=== PATIENT | male | born 1970 | race Caucasian/White ===

== ENCOUNTER 2017-09-19 23:33 | Inpatient (IN) | payer MEDICAID, OTHER ==
[~2017-09-19] VITALS: Ht 180.3 cm; Wt 94.8 kg
[~2017-09-19 23:33] MED LIST: ASPIR 8181 MG ORAL; FERROUS SULFAT325 M2 ORAL; FUROSEMIDE40 MG ORAL; K-DUR20 MEQ ORAL; LISINOPRIL20 MG ORAL; LISINOPRIL5 MG ORAL; METOPROLOL TART50 M1 ORAL; NKM; OMEPRAZOLE20 M2 ORAL; ZAROXOLYN2.5 MG ORAL
[2017-09-19] MEDS ORDERED: NKM (23:51)
[2017-09-20] VITALS (9 sets, daily range): BP systolic 120–156; BP diastolic 74–92
--- NOTE | 2017-09-20 00:08 | Emergency Room Report ---
History of Present Illness General Chief Complaint: Dyspnea/Respdistress Source: Patient Present Illness HPI Patient process with complaints of shortness of breath Reports that he feels like he is drowning Initially complained of chest pain as well midsternal However he associates that with the shortness of breath Denies any vomiting denies any diarrhea Patient has diagnosis of CHF however he reports that he is not taking any diuretics Reports that he was homeless for a while and has not had any medicine Allergies: Coded Allergies: No Known Allergies (Unverified , 09/08/13) Patient History Past Medical History: see triage record Pertinent Family History: none Reviewed Nursing Documentation: PMH: Agreed, PSxH: Agreed Nursing Documentation-PMH Past Medical History: No History, Except For Hx Cardiac Problems: Yes - CHF Hx Hypertension: Yes Hx Pacemaker: No - HIV+ Hx Cancer: No Hx Gastrointestinal Problems: Yes Hx Neurological Problems: No Review of Systems All Other Systems: negative except mentioned in HPI Physical Exam Vital Signs Date Time Temp Pulse Resp B/P (MAP) Pulse Ox O2 Delivery O2 Flow Rate FiO2 09/19/17 23:47 100.1 123 19 151/90 96 Room Air 100.0 Sp02 EP Interpretation: reviewed, normal General Appearance: well appearing, no apparent distress Head: normocephalic, atraumatic Eyes: bilateral eye PERRL, bilateral eye EOMI ENT: hearing grossly normal, normal pharynx, TMs + canals normal, uvula midline Neck: full range of motion, supple, no meningismus, no bony tend Respiratory: no rhonchi, no respiratory distress, no retraction, no accessory muscle use, crackles - Bilaterally Cardiovascular #1: normal peripheral pulses, regular rate, rhythm, no edema, no gallop, no JVD, no murmur Gastrointestinal: normal bowel sounds, non tender, soft, no mass, no organomegaly, non-distended, no guarding, no hernia, no pulsatile mass, no rebound Genitourinary: no CVA tenderness Musculoskeletal: normal inspection Neurologic: oriented x3, responsive, educational specialist III-XII nml as tested, motor strength/ tone normal, sensory intact Psychiatric: mood/affect normal Skin: normal color, no rash, warm/dry, palpation normal Lymphatic: normal inspection, no adenopathy Medical Decision Making Diagnostic Impression: Primary Impression: Acute CHF ER Course Patient is a fairly complex patient with multiple differential to consideration including but not limited to cardiac cardiopulmonary and vascular emergencies Patient's BNP is elevated Chest x-ray shows pulmonary congestion Patient did better with oxygenation and Lasix At this time requires admission for further care Labs Test 09/20/17 00:20 09/20/17 01:20 White Blood Count 6.3 K/UL (4.8-10.8) Red Blood Count 5.31 M/UL (4.70-6.10) Hemoglobin 14.7 G/DL (14.2-18.0) Hematocrit 43.9 % (42.0-52.0) Mean Corpuscular Volume 83 FL (80-99) Mean Corpuscular Hemoglobin 27.7 PG (27.0-31.0) Mean Corpuscular Hemoglobin Concent 33.5 G/DL (32.0-36.0) Red Cell Distribution Width 13.0 % (11.6-14.8) Platelet Count 208 K/UL (150-450) Mean Platelet Volume 8.8 FL (6.5-10.1) Neutrophils (%) (Auto) 65.6 % (45.0-75.0) Lymphocytes (%) (Auto) 23.1 % (20.0-45.0) Monocytes (%) (Auto) 7.8 % (1.0-10.0) Eosinophils (%) (Auto) 1.9 % (0.0-3.0) Basophils (%) (Auto) 1.6 % (0.0-2.0) Sodium Level 131 MMOL/L (136-145) Potassium Level 4.0 MMOL/L (3.5-5.1) Chloride Level 96 MMOL/L (98-107) Carbon Dioxide Level 26 MMOL/L (21-32) Anion Gap 9 mmol/L (5-15) Blood Urea Nitrogen 18 mg/dL (7-18) Creatinine 1.3 MG/DL (0.55-1.30) Estimat Glomerular Filtration Rate 59.2 mL/min (>60) Glucose Level 91 MG/DL (74-106) Calcium Level 9.1 MG/DL (8.5-10.1) Total Bilirubin 0.5 MG/DL (0.2-1.0) Aspartate Amino Transf (AST/SGOT) 44 U/L (15-37) Alanine Aminotransferase (ALT/SGPT) 34 U/L (12-78) Alkaline Phosphatase 65 U/L (46-116) Total Creatine Kinase 76 U/L (26-308) Creatine Kinase MB < 0.5 NG/ML (0.0-3.6) Creatine Kinase MB Relative Index 0.6 Troponin I 0.004 ng/mL (0.000-0.056) Pro-B-Type Natriuretic Peptide 368 pg/mL (0-125) Total Protein 9.9 G/DL (6.4-8.2) Albumin 3.0 G/DL (3.4-5.0) Globulin 6.9 g/dL Albumin/Globulin Ratio 0.4 (1.0-2.7) Urine Opiates Screen Negative (NEGATIVE) Urine Barbiturates Screen Negative (NEGATIVE) Phencyclidine (PCP) Screen Negative (NEGATIVE) Urine Amphetamines Screen Negative (NEGATIVE) Urine Benzodiazepines Screen Negative (NEGATIVE) Urine Cocaine Screen Negative (NEGATIVE) Urine Marijuana (THC) Screen Positive (NEGATIVE) Rhythm Strip Diag. Results EP Interpretation: yes Rate: 78 Rhythm: NSR, no PVC's, no ectopy Chest X-Ray Diagnostic Results Chest X-Ray Diagnostic Results : Chest X-Ray Ordered: Yes # of Views/Limited/Complete: 1 View Indication: Chest Pain EP Interpretation: Yes Interpretation: no consolidation, no effusion, no pneumothorax, other - Pulmonary congestion Impression: Other - CHF Electronically Signed by: DO Sree Mcallister Vital Signs Date Time Temp Pulse Resp B/P (MAP) Pulse Ox O2 Delivery O2 Flow Rate FiO2 09/19/17 23:47 100.1 123 19 151/90 96 Room Air 100.0 Status: improved Disposition: ADMITTED INPATIENT Condition: Serious HEIDI CHOUDHURY D.O. Sep 20, 2017 00:08
[2017-09-20] MEDS ORDERED: Acetaminophen 500mg (ES) tab ORAL ONE (00:15)
[2017-09-20 00:53] LABS: BASOPHILS % (AUTO) 1.6 % (0.0-2.0); EOSINOPHILS % (AUTO) 1.9 % (0.0-3.0); HEMATOCRIT 43.9 % (42.0-52.0); HEMOGLOBIN 14.7 G/DL (14.2-18.0); LYMPHOCYTES % (AUTO) 23.1 % (20.0-45.0); MEAN CORPUSCULAR VOLUME 83 FL (80-99); MONOCYTES % (AUTO) 7.8 % (1.0-10.0); NEUTROPHILS % (AUTO) 65.6 % (45.0-75.0); PLATELET COUNT 208 K/UL (150-450); RED BLOOD COUNT 5.31 M/UL (4.70-6.10); WHITE BLOOD COUNT 6.3 K/UL (4.8-10.8)
[2017-09-20 01:06] LABS: ANION GAP 9 mmol/L (5-15); BLOOD UREA NITROGEN 18 mg/dL (7-18); CALCIUM 9.1 MG/DL (8.5-10.1); CARBON DIOXIDE 26 MMOL/L (21-32); CHLORIDE 96 MMOL/L (98-107); CREATININE 1.3 MG/DL (0.55-1.30); SODIUM 131 MMOL/L (136-145)
[2017-09-20 01:21] LABS: ALANINE AMINOTRANSFERASE 34 U/L (12-78); ALBUMIN/GLOBULIN RATIO 0.4 (1.0-2.7); ALKALINE PHOSPHATASE 65 U/L (46-116); ASPARTATE AMINO TRANSFERASE 44 U/L (15-37); BILIRUBIN,TOTAL 0.5 MG/DL (0.2-1.0); CKMB < 0.5 NG/ML (0.0-3.6); CREATINE KINASE 76 U/L (26-308)
[2017-09-20] MEDS ORDERED: Miralax 17gm pkt ORAL PRN (06:30)
[2017-09-20] MEDS ORDERED: Albuterol/Ipratropium 3ml neb HHN PRN (06:30)
[2017-09-20] MEDS: Metoprolol Tartrate 50mg tab ORAL SCH ×2 (09:34→17:31)
[2017-09-20] MEDS: Lisinopril 20mg tab ORAL SCH (09:34)
[2017-09-20] MEDS: Heparin 5000 units/ml inj SUBQ SCH ×2 (09:35→20:36)
--- NOTE | 2017-09-20 11:55 | Diagnostic Imaging Report ---
Indication: Dyspnea Comparison: 10/05/2013 A single view chest radiograph was obtained. Findings: Interstitial infiltrates versus edema demonstrated. Heart size is relatively normal. Bones are unremarkable. IMPRESSION: Interstitial pneumonitis versus edema. Please correlate clinically.
--- NOTE | 2017-09-20 12:41 | History and Physical ---
History of Present Illness General Date patient seen: Sep 20, 2017 Reason for Hospitalization: Dyspnea/Respdistress Present Illness HPI 47 year old male with hx of severe diastolic heart disease presented to ER with CC of shortness of breath and chest pain as well midsternal Reports that he was homeless for a while and has not had any medicine. He was febrile as well. He is admitted for decompensated heart failure and fever. Allergies: Coded Allergies: No Known Allergies (Unverified , 09/08/13) Medication History Scheduled Aspirin* (Aspir 81*), 81 MG ORAL DAILY, (Reported) Ferrous Sulfate (Ferrous Sulfate), 325 MG ORAL TID, (Reported) Furosemide* (Lasix*), 40 MG ORAL TWICE A DAY, (Reported) Lisinopril (Lisinopril*), 40 MG ORAL DAILY Metolazone (Metolazone), 2.5 MG ORAL DAILY@0845 Metoprolol Tartrate* (Metoprolol Tartrate*), 50 MG ORAL BID, (Reported) No Known Medications* (NKM - No Known Medications*), 0 ., (Reported) Omeprazole (Omeprazole), 20 MG ORAL DAILY, (Reported) Potassium Chloride (Klor-Con M20), 40 MEQ ORAL DAILY Patient History Healthcare decision maker Resuscitation status Full Code Advanced Directive on File No Past Medical/Surgical History Past Medical/Surgical History: (1) EF of 20% (2) HIV (human immunodeficiency virus infection) (3) Cardiomyopathy (4) Low ejection fraction Review of Systems Constitutional: Reports: fever, malaise Respiratory: Reports: cough, orthopnea, VERDUZCO Physical Exam General Appearance: WD/WN Lines, tubes and drains: peripheral HEENT: normocephalic, atraumatic Neck: non-tender, normal alignment Respiratory/Chest: chest wall non-tender, lungs clear Breasts: no masses Cardiovascular/Chest: normal rate Abdomen: normal bowel sounds, non tender Genitourinary/Rectal: normal genital exam, normal rectal exam Extremities: normal range of motion Skin Exam: warm/dry Last 24 Hour Vital Signs Date Time Temp Pulse Resp B/P (MAP) Pulse Ox O2 Delivery O2 Flow Rate FiO2 09/20/17 11:47 102.2 09/20/17 09:34 97 139/88 09/20/17 09:34 139/88 09/20/17 09:00 94 09/20/17 08:00 98.4 97 20 139/88 98 Simple Mask 8.0 98.4 09/20/17 04:00 97.9 95 23 120/82 96 Simple Mask 8.0 97.9 09/20/17 03:55 100.2 105 18 120/76 95 Simple Mask 8.0 100.2 09/20/17 03:00 100.2 105 18 120/76 95 Simple Mask 8.0 100.2 09/20/17 02:30 100.7 105 18 133/77 97 Non-Rebreather 100.7 09/20/17 01:50 100.4 09/20/17 01:30 100.4 110 28 138/92 99 Non-Rebreather 100.4 09/20/17 00:51 103.1 09/20/17 00:15 103.2 119 28 156/89 99 Non-Rebreather 103.2 09/20/17 00:15 118 28 Non-Rebreather 09/19/17 23:47 100.1 123 19 151/90 96 Room Air 100.0 Intake and Output 09/19/17 09/20/17 19:00 07:00 Output Total 700 ml Balance -700 ml Output Urine Total 700 ml # Voids 1 Laboratory Tests Test 09/20/17 00:20 09/20/17 01:20 09/20/17 10:03 White Blood Count 6.3 K/UL (4.8-10.8) Red Blood Count 5.31 M/UL (4.70-6.10) Hemoglobin 14.7 G/DL (14.2-18.0) Hematocrit 43.9 % (42.0-52.0) Mean Corpuscular Volume 83 FL (80-99) Mean Corpuscular Hemoglobin 27.7 PG (27.0-31.0) Mean Corpuscular Hemoglobin Concent 33.5 G/DL (32.0-36.0) Red Cell Distribution Width 13.0 % (11.6-14.8) Platelet Count 208 K/UL (150-450) Mean Platelet Volume 8.8 FL (6.5-10.1) Neutrophils (%) (Auto) 65.6 % (45.0-75.0) Lymphocytes (%) (Auto) 23.1 % (20.0-45.0) Monocytes (%) (Auto) 7.8 % (1.0-10.0) Eosinophils (%) (Auto) 1.9 % (0.0-3.0) Basophils (%) (Auto) 1.6 % (0.0-2.0) Sodium Level 131 MMOL/L (136-145) L Potassium Level 4.0 MMOL/L (3.5-5.1) Chloride Level 96 MMOL/L (98-107) L Carbon Dioxide Level 26 MMOL/L (21-32) Anion Gap 9 mmol/L (5-15) Blood Urea Nitrogen 18 mg/dL (7-18) Creatinine 1.3 MG/DL (0.55-1.30) Estimat Glomerular Filtration Rate 59.2 mL/min (>60) Glucose Level 91 MG/DL (74-106) Calcium Level 9.1 MG/DL (8.5-10.1) Total Bilirubin 0.5 MG/DL (0.2-1.0) Aspartate Amino Transf (AST/SGOT) 44 U/L (15-37) H Alanine Aminotransferase (ALT/SGPT) 34 U/L (12-78) Alkaline Phosphatase 65 U/L (46-116) Total Creatine Kinase 76 U/L (26-308) Creatine Kinase MB < 0.5 NG/ML (0.0-3.6) Creatine Kinase MB Relative Index 0.6 Troponin I 0.004 ng/mL (0.000-0.056) 0.006 ng/mL (0.000-0.056) Pro-B-Type Natriuretic Peptide 368 pg/mL (0-125) H Total Protein 9.9 G/DL (6.4-8.2) H Albumin 3.0 G/DL (3.4-5.0) L Globulin 6.9 g/dL Albumin/Globulin Ratio 0.4 (1.0-2.7) L Urine Opiates Screen Negative (NEGATIVE) Urine Barbiturates Screen Negative (NEGATIVE) Phencyclidine (PCP) Screen Negative (NEGATIVE) Urine Amphetamines Screen Negative (NEGATIVE) Urine Benzodiazepines Screen Negative (NEGATIVE) Urine Cocaine Screen Negative (NEGATIVE) Urine Marijuana (THC) Screen Positive (NEGATIVE) H Height (Feet): 5 Height (Inches): 11.00 Weight (Pounds): 209 Medications Current Medications Medications (Trade) Dose Ordered Sig/Beau Route PRN Reason Start Time Stop Time Status Last Admin Dose Admin Acetaminophen (Tylenol) 650 mg Q4H PRN ORAL Fever 09/20/17 06:30 10/20/17 06:29 09/20/17 11:47 Albuterol/ Ipratropium (Albuterol/ Ipratropium) 3 ml Q4H PRN HHN Shortness of Breath 09/20/17 06:30 09/25/17 06:29 Dextrose (Dextrose 50%) STAT PRN IV Hypoglycemia 09/20/17 06:30 10/20/17 06:29 Furosemide (Lasix) 40 mg EVERY 8 HOURS IV 09/20/17 14:00 10/20/17 13:59 Heparin Sodium (Porcine) (Heparin 5000 units/ml) 5,000 units EVERY 12 HOURS SUBQ 09/20/17 09:00 10/20/17 08:59 09/20/17 09:35 Lisinopril (Prinivil) 40 mg DAILY ORAL 09/20/17 09:00 10/20/17 08:59 09/20/17 09:34 Metoprolol Tartrate (Lopressor) 50 mg BID ORAL 09/20/17 09:00 10/20/17 08:59 09/20/17 09:34 Ondansetron HCl (Zofran) 4 mg Q6H PRN IVP Nausea & Vomiting 09/20/17 06:30 10/20/17 06:29 Polyethylene Glycol (Miralax) 17 gm DAILYPRN PRN ORAL Constipation 09/20/17 06:30 10/20/17 06:29 Temazepam (Restoril) 15 mg HSPRN PRN ORAL Insomnia 09/20/17 06:30 09/27/17 06:29 Assessment/Plan Problem List: (1) Fever ICD Codes: R50.9 - Fever, unspecified SNOMED: 703375758 (2) Acute CHF ICD Codes: I50.9 - Heart failure, unspecified SNOMED: 98151205 (3) HIV (human immunodeficiency virus infection) ICD Codes: Z21 - HIV (human immunodeficiency virus infection) SNOMED: 25540900 (4) EF of 20% (5) Cardiomyopathy Assessment/Plan admit to [facility] diuretics echo cardiac evaluation [place] ENEDELIA Lang Sep 20, 2017 12:41
[2017-09-20] MEDS: Oseltamivir 75mg cap ORAL SCH ×2 (14:38→22:31)
--- NOTE | 2017-09-20 20:16 | Cardiology Progress Note ---
Assessment/Plan Assessment/Plan dc metorpolol swtih to coreg keep on acie needs diurtic need med to keep out of hospital othewise faces readmisssion na and fludi restrcition [id number] Objective Last 24 Hour Vital Signs Date Time Temp Pulse Resp B/P (MAP) Pulse Ox O2 Delivery O2 Flow Rate FiO2 09/20/17 17:31 79 130/87 09/20/17 16:00 79 09/20/17 16:00 97.7 78 20 130/87 95 Simple Mask 8.0 97.7 09/20/17 12:46 99.5 09/20/17 12:00 102.2 106 20 138/86 95 Simple Mask 8.0 102.2 09/20/17 12:00 105 09/20/17 11:47 102.2 09/20/17 09:34 97 139/88 09/20/17 09:34 139/88 09/20/17 09:00 94 09/20/17 08:00 98.4 97 20 139/88 98 Simple Mask 8.0 98.4 09/20/17 04:00 97.9 95 23 120/82 96 Simple Mask 8.0 97.9 09/20/17 03:55 100.2 105 18 120/76 95 Simple Mask 8.0 100.2 09/20/17 03:00 100.2 105 18 120/76 95 Simple Mask 8.0 100.2 09/20/17 02:30 100.7 105 18 133/77 97 Non-Rebreather 100.7 09/20/17 01:50 100.4 09/20/17 01:30 100.4 110 28 138/92 99 Non-Rebreather 100.4 09/20/17 00:51 103.1 09/20/17 00:15 103.2 119 28 156/89 99 Non-Rebreather 103.2 09/20/17 00:15 118 28 Non-Rebreather 09/19/17 23:47 100.1 123 19 151/90 96 Room Air 100.0 Intake and Output 09/19/17 09/20/17 19:00 07:00 Output Total 700 ml Balance -700 ml Output Urine Total 700 ml # Voids 1 Laboratory Tests Test 09/20/17 00:20 09/20/17 01:20 09/20/17 10:03 White Blood Count 6.3 K/UL (4.8-10.8) Red Blood Count 5.31 M/UL (4.70-6.10) Hemoglobin 14.7 G/DL (14.2-18.0) Hematocrit 43.9 % (42.0-52.0) Mean Corpuscular Volume 83 FL (80-99) Mean Corpuscular Hemoglobin 27.7 PG (27.0-31.0) Mean Corpuscular Hemoglobin Concent 33.5 G/DL (32.0-36.0) Red Cell Distribution Width 13.0 % (11.6-14.8) Platelet Count 208 K/UL (150-450) Mean Platelet Volume 8.8 FL (6.5-10.1) Neutrophils (%) (Auto) 65.6 % (45.0-75.0) Lymphocytes (%) (Auto) 23.1 % (20.0-45.0) Monocytes (%) (Auto) 7.8 % (1.0-10.0) Eosinophils (%) (Auto) 1.9 % (0.0-3.0) Basophils (%) (Auto) 1.6 % (0.0-2.0) Sodium Level 131 MMOL/L (136-145) L Potassium Level 4.0 MMOL/L (3.5-5.1) Chloride Level 96 MMOL/L (98-107) L Carbon Dioxide Level 26 MMOL/L (21-32) Anion Gap 9 mmol/L (5-15) Blood Urea Nitrogen 18 mg/dL (7-18) Creatinine 1.3 MG/DL (0.55-1.30) Estimat Glomerular Filtration Rate 59.2 mL/min (>60) Glucose Level 91 MG/DL (74-106) Calcium Level 9.1 MG/DL (8.5-10.1) Total Bilirubin 0.5 MG/DL (0.2-1.0) Aspartate Amino Transf (AST/SGOT) 44 U/L (15-37) H Alanine Aminotransferase (ALT/SGPT) 34 U/L (12-78) Alkaline Phosphatase 65 U/L (46-116) Total Creatine Kinase 76 U/L (26-308) Creatine Kinase MB < 0.5 NG/ML (0.0-3.6) Creatine Kinase MB Relative Index 0.6 Troponin I 0.004 ng/mL (0.000-0.056) 0.006 ng/mL (0.000-0.056) Pro-B-Type Natriuretic Peptide 368 pg/mL (0-125) H Total Protein 9.9 G/DL (6.4-8.2) H Albumin 3.0 G/DL (3.4-5.0) L Globulin 6.9 g/dL Albumin/Globulin Ratio 0.4 (1.0-2.7) L Urine Opiates Screen Negative (NEGATIVE) Urine Barbiturates Screen Negative (NEGATIVE) Phencyclidine (PCP) Screen Negative (NEGATIVE) Urine Amphetamines Screen Negative (NEGATIVE) Urine Benzodiazepines Screen Negative (NEGATIVE) Urine Cocaine Screen Negative (NEGATIVE) Urine Marijuana (THC) Screen Positive (NEGATIVE) NAY LERNER Sep 20, 2017 20:16
[2017-09-20] MEDS: Carvedilol 6.25mg Tab ORAL SCH (20:35)
[2017-09-21] VITALS: BP 122/65
[2017-09-21 04:00] VITALS: BP 110/56
--- NOTE | 2017-09-21 05:00 | Consultation ---
DATE OF CONSULTATION: 09/20/2017 CARDIOLOGY CONSULTATION CONSULTING PHYSICIAN: Jerrod Sanders M.D. REFERRING PHYSICIAN: Lyn Wesley M.D. REASON FOR REFERRAL: Congestive heart failure. HISTORY OF PRESENT ILLNESS: The patient is a 47-year-old gentleman with history of HIV, congestive heart failure, who is not on any medications at all. He is from [place]. He has not had any medications or treatment. He comes in because of increasing shortness of breath over the past two days, although at the present time he feels better, but he has shortness of breath increasing. He does have occasional episodes of PND, sits up, and when eventually improves he goes back to bed. He has dyspnea on exertion. He has palpitation. No chest pain or pressure. There are rare episodes of dizziness and lightheadedness. PAST MEDICAL HISTORY: Positive for congestive heart failure, history of hypertension, HIV, . ALLERGIES: He is not allergic to any medications. SOCIAL HISTORY: He used to drink alcoholic beverages tobacco more than 10 years ago. No drug use he says. . REVIEW OF SYSTEMS: GASTROINTESTINAL: Positive for some nausea today GENITOURINARY: Negative. PULMONARY: Negative. CONSTITUTIONAL: Negative. NEUROLOGICAL: Negative. PHYSICAL EXAMINATION: GENERAL: Shows to be middle-aged gentleman, in no respiratory distress. NECK: Supple. No jugular venous distention. LUNGS: Appear to be relatively clear to auscultation and percussion. CARDIAC: S1 is normal. S2 is normal. Regular rate and rhythm. No heaves, thrills, gallops, rubs noted. ABDOMEN: Soft and nontender. Positive bowel sounds. EXTREMITIES: There is no clubbing, cyanosis, or edema. NEUROLOGIC: He is awake, alert, responsive, in no apparent distress. LABORATORY AND DIAGNOSTIC DATA: White count of 6.3, hemoglobin 14.7, and platelet count of 208. Sodium is 131, potassium 4.0, chloride 96, bicarbonate 26, BUN of 18, creatinine 1.3, and glucose of 91. AST and ALT are normal. Troponin is 0.004 and 0.006. ProBNP only 368. Total protein 9.9. His toxicology screen is positive for marijuana. Chest x-ray was performed that showed interstitial pneumonitis versus edema. His diagnostic imaging shows patent bilateral lower extremity venous system. He has had echocardiogram, preliminary report ejection fraction of 45% to 50%, global hypokinesis, no significant valvular dysfunction. EKG basically shows sinus rhythm, leftward axis. ASSESSMENT AND PLAN: 1. Congestive heart failure exacerbation, acute systolic. 2. Hypertension, untreated. 3. Medication noncompliance. 4. Human immunodeficiency virus with medication noncompliance. This patient was seen in cardiac consultation. The patient has evidence of congestive heart failure and has improved significantly since being admitted. He needs to be on a combination of LELAND inhibitors, beta-blockers, and diuretics as outpatient. Unfortunately, he has no insurance to pay for any of these medications, although he has improved. He is likely to have recurrent admission if he does not get his medications. Social workers need to be consulted to help manage his insurance status to allow him to get medications for long-term benefit for cardiomyopathy as well as his human immunodeficiency virus. He needs to have sodium and fluid restriction. We will have dietitian see him. Jerrod Sanders M.D. DR: Stacey JOB#: [id number] CC:
[2017-09-21 07:42] LABS: BASOPHILS % (AUTO) 1.1 % (0.0-2.0); HEMATOCRIT 40.9 % (42.0-52.0); MEAN CORPUSCULAR VOLUME 83 FL (80-99); MONOCYTES % (AUTO) 5.9 % (1.0-10.0); NEUTROPHILS % (AUTO) 64.9 % (45.0-75.0); PLATELET COUNT 200 K/UL (150-450); RED BLOOD COUNT 4.92 M/UL (4.70-6.10); RED CELL DISTRIBUTION WIDTH 13.1 % (11.6-14.8); WHITE BLOOD COUNT 6.1 K/UL (4.8-10.8)
[2017-09-21 08:00] VITALS: BP 118/64
[2017-09-21 08:05] LABS: ALANINE AMINOTRANSFERASE 26 U/L (12-78); ALBUMIN 2.5 G/DL (3.4-5.0); ALBUMIN/GLOBULIN RATIO 0.4 (1.0-2.7); ALKALINE PHOSPHATASE 46 U/L (46-116); ANION GAP 7 mmol/L (5-15); ASPARTATE AMINO TRANSFERASE 34 U/L (15-37); BILIRUBIN,TOTAL 0.4 MG/DL (0.2-1.0); BLOOD UREA NITROGEN 23 mg/dL (7-18); CARBON DIOXIDE 27 MMOL/L (21-32); CHLORIDE 97 MMOL/L (98-107); CREATININE 1.3 MG/DL (0.55-1.30); PHOSPHORUS 3.9 MG/DL (2.5-4.9); POTASSIUM 3.7 MMOL/L (3.5-5.1); SODIUM 131 MMOL/L (136-145)
[2017-09-21] MEDS: Carvedilol 6.25mg Tab ORAL SCH ×2 (09:18→20:53)
[2017-09-21] MEDS: Heparin 5000 units/ml inj SUBQ SCH ×2 (09:19→20:58)
[2017-09-21] MEDS: Lisinopril 20mg tab ORAL SCH (09:20)
[2017-09-21] MEDS: Oseltamivir 75mg cap ORAL SCH ×2 (09:20→20:52)
--- NOTE | 2017-09-21 10:49 | Diagnostic Imaging Report ---
Indication: Dyspnea Comparison: 09/20/2018 A single view chest radiograph was obtained. Findings: Bilateral infiltrates are present primarily interstitial involving upper lungs left perihilar region. Distribution of disease is asymmetric and suggests an inflammatory process. Please correlate clinically. Heart size is normal. The bones are unremarkable. No pleural effusions are seen. IMPRESSION: Bilateral infiltrates primarily upper lung hart and interstitial suspicious for pneumonia.
--- NOTE | 2017-09-21 11:50 | Pulmonology Progress Note ---
Assessment/Plan Problems: (1) Fever (2) Acute CHF (3) HIV (human immunodeficiency virus infection) (4) Cardiomyopathy Assessment/Plan chf resolved febrile now ID evaluation continue diuretics check electrolytes fever w/u. Subjective ROS Limited/Unobtainable: No Constitutional: Reports: no symptoms HEENT: Repors: no symptoms Respiratory: Reports: no symptoms Allergies: Coded Allergies: No Known Allergies (Unverified , 09/08/13) Objective Last 24 Hour Vital Signs Date Time Temp Pulse Resp B/P (MAP) Pulse Ox O2 Delivery O2 Flow Rate FiO2 09/21/17 09:20 118/64 09/21/17 09:18 93 118/64 09/21/17 08:00 99.9 93 20 118/64 94 Nasal Cannula 4.0 99.9 09/21/17 07:41 87 18 Nasal Cannula 3.0 32 09/21/17 07:41 95 Nasal Cannula 3.0 32 09/21/17 07:41 Nasal Cannula 3.0 32 09/21/17 04:00 96.9 84 19 110/56 92 Nasal Cannula 2.0 96.9 09/21/17 04:00 86 09/21/17 00:00 97.5 80 19 122/65 92 Nasal Cannula 2.0 97.5 09/21/17 00:00 78 09/20/17 21:34 98.2 09/20/17 20:35 83 129/74 09/20/17 20:35 101.7 09/20/17 20:00 84 09/20/17 20:00 101.7 83 18 129/74 93 Nasal Cannula 2.0 101.7 09/20/17 17:31 79 130/87 09/20/17 16:00 79 09/20/17 16:00 97.7 78 20 130/87 95 Simple Mask 8.0 97.7 09/20/17 12:00 102.2 106 20 138/86 95 Simple Mask 8.0 102.2 09/20/17 12:00 105 Intake and Output 09/20/17 09/21/17 19:00 07:00 Intake Total 708 ml 116 ml Output Total 250 ml 400 ml Balance 458 ml -284 ml Intake Oral 708 ml 116 ml Output Urine Total 250 ml 400 ml # Voids 1 1 General Appearance: WD/WN HEENT: normocephalic Respiratory/Chest: chest wall non-tender, lungs clear Cardiovascular: normal peripheral pulses, normal rate, regular rhythm Abdomen: normal bowel sounds, soft, non tender, no scars Genitourinary: normal external genitalia Extremities: no clubbing Skin: no rash, no lesions, no ulcers Microbiology Date/Time Source Procedure Growth Status 09/20/17 00:35 Blood Blood Culture - Preliminary NO GROWTH AFTER 24 HOURS Resulted 09/20/17 00:20 Blood Blood Culture - Preliminary NO GROWTH AFTER 24 HOURS Resulted Laboratory Tests 09/21/17 06:20: White Blood Count 6.1, Red Blood Count 4.92, Hemoglobin 14.0L, Hematocrit 40.9L , Mean Corpuscular Volume 83, Mean Corpuscular Hemoglobin 28.5, Mean Corpuscular Hemoglobin Concent 34.3, Red Cell Distribution Width 13.1, Platelet Count 200, Mean Platelet Volume 8.8, Neutrophils (%) (Auto) 64.9, Lymphocytes (% ) (Auto) 27.0, Monocytes (%) (Auto) 5.9, Eosinophils (%) (Auto) 1.0, Basophils ( %) (Auto) 1.1, Sodium Level 131L, Potassium Level 3.7, Chloride Level 97L, Carbon Dioxide Level 27, Anion Gap 7, Blood Urea Nitrogen 23H, Creatinine 1.3, Estimat Glomerular Filtration Rate 59.2, Glucose Level 108H, Calcium Level 9.0, Phosphorus Level 3.9, Total Bilirubin 0.4, Aspartate Amino Transf (AST/SGOT) 34 , Alanine Aminotransferase (ALT/SGPT) 26, Alkaline Phosphatase 46, Troponin I 0.020, Pro-B-Type Natriuretic Peptide 216H, Total Protein 8.9H, Albumin 2.5L, Globulin 6.4, Albumin/Globulin Ratio 0.4L Current Medications Medications (Trade) Dose Ordered Sig/Beau Route PRN Reason Start Time Stop Time Status Last Admin Dose Admin Acetaminophen (Tylenol) 650 mg Q4H PRN ORAL Fever 09/20/17 06:30 10/20/17 06:29 09/20/17 20:35 Albuterol/ Ipratropium (Albuterol/ Ipratropium) 3 ml Q4H PRN HHN Shortness of Breath 09/20/17 06:30 09/25/17 06:29 Carvedilol (Coreg) 6.25 mg EVERY 12 HOURS ORAL 09/20/17 21:00 10/20/17 20:59 09/21/17 09:18 Dextrose (Dextrose 50%) STAT PRN IV Hypoglycemia 09/20/17 06:30 10/20/17 06:29 Heparin Sodium (Porcine) (Heparin 5000 units/ml) 5,000 units EVERY 12 HOURS SUBQ 09/20/17 09:00 10/20/17 08:59 09/21/17 09:19 Lisinopril (Prinivil) 40 mg DAILY ORAL 09/20/17 09:00 10/20/17 08:59 09/21/17 09:20 Ondansetron HCl (Zofran) 4 mg Q6H PRN IVP Nausea & Vomiting 09/20/17 06:30 10/20/17 06:29 09/21/17 00:35 Oseltamivir Phosphate (Tamiflu) 75 mg Q12HR ORAL 09/20/17 14:00 09/25/17 13:59 09/21/17 09:20 Polyethylene Glycol (Miralax) 17 gm DAILYPRN PRN ORAL Constipation 09/20/17 06:30 10/20/17 06:29 Temazepam (Restoril) 15 mg HSPRN PRN ORAL Insomnia 09/20/17 06:30 09/27/17 06:29 EENDELIA FANG Sep 21, 2017 11:50
[2017-09-21 12:00] VITALS: BP 124/54
--- NOTE | 2017-09-21 13:13 | Cardiology Progress Note ---
Assessment/Plan Assessment/Plan 1. Congestive heart failure exacerbation, acute systolic. 2. Hypertension, untreated. 3. Medication noncompliance. 4. Human immunodeficiency virus with medication noncompliance. 5. Fever ? pulmonary infection vs others keep on acei diurtic low dose bb increase in futuer echo to be reviewed id eval; pending Subjective Cardiovascular: Denies: chest pain, lightheadedness, palpitations Respiratory: Reports: cough - min , shortness of breath, SOB with excertion Gastrointestinal/Abdominal: Denies: abdominal pain Genitourinary: Denies: burning Objective Last 24 Hour Vital Signs Date Time Temp Pulse Resp B/P (MAP) Pulse Ox O2 Delivery O2 Flow Rate FiO2 09/21/17 12:00 84 09/21/17 09:20 118/64 09/21/17 09:18 93 118/64 09/21/17 08:00 99.9 93 20 118/64 94 Nasal Cannula 4.0 99.9 09/21/17 08:00 92 09/21/17 07:41 87 18 Nasal Cannula 3.0 32 09/21/17 07:41 95 Nasal Cannula 3.0 32 09/21/17 07:41 Nasal Cannula 3.0 32 09/21/17 04:00 96.9 84 19 110/56 92 Nasal Cannula 2.0 96.9 09/21/17 04:00 86 09/21/17 00:00 97.5 80 19 122/65 92 Nasal Cannula 2.0 97.5 09/21/17 00:00 78 09/20/17 21:34 98.2 09/20/17 20:35 83 129/74 09/20/17 20:35 101.7 09/20/17 20:00 84 09/20/17 20:00 101.7 83 18 129/74 93 Nasal Cannula 2.0 101.7 09/20/17 17:31 79 130/87 09/20/17 16:00 79 09/20/17 16:00 97.7 78 20 130/87 95 Simple Mask 8.0 97.7 General Appearance: no apparent distress, alert Neck: supple Respiratory/Chest: crackles/rales - left greater than right Abdomen: normal bowel sounds, non tender, soft Extremities: no swelling Intake and Output 09/20/17 09/21/17 19:00 07:00 Intake Total 708 ml 116 ml Output Total 250 ml 400 ml Balance 458 ml -284 ml Intake Oral 708 ml 116 ml Output Urine Total 250 ml 400 ml # Voids 1 1 Laboratory Tests Test 09/21/17 06:20 White Blood Count 6.1 K/UL (4.8-10.8) Red Blood Count 4.92 M/UL (4.70-6.10) Hemoglobin 14.0 G/DL (14.2-18.0) L Hematocrit 40.9 % (42.0-52.0) L Mean Corpuscular Volume 83 FL (80-99) Mean Corpuscular Hemoglobin 28.5 PG (27.0-31.0) Mean Corpuscular Hemoglobin Concent 34.3 G/DL (32.0-36.0) Red Cell Distribution Width 13.1 % (11.6-14.8) Platelet Count 200 K/UL (150-450) Mean Platelet Volume 8.8 FL (6.5-10.1) Neutrophils (%) (Auto) 64.9 % (45.0-75.0) Lymphocytes (%) (Auto) 27.0 % (20.0-45.0) Monocytes (%) (Auto) 5.9 % (1.0-10.0) Eosinophils (%) (Auto) 1.0 % (0.0-3.0) Basophils (%) (Auto) 1.1 % (0.0-2.0) Sodium Level 131 MMOL/L (136-145) L Potassium Level 3.7 MMOL/L (3.5-5.1) Chloride Level 97 MMOL/L (98-107) L Carbon Dioxide Level 27 MMOL/L (21-32) Anion Gap 7 mmol/L (5-15) Blood Urea Nitrogen 23 mg/dL (7-18) H Creatinine 1.3 MG/DL (0.55-1.30) Estimat Glomerular Filtration Rate 59.2 mL/min (>60) Glucose Level 108 MG/DL (74-106) H Calcium Level 9.0 MG/DL (8.5-10.1) Phosphorus Level 3.9 MG/DL (2.5-4.9) Total Bilirubin 0.4 MG/DL (0.2-1.0) Aspartate Amino Transf (AST/SGOT) 34 U/L (15-37) Alanine Aminotransferase (ALT/SGPT) 26 U/L (12-78) Alkaline Phosphatase 46 U/L (46-116) Troponin I 0.020 ng/mL (0.000-0.056) Pro-B-Type Natriuretic Peptide 216 pg/mL (0-125) H Total Protein 8.9 G/DL (6.4-8.2) H Albumin 2.5 G/DL (3.4-5.0) L Globulin 6.4 g/dL Albumin/Globulin Ratio 0.4 (1.0-2.7) L Microbiology Date/Time Source Procedure Growth Status 09/20/17 00:35 Blood Blood Culture - Preliminary NO GROWTH AFTER 24 HOURS Resulted 09/20/17 00:20 Blood Blood Culture - Preliminary NO GROWTH AFTER 24 HOURS Resulted NAY BEDOLLA Sep 21, 2017 13:13
[2017-09-21 16:05] VITALS: BP 114/67
[2017-09-21] MEDS ORDERED: Albuterol/Ipratropium 3ml neb HHN PRN (16:24)
[2017-09-21] MEDS ORDERED: Miralax 17gm pkt ORAL PRN (16:25)
[2017-09-21 17:05] LABS: APPEARANCE,URINE CLEAR; BILIRUBIN, URINE NEGATIVE (NEGATIVE); COLOR,URINE YELLOW; GLUCOSE, URINE (UA) NEGATIVE (NEGATIVE); KETONES,URINE NEGATIVE (NEGATIVE); LEUKOCYTE ESTERASE ,URINE 1+ (NEGATIVE); NITRITE,URINE NEGATIVE (NEGATIVE); PH,URINE 5 (4.5-8.0); PROTEIN,URINE 2+ (NEGATIVE); UROBILINOGEN,URINE NORMAL MG/DL (0.0-1.0)
[2017-09-21 20:00] VITALS: BP 126/77
[2017-09-21] MEDS ORDERED: DiphenhydrAMINE 50mg/ml Inj IVP PRN (22:15)
--- NOTE | 2017-09-21 23:13 | Consultation ---
Consult Note Consult Note ID DIC # [id number] MARVEL CARDONA M.D. Sep 21, 2017 23:13
[2017-09-21] MEDS ORDERED: Azithromycin 500 MG in D5W 275 ML IV SCH (23:30)
[2017-09-21] MEDS ORDERED: Azithromycin 500mg Inj IV ONE (23:54)
[2017-09-22] MEDS: Solu-MEDROL 125mg Inj IVP SCH ×4 (00:18→17:44)
[2017-09-22 00:41] VITALS: BP 119/68
[2017-09-22] MEDS ORDERED: cefTRIAXone 1 GM in D5W 55 ML IVPB SCH (01:00)
[2017-09-22 04:00] VITALS: BP 103/67
[2017-09-22 08:15] VITALS: BP 102/64
--- NOTE | 2017-09-22 08:47 | Consultation ---
DATE OF CONSULTATION: 09/22/2017 INFECTIOUS DISEASES CONSULTATION CONSULTING PHYSICIAN: Tramaine Wick M.D. REFERRING PHYSICIAN: Lyn Wesley M.D. REASON FOR CONSULTATION: Evaluation of the patient for fever, HIV, and antibiotic management. HISTORY OF PRESENT ILLNESS: The patient is a 47-year-old male with multiple medical problems including history of CHF, hypertension, HIV diagnosed four years ago, who was not taking any HIV medication for the last one year due to depression. The patient was admitted to this medical center due to failure to thrive and shortness of breath. The patient was found to be febrile. Infectious Diseases consultation has been requested for further evaluation of the patient's antibiotic management. PAST MEDICAL HISTORY: 1. HIV, unknown CD4 count, noncompliant with the medication for the last one year, however, no history of AIDS according to him. 2. Hypertension. 3. History of diverticulitis. 4. Anxiety/depression. 5. CHF. MEDICATIONS: On Tamiflu. ALLERGIES: No known drug allergies. SOCIAL HISTORY: Negative for alcohol, drug abuse, or smoking. FAMILY HISTORY: Not contributing. REVIEW OF SYSTEMS: HEENT: No recent change in vision or hearing. PULMONARY: Has mild cough and shortness of breath. CARDIOVASCULAR: No chest pain. GASTROINTESTINAL/ABDOMEN: No nausea or vomiting. GENITOURINARY: No dysuria. PHYSICAL EXAMINATION: VITAL SIGNS: Temperature 100.7, T-max 101.7. HEENT: No pale conjunctivae. No icterus. NECK: No lymphadenopathy. CHEST: Coarse breathing sounds. HEART: S1 and S2. ABDOMEN: Soft and nontender. EXTREMITIES: No cyanosis at this time. NEUROLOGIC: Awake. LABORATORY AND DIAGNOSTIC DATA: White blood cells 6, hemoglobin 14, and platelets 200. UA unremarkable. BUN 23 and creatinine 1.3. Liver function tests are unremarkable. CD4 count back in 2013 was 283. Hepatitis panel in 2014 was negative. Blood culture is pending. Chest x-ray showed bilateral infiltrates primarily in upper lung hart suspicious for pneumonia. Doppler of lower extremity, no DVT. ASSESSMENT: The patient is a 47-year-old male with: 1. Fever. 2. Normal white blood cells. 3. HIV, unknown CD4 count, off of HIV medication for the last one year. 4. Community-acquired pneumonia. 5. History of CHF exacerbation. 6. ? influenza. PLAN: 1. Continue the patient on Tamiflu the patient on Rocephin and Zithromax day #1. 2. Monitor CBC. 3. Monitor BMP. 4. Monitor cultures (sputum and blood). 5. CD4 count. 6. Monitor chest x-ray. 7. Rapid influenza test. 8. Based on the patient's clinical course and laboratories, we will do further recommendations. Thank you Dr. Wesley for allowing me to participate in the care of this patient. I will follow the patient with you during this hospitalization. Tramaine Wick M.D. DR: MARIAH JOB#: [id number] CC:
[2017-09-22] MEDS: Carvedilol 6.25mg Tab ORAL SCH (08:51)
[2017-09-22] MEDS: Oseltamivir 75mg cap ORAL SCH (08:52)
[2017-09-22] MEDS: Heparin 5000 units/ml inj SUBQ SCH (08:56)
[2017-09-22] MEDS ORDERED: Lisinopril 20mg tab ORAL SCH (09:00)
--- NOTE | 2017-09-22 10:24 | Infectious Diseases Prog Note ---
Assessment/Plan Assessment/Plan ASSESSMENT: The patient is a 47-year-old male with: Fever, improving Normal WBC HIV, unknown CD4 count, off of HIV medication for the last one year CD4 count back in 2013 was 283. Hepatitis panel in 2013 was negative CAPn X-ray: bilateral infiltrates primarily in upper lung hart suspicious for pneumonia influenza : neg History of CHF exacerbation. HTN History of diverticulitis Anxiety/depression CHF PLAN: Continue the patient on Rocephin and Zithromax day #2/ 5-7 and DC Tamiflu d# 2 Monitor CBC Monitor BMP. Monitor cultures (sputum and blood). CD4 count. Monitor chest x-ray. Subjective Allergies: Coded Allergies: No Known Allergies (Unverified , 09/08/13) Subjective afebrile Objective Vital Signs Last 24 Hour Vital Signs Date Time Temp Pulse Resp B/P (MAP) Pulse Ox O2 Delivery O2 Flow Rate FiO2 09/22/17 08:52 102/64 09/22/17 08:51 93 102/64 09/22/17 08:15 4.0 09/22/17 08:15 97.9 71 18 102/64 93 Nasal Cannula 97.9 93 09/22/17 08:00 Nasal Cannula 4.0 09/22/17 04:00 97.3 66 19 103/67 98 Nasal Cannula 4.0 97.3 09/22/17 02:50 98.2 98.2 09/22/17 00:41 99.4 92 20 119/68 91 Nasal Cannula 4.0 99.4 09/21/17 21:52 99.5 09/21/17 20:53 85 126/77 09/21/17 20:53 100.7 09/21/17 20:37 85 18 95 Simple Mask 5.0 09/21/17 20:00 100.7 92 20 126/77 93 Nasal Cannula 4.0 100.7 09/21/17 19:53 Nasal Cannula 4.0 09/21/17 19:53 92 18 94 Nasal Cannula 4.0 09/21/17 19:53 94 Nasal Cannula 4.0 09/21/17 19:52 92 18 Nasal Cannula 4.0 09/21/17 16:05 98.4 87 20 114/67 95 98.4 09/21/17 12:00 84 09/21/17 12:00 98.9 89 20 124/54 90 Nasal Cannula 4.0 98.9 Height (Feet): 5 Height (Inches): 11.00 Weight (Pounds): 209 HEENT: mucous membranes moist Respiratory/Chest: normal breath sounds Cardiovascular: normal rate Abdomen: soft, non tender Microbiology Date/Time Source Procedure Growth Status 09/20/17 00:35 Blood Blood Culture - Preliminary NO GROWTH AFTER 48 HOURS Resulted 09/20/17 00:20 Blood Blood Culture - Preliminary NO GROWTH AFTER 48 HOURS Resulted 09/22/17 01:00 Nasopharynx Influenza Types A,B Antigen (JOSLYN) - Final Complete 09/21/17 16:00 Sputum Gram Stain Pending Resulted 09/21/17 16:00 Sputum Sputum Culture - Preliminary NORMAL UPPER RESPIRATORY XENIA AT 24 ... Resulted Laboratory Tests Test 09/21/17 16:30 09/22/17 06:20 Urine Color Yellow Urine Appearance Clear Urine pH 5 (4.5-8.0) Urine Specific [place] 1.020 (1.005-1.035) Urine Protein 2+ (NEGATIVE) H Urine Glucose (UA) Negative (NEGATIVE) Urine Ketones Negative (NEGATIVE) Urine Occult Blood 1+ (NEGATIVE) H Urine Nitrite Negative (NEGATIVE) Urine Bilirubin Negative (NEGATIVE) Urine Urobilinogen Normal MG/DL (0.0-1.0) Urine Leukocyte Esterase 1+ (NEGATIVE) H Urine RBC 0-2 /HPF (0 - 0) H Urine WBC 0-2 /HPF (0 - 0) Urine Squamous Epithelial Cells None /LPF (NONE/OCC) Urine Bacteria Occasional /HPF (NONE) White Blood Count Pending Lymphocytes Pending Troponin I 0.017 ng/mL (0.000-0.056) C-Reactive Protein, Quantitative 7.0 mg/dL (0.00-0.90) H Percent CD3 Cells Pending Absolute CD3 Count Pending Percent CD4 Cells Pending Absolute CD4 Count Pending T-Lymphocyte CD4/CD8 Ratio Pending Percent CD8 Cells Pending Absolute CD8 Count Pending Current Medications Medications (Trade) Dose Ordered Sig/Beau Route PRN Reason Start Time Stop Time Status Last Admin Dose Admin Acetaminophen (Tylenol) 650 mg Q4H PRN ORAL Fever 09/21/17 16:24 10/20/17 16:23 09/21/17 20:53 Albuterol/ Ipratropium (Albuterol/ Ipratropium) 3 ml Q4H PRN HHN Shortness of Breath 09/21/17 16:24 09/25/17 16:23 09/21/17 19:52 Azithromycin 500 mg/Dextrose 275 ml @ 275 mls/hr Q24HRS IV 09/21/17 23:30 09/28/17 00:29 09/22/17 00:18 Carvedilol (Coreg) 6.25 mg EVERY 12 HOURS ORAL 09/21/17 21:00 10/20/17 20:59 09/22/17 08:51 Ceftriaxone Sodium 1 gm/ Sodium Chloride 55 ml @ 110 mls/hr Q24H IVPB 09/23/17 01:00 09/30/17 00:59 Dextrose (Dextrose 50%) STAT PRN IV Hypoglycemia 09/21/17 16:24 10/21/17 16:23 Diphenhydramine HCl (Benadryl) 25 mg Q6H PRN IVP Itching 09/21/17 22:15 10/21/17 22:14 09/21/17 22:40 Heparin Sodium (Porcine) (Heparin 5000 units/ml) 5,000 units EVERY 12 HOURS SUBQ 09/21/17 21:00 10/20/17 08:59 09/22/17 08:56 Lisinopril (Prinivil) 40 mg DAILY ORAL 09/22/17 09:00 10/20/17 08:59 09/22/17 08:52 Methylprednisolone Sodium Succinate (Solu-MEDROL) 60 mg EVERY 6 HOURS IVP 09/22/17 00:00 10/22/17 00:00 09/22/17 05:45 Ondansetron HCl (Zofran) 4 mg Q6H PRN IVP Nausea & Vomiting 09/21/17 16:24 10/20/17 16:23 Oseltamivir Phosphate (Tamiflu) 75 mg Q12HR ORAL 09/21/17 21:00 09/25/17 13:59 09/22/17 08:52 Polyethylene Glycol (Miralax) 17 gm DAILYPRN PRN ORAL Constipation 09/21/17 16:25 10/21/17 16:24 Temazepam (Restoril) 15 mg HSPRN PRN ORAL Insomnia 09/21/17 16:25 09/28/17 16:24 MARVEL CARDONA M.D. Sep 22, 2017 10:24
[2017-09-22 12:00] VITALS: BP 109/70
--- NOTE | 2017-09-22 13:03 | Diagnostic Imaging Report ---
APPROVED REPORT CPT Code: 53920 Present Symptoms Shortness of breath BILATERAL: Imaging reveals a patent deep venous system bilaterally. There is no evidence of thrombus within the femoral, popliteal or tibial segments. The greater saphenous veins are also within normal limits. Doppler indicates normal spontaneous flow within these segments.
--- NOTE | 2017-09-22 15:17 | General Progress Note ---
Assessment/Plan Status: stable Assessment/Plan Covering IM for Dr Salguero: (1) Fever (2) Acute CHF (3) HIV (human immunodeficiency virus infection) (4) Cardiomyopathy (5) HypoNatremia Assessment/Plan chf resolved febrile now ID evaluation check electrolytes fever w/u. agree with current management Subjective Allergies: Coded Allergies: No Known Allergies (Unverified , 09/08/13) Objective Last 24 Hour Vital Signs Date Time Temp Pulse Resp B/P (MAP) Pulse Ox O2 Delivery O2 Flow Rate FiO2 09/22/17 12:00 96.5 71 21 109/70 93 96.5 09/22/17 08:52 102/64 09/22/17 08:51 93 102/64 09/22/17 08:21 95 Nasal Cannula 4.0 09/22/17 08:21 89 18 Nasal Cannula 4.0 09/22/17 08:21 Nasal Cannula 4.0 36 09/22/17 08:15 4.0 09/22/17 08:15 97.9 71 18 102/64 93 Nasal Cannula 97.9 93 09/22/17 08:00 Nasal Cannula 4.0 09/22/17 04:00 97.3 66 19 103/67 98 Nasal Cannula 4.0 97.3 09/22/17 02:50 98.2 98.2 09/22/17 00:41 99.4 92 20 119/68 91 Nasal Cannula 4.0 99.4 09/21/17 21:52 99.5 09/21/17 20:53 85 126/77 09/21/17 20:53 100.7 09/21/17 20:37 85 18 95 Simple Mask 5.0 09/21/17 20:00 100.7 92 20 126/77 93 Nasal Cannula 4.0 100.7 09/21/17 19:53 Nasal Cannula 4.0 09/21/17 19:53 92 18 94 Nasal Cannula 4.0 09/21/17 19:53 94 Nasal Cannula 4.0 09/21/17 19:52 92 18 Nasal Cannula 4.0 09/21/17 16:05 98.4 87 20 114/67 95 98.4 Intake and Output 09/21/17 09/22/17 19:00 07:00 Intake Total 120 ml Balance 120 ml Intake Oral 120 ml # Voids 2 # Bowel Movements 1 Laboratory Tests 09/21/17 16:30: Urine Color Yellow, Urine Appearance Clear, Urine pH 5, Urine Specific [place] 1.020, Urine Protein 2+H, Urine Glucose (UA) Negative, Urine Ketones Negative, Urine Occult Blood 1+H, Urine Nitrite Negative, Urine Bilirubin Negative, Urine Urobilinogen Normal, Urine Leukocyte Esterase 1+H, Urine RBC 0-2H, Urine WBC 0-2 , Urine Squamous Epithelial Cells None, Urine Bacteria Occasional 09/22/17 06:20: White Blood Count [Pending], Lymphocytes [Pending], Troponin I 0.017, C- Reactive Protein, Quantitative 7.0H, Percent CD3 Cells [Pending], Absolute CD3 Count [Pending], Percent CD4 Cells [Pending], Absolute CD4 Count [Pending], T- Lymphocyte CD4/CD8 Ratio [Pending], Percent CD8 Cells [Pending], Absolute CD8 Count [Pending] Height (Feet): 5 Height (Inches): 11.00 Weight (Pounds): 209 Bryan Munguia MD Sep 22, 2017 15:16
[2017-09-22 16:00] VITALS: BP 109/72
[2017-09-22] MEDS ORDERED: NS 275ml ONE (18:32)
[2017-09-22] MEDS ORDERED: Tubing IV Secondary IV ONE (18:32)
[2017-09-22] MEDS ORDERED: D5W 275ml ONE (18:32)
--- NOTE | 2017-09-22 20:09 | Cardiology Report ---
APPROVED REPORT EXAM: Two-dimensional and M-mode echocardiogram with Doppler and color Doppler. INDICATION Left Ventricular Function M-Mode DIMENSIONS IVSd1.1 (0.7-1.1cm)Left Atrium (MM)4.4 (1.6-4.0cm) LVDd5.4 (3.5-5.6cm)Aortic Root3.6 (2.0-3.7cm) PWd1.1 (0.7-1.1cm)Aortic Cusp Exc.2.0 (1.5-2.0cm) LVDs4.2 (2.5-4.0cm) PWs1.6 cm Mild left ventricular enlargement by 2D. Left ventricular ejection fraction estimated to be 45-50%. No evidence of left ventricular hypertrophy. Anterior Echo-free space, may be due to pericardial fat or effusion. All other cardiac chamber sizes are within normal limits. Normal appearing aortic, mitral, pulmonic and tricuspid valves. Mild mitral annulus and aortic root calcification. IVC measures at 1.8 with partial physiologic collapse suggestive of increased RA pressure. A color flow and spectral Doppler study was performed and revealed: Mild aortic regurgitation. Trace mitral regurgitation. Mitral diastolic velocities suggest mild left ventricular dysfunction (Grade I ). Trace tricuspid regurgitation. Tricuspid systolic velocities suggests peak right ventricular systolic pressure of 16 mmHg. No pulmonic regurgitation present.
--- NOTE | 2017-09-22 20:14 | Cardiology Report ---
APPROVED REPORT EKG Measurement Heart [id number] [id number] [id number] Sinus tachycardia Possible Left atrial enlargement Left axis deviation Septal infarct, age undetermined Abnormal ECG
[2017-09-23] MEDS ORDERED: cefTRIAXone 1 GM in NS 55 ML IVPB SCH (01:00)
--- NOTE | 2017-09-23 16:29 | Discharge Summary ---
Discharge Summary Hospital Course Date of Admission Sep 20, 2017 at 02:00 Date of Discharge Sep 22, 2017 at 18:33 Admitting Diagnosis acute chf HPI Fish Turner is a 47 year old male who was admitted on Sep 20, 2017 at 02:00 for Acute Congestive Heart Failure Hospital Course [id number] Discharge Discharge Disposition Patient left AMA Discharge Diagnoses: Ann Marie Thomson NP Sep 23, 2017 16:28
--- NOTE | 2017-09-24 10:45 | Discharge Summary 2 SIG ---
DATE OF ADMISSION: 09/20/2017 DATE OF DISCHARGE: 09/22/2017 PERSONAL FITNESS MANAGER: 1. Jerrod Sanders M.D. 2. Tramaine Wick M.D. BRIEF HOSPITAL COURSE: The patient is a 47-year-old male with history of severe diastolic heart disease, presented to ED complaining of shortness of breath and chest pain as well as midsternal pain. He is homeless for a while and had not had any medications. He has history of CHF and has not been taking his diuretics, history of HIV and hypertension. On evaluation at ED, blood work showed elevated BNP 368. Troponin was negative. Chest x-ray showed pulmonary congestion. He was given oxygenation and Lasix and was admitted for acute congestive heart failure exacerbation. He underwent cardiac evaluation. Echocardiogram showed EF 45% to 50% with mild aortic regurgitation, trace mitral regurgitation, and trace tricuspid regurgitation. RVSP 16. There was no significant valvular dysfunction. EKG was basically sinus rhythm with leftward axis. The patient had evidence of congestive heart failure and improved being on combination of LELAND inhibitor, beta-vicente, and diuretics. He was given lisinopril, Coreg, and Lasix. He was advised sodium and fluid restriction. He has HIV of unknown CD4 count and had been noncompliant with his medication. CD4 count was checked and was 101. He had urine toxicology that was positive for marijuana. Blood culture did not isolate any growth. Sputum culture with normal respiratory maria elena and influenza screen were negative. He was given Rocephin and Zithromax. Tamiflu was discontinued. He was febrile, temperature 102, however, eventually defervesced. There was no leukocytosis noted. Full treatment was not carried out as he signed out against medical advice. FINAL DIAGNOSES: 1. Acute diastolic congestive heart failure exacerbation. 2. Human immunodeficiency virus. 3. Cardiomyopathy. 4. Hyponatremia. 5. Fever. 6. Community-acquired pneumonia. 7. Hypertension. 8. Anxiety-depression. 9. Noncompliance. DISPOSITION: The patient left AMA. Bryan Munguia M.D. I have been assigned to dictate discharge summary on this account and I was not involved in the patient's management. Ann Marie Thomson N.P. DR: ADA JOB#: [id number] CC: MARY
== END 2017-09-22 18:33 | disposition left against medical advice (07) | DRG 194 ==
LOC: EMR 09-20 00:05 → 2E 09-20 02:00 → EDBEDREQ 09-20 03:01 → 4W 09-21 16:09
DX: I11.0 Hypertensive heart disease with heart failure (principal); J18.9 Pneumonia, unspecified organism; B20 Human immunodeficiency virus [HIV] disease; E87.1 Hypo-osmolality and hyponatremia; I50.33 Acute on chronic diastolic (congestive) heart failure; I42.9 Cardiomyopathy, unspecified; Z91.14 Patient's other noncompliance with medication regimen; Z59.0 Homelessness; F41.8 Other specified anxiety disorders; I35.1 Nonrheumatic aortic (valve) insufficiency
CPT/HCPCS: 36415; 71045; 80053; 80069; 80307; 81001; 82550; 82553; 82962; 83880; 84484; 85025; 86140; 86360; 86710; 87040; 87070; 87086; 87205; 93005; 93306; 93970; 94640; 94664; 94760; 99285; J2405; J7620

== ENCOUNTER 2017-11-02 11:30 | Inpatient (IN) | payer OTHER ==
[~2017-11-02] VITALS: Ht 165.1 cm; Wt 81.6 kg
[2017-11-02] MEDS ORDERED: Lidocaine 2% Visc 15ml soln ORAL ONE (12:15)
[2017-11-02] MEDS ORDERED: Ipratropium 0.02% Inh Soln 2.5ml UD HHN ONE (12:15)
[2017-11-02] MEDS ORDERED: Morphine Sulfate 4mg/ml Inj IVP ONE (12:15)
[2017-11-02] MEDS ORDERED: Albuterol ud Inhalation HHN ONE (12:15)
[2017-11-02] MEDS ORDERED: Mylanta II UD 30ml ORAL ONE (12:15)
--- NOTE | 2017-11-02 12:19 | Emergency Room Report ---
History of Present Illness General Chief Complaint: Skin Rash/Abscess Source: Patient, Medical Record Present Illness HPI The patient states he was recently discharged from [facility] after a two-week hospitalization for pneumonia. He states he's been unable to eat or swallow for 5 days because of pain in his mouth and throat. He also has pain in his chest. The pain is not radiating. It's constant and he states it' s 10/10. Burning pain. The pain is not exertional or positional. He states he 's been feeling weak because he is unable to take his medications. The patient is no longer coughing at this time. He supposed also be on Bactrim but is unable to to take this because of the pain in swallowing. The patient is also complaining about a rash.. This began 3 days ago developed on his arms and spread also on his legs. He denies any itching there. He's never had a rash like this before. He received antibiotics also in the hospital. He states his face and scalp were also red. Denies any throat swelling. He states he was not discharged on antivirals. He was supposed to have a follow -up appointment somewhere to arrange for treatment of his HIV. He does not know his CD4 or viral load. No NVD, dysuria, joint pain, headache. + anxiety. He states he has been treated for CHF in the past. Allergies: Coded Allergies: No Known Allergies (Unverified , 09/08/13) Patient History Past Medical History: see triage record Social History: Denies: smoking, alcohol use, drug use Social History Narrative Living in a dormitory type situation in [place]. He feels safe where he lives. Reviewed Nursing Documentation: PMH: Agreed; PSxH: Agreed Nursing Documentation-PMH Past Medical History: No History, Except For Hx Cardiac Problems: Yes - CHF Hx Hypertension: Yes Hx Pacemaker: No - HIV+ Hx Cancer: No Hx Gastrointestinal Problems: Yes Hx Neurological Problems: No Review of Systems All Other Systems: negative except mentioned in HPI Physical Exam Vital Signs Date Time Temp Pulse Resp B/P (MAP) Pulse Ox O2 Delivery O2 Flow Rate FiO2 11/02/17 11:38 98.0 92 18 141/95 95 Room Air 98.1 Sp02 EP Interpretation: reviewed, normal General Appearance: well appearing, GCS 15, mild distress Head: normocephalic Eyes: bilateral eye normal inspection, bilateral eye PERRL, bilateral eye EOMI ENT: moist mucus membranes, other - Aphthous ulcers throughout mouth Neck: supple Respiratory: wheezing - minimal, expiration Cardiovascular #1: regular rate, rhythm Cardiovascular #2: 2+ radial (R) Gastrointestinal: normal inspection, normal bowel sounds, non tender, no mass, non-distended Musculoskeletal: back normal, gait/station normal, normal range of motion Neurologic: alert, oriented x3, grossly normal Psychiatric: anxious Skin: warm/dry, rash - maculopapular rash on extrem with min erythroderma of face Medical Decision Making Diagnostic Impression: Primary Impression: Chest pain Qualified Codes: R07.89 - Other chest pain Additional Impressions: Aphthous stomatitis Esophagitis Bronchospasm Rash and other nonspecific skin eruption HIV (human immunodeficiency virus infection) ER Course The patient presents with chest pain and inability to swallow with history of immune compromise and sores in his mouth. Differential is broad including pneumonia, bronchitis, thrush, herpes, malignancy, esophagitis amongst others. We need to exclude cardiac cause also. The patient does exhibit bronchospasm. He'll be evaluated with EKG, chest x-ray and labs. He'll be treated with oral pain medication as well as IV analgesia. Also he'll be receiving breathing treatments. The rash does not appear scabetic. This could be a reaction to Bactrim. The patient is somewhat improved after initial treatment. Laboratory is significant for normal white count. Pyuria is present and Rocephin is begun. EKG shows no acute change. Chest x-ray is unremarkable. Patient is stating the pain is starting to come back but feels much better. Due to the fact that he has significant lesions in his mouth and throat, esophagitis is suspected. He's also immune suppressed at this time and needs evaluation for proper antiviral treatment. The patient is admitted to the hospital under the care of Dr Wesley. Laboratory Tests Test 11/02/17 12:30 11/02/17 13:22 White Blood Count 7.6 K/UL (4.8-10.8) Red Blood Count 5.21 M/UL (4.70-6.10) Hemoglobin 14.4 G/DL (14.2-18.0) Hematocrit 43.5 % (42.0-52.0) Mean Corpuscular Volume 84 FL (80-99) Mean Corpuscular Hemoglobin 27.6 PG (27.0-31.0) Mean Corpuscular Hemoglobin Concent 33.0 G/DL (32.0-36.0) Red Cell Distribution Width 14.5 % (11.6-14.8) Platelet Count 228 K/UL (150-450) Mean Platelet Volume 8.6 FL (6.5-10.1) Neutrophils (%) (Auto) 58.6 % (45.0-75.0) Lymphocytes (%) (Auto) 28.8 % (20.0-45.0) Monocytes (%) (Auto) 9.5 % (1.0-10.0) Eosinophils (%) (Auto) 2.0 % (0.0-3.0) Basophils (%) (Auto) 1.1 % (0.0-2.0) Prothrombin Time 10.5 SEC (9.30-11.50) Prothrombin Time INR 1.0 (0.9-1.1) PTT 28 SEC (23-33) Sodium Level 135 MMOL/L (136-145) L Potassium Level 4.5 MMOL/L (3.5-5.1) Chloride Level 100 MMOL/L (98-107) Carbon Dioxide Level 22 MMOL/L (21-32) Anion Gap 13 mmol/L (5-15) Blood Urea Nitrogen 21 mg/dL (7-18) H Creatinine 1.4 MG/DL (0.55-1.30) H Estimate Glomerular Filtration Rate 54.3 mL/min (>60) Glucose Level 89 MG/DL (74-106) Lactic Acid Level 1.40 mmol/L (0.66-2.22) Calcium Level 9.4 MG/DL (8.5-10.1) Total Bilirubin 0.5 MG/DL (0.2-1.0) Aspartate Amino Transferase (AST) 50 U/L (15-37) H Alanine Aminotransferase (ALT) 59 U/L (12-78) Alkaline Phosphatase 74 U/L (46-116) Total Creatine Kinase 29 U/L (26-308) Troponin I 0.000 ng/mL (0.000-0.056) Pro-B-Type Natriuretic Peptide 92 pg/mL (0-125) Total Protein 8.4 G/DL (6.4-8.2) H Albumin 3.3 G/DL (3.4-5.0) L Globulin 5.1 g/dL Albumin/Globulin Ratio 0.6 (1.0-2.7) L Lipase 125 U/L (73-393) Urine Color Yellow Urine Appearance Cloudy Urine pH 5 (4.5-8.0) Urine Specific [place] 1.025 (1.005-1.035) Urine Protein 3+ (NEGATIVE) H Urine Glucose (UA) Negative (NEGATIVE) Urine Ketones 3+ (NEGATIVE) H Urine Occult Blood 2+ (NEGATIVE) H Urine Nitrite Negative (NEGATIVE) Urine Bilirubin 1+ (NEGATIVE) H Urine Ictotest Positive Urine Urobilinogen 1 MG/DL (0.0-1.0) H Urine Leukocyte Esterase 1+ (NEGATIVE) H Urine RBC 2-4 /HPF (0 - 0) H Urine WBC 5-10 /HPF (0 - 0) H Urine Squamous Epithelial Cells Few /LPF (NONE/OCC) Urine Bacteria Few /HPF (NONE) Urine Granular Casts 5-10 /LPF (NONE) H Urine Opiates Screen Pending Urine Barbiturates Screen Pending Phencyclidine (PCP) Screen Pending Urine Amphetamines Screen Pending Urine Benzodiazepines Screen Pending Urine Cocaine Screen Pending Urine Marijuana (THC) Screen Pending EKG Diagnostic Results Rate: normal Rhythm: NSR ST Segments: no acute changes Rhythm Strip Diag. Results EP Interpretation: yes Rhythm: NSR, no PVC's, no ectopy Chest X-Ray Diagnostic Results Chest X-Ray Diagnostic Results : Chest X-Ray Ordered: Yes # of Views/Limited/Complete: 1 View Indication: Chest Pain Interpretation: no consolidation, no effusion, no pneumothorax Impression: Other Electronically Signed by: Electronically signed by Sai Wright MD Last Vital Signs Date Time Temp Pulse Resp B/P (MAP) Pulse Ox O2 Delivery O2 Flow Rate FiO2 11/02/17 14:53 98.6 99 22 131/93 96 Room Air 98.6 11/02/17 13:39 21 Status: improved Disposition: ADMITTED INPATIENT Condition: Serious Referrals: [facility],REFERRING (PCP) Sai Wright M.D. Nov 02, 2017 12:19
[2017-11-02 12:55] LABS: BASOPHILS % (AUTO) 1.1 % (0.0-2.0); HEMATOCRIT 43.5 % (42.0-52.0); HEMOGLOBIN 14.4 G/DL (14.2-18.0); LYMPHOCYTES % (AUTO) 28.8 % (20.0-45.0); MEAN CORPUSCULAR VOLUME 84 FL (80-99); MONOCYTES % (AUTO) 9.5 % (1.0-10.0); NEUTROPHILS % (AUTO) 58.6 % (45.0-75.0); PLATELET COUNT 228 K/UL (150-450); RED BLOOD COUNT 5.21 M/UL (4.70-6.10); RED CELL DISTRIBUTION WIDTH 14.5 % (11.6-14.8); WHITE BLOOD COUNT 7.6 K/UL (4.8-10.8)
[2017-11-02 13:06] LABS: ANION GAP 13 mmol/L (5-15); BLOOD UREA NITROGEN 21 mg/dL (7-18); CALCIUM 9.4 MG/DL (8.5-10.1); CARBON DIOXIDE 22 MMOL/L (21-32); CHLORIDE 100 MMOL/L (98-107); CREATININE 1.4 MG/DL (0.55-1.30); POTASSIUM 4.5 MMOL/L (3.5-5.1); SODIUM 135 MMOL/L (136-145)
[2017-11-02 13:17] LABS: ALANINE AMINOTRANSFERASE 59 U/L (12-78); ALBUMIN 3.3 G/DL (3.4-5.0); ALBUMIN/GLOBULIN RATIO 0.6 (1.0-2.7); ALKALINE PHOSPHATASE 74 U/L (46-116); ASPARTATE AMINO TRANSFERASE 50 U/L (15-37); BILIRUBIN,TOTAL 0.5 MG/DL (0.2-1.0); CREATINE KINASE 29 U/L (26-308)
[2017-11-02 13:39] VITALS: BP 135/87
[2017-11-02 13:47] LABS: APPEARANCE,URINE CLOUDY; BILIRUBIN, URINE 1+ (NEGATIVE); GLUCOSE, URINE (UA) NEGATIVE (NEGATIVE); KETONES,URINE 3+ (NEGATIVE); LEUKOCYTE ESTERASE ,URINE 1+ (NEGATIVE); NITRITE,URINE NEGATIVE (NEGATIVE); PH,URINE 5 (4.5-8.0); PROTEIN,URINE 3+ (NEGATIVE); UROBILINOGEN,URINE 1 MG/DL (0.0-1.0)
[2017-11-02 13:52] LABS: COLOR,URINE YELLOW
[2017-11-02] MEDS ORDERED: cefTRIAXone 1 GM in D5W 55 ML IVPB ONE (14:45)
[2017-11-02 14:53] VITALS: BP 131/93
--- NOTE | 2017-11-02 14:53 | Diagnostic Imaging Report ---
Indication: Chest pain, cough Technique: One view of the chest Comparison: 09/21/2017 Findings: Lungs and pleural spaces are clear. Heart size is normal. Previously demonstrated infiltrates or edema are no longer evident Impression: No acute process
[2017-11-02] MEDS ORDERED: Miralax 17gm pkt ORAL PRN (15:00)
[2017-11-02] MEDS ORDERED: Morphine Sulfate 2mg/ml Inj IVP PRN (15:00)
[2017-11-02] MEDS ORDERED: Nitroglycerin Subl 0.4mg tab SL PRN (15:00)
--- NOTE | 2017-11-02 15:27 | GI Initial Consult Note ---
History of Present Illness General Date patient seen: Nov 02, 2017 Time patient seen: 15:14 Reason for Hospitalization: Skin Rash/Abscess Referring physician: ENEDELIA PEDROZA Reason for Consultation: DYSPHAGIA, GERD Present Illness HPI Patient presents from home c/o of chest pain, esophageal burning and decrease oral intake. In addition, has rashes to the head/face, trunk, extremities with no itching. GI consulted for possible dysphagia, epigastric pain. Pt seen, awake A&Ox4 NAD with no active s/sx of N/V. C/o of epigastric pain, tender to touch. Has taken OTC acid reducers with little to no effect. Presents today with mild AST elevation and renal insufficiency. Utox pending. Thrush noted. No history of endoscopy / colonoscopy. Home Meds Active Scripts Potassium Chloride (Klor-Con M20) 20 Meq Tabcr, 40 MEQ ORAL DAILY, #30 TAB Prov:Marco A Gilbert MD 10/07/13 Metolazone (Metolazone) 2.5 Mg Tab, 2.5 MG ORAL DAILY@0845, #30 TAB Prov:Marco A Gilbert MD 10/07/13 Lisinopril (LISINOPRIL*) 20 Mg Tablet, 40 MG ORAL DAILY, #30 TAB 3 Refills Prov:Marco A Gilbert MD 10/07/13 Reported Medications No Known Medications* (NKM - No Known Medications*) ., 0 ., 0 Refills 09/19/17 Ferrous Sulfate (FERROUS SULFATE) 325 Mg Tablet., 325 MG ORAL TID, TAB 0 Refills 09/27/13 Aspirin* (ASPIR 81*) 81 Mg Tablet.dr, 81 MG ORAL DAILY, TAB 09/27/13 Furosemide* (LASIX*) 40 Mg Tablet, 40 MG ORAL TWICE A DAY, TAB 0 Refills 09/27/13 Metoprolol Tartrate* (METOPROLOL TARTRATE*) 50 Mg Tablet, 50 MG ORAL BID, TAB 09/27/13 Omeprazole (OMEPRAZOLE) 20 Mg Capsule.dr, 20 MG ORAL DAILY, CAP 09/27/13 Med list reviewed/reconciled: Yes Allergies: Coded Allergies: No Known Allergies (Unverified , 09/08/13) Patient History History Provided By: Patient, Medical Record PM Narrative Past Medical History: No History, Except For Hx Cardiac Problems: Yes - CHF Hx Hypertension: Yes Hx Pacemaker: No - HIV+ Hx Cancer: No Hx Gastrointestinal Problems: Yes Hx Neurological Problems: No Social History Narrative utox pending Review of Systems All Other Systems: negative except mentioned in HPI Physical Exam Vital Signs Date Time Temp Pulse Resp B/P (MAP) Pulse Ox O2 Delivery O2 Flow Rate FiO2 11/02/17 11:38 98.0 92 18 141/95 95 Room Air 98.1 11/02/17 12:20 21 Sp02 EP Interpretation: reviewed, normal Labs Laboratory Tests Test 11/02/17 12:30 11/02/17 13:22 White Blood Count 7.6 K/UL (4.8-10.8) Red Blood Count 5.21 M/UL (4.70-6.10) Hemoglobin 14.4 G/DL (14.2-18.0) Hematocrit 43.5 % (42.0-52.0) Mean Corpuscular Volume 84 FL (80-99) Mean Corpuscular Hemoglobin 27.6 PG (27.0-31.0) Mean Corpuscular Hemoglobin Concent 33.0 G/DL (32.0-36.0) Red Cell Distribution Width 14.5 % (11.6-14.8) Platelet Count 228 K/UL (150-450) Mean Platelet Volume 8.6 FL (6.5-10.1) Neutrophils (%) (Auto) 58.6 % (45.0-75.0) Lymphocytes (%) (Auto) 28.8 % (20.0-45.0) Monocytes (%) (Auto) 9.5 % (1.0-10.0) Eosinophils (%) (Auto) 2.0 % (0.0-3.0) Basophils (%) (Auto) 1.1 % (0.0-2.0) Prothrombin Time 10.5 SEC (9.30-11.50) Prothromb Time International Ratio 1.0 (0.9-1.1) Activated Partial Thromboplast Time 28 SEC (23-33) Sodium Level 135 MMOL/L (136-145) L Potassium Level 4.5 MMOL/L (3.5-5.1) Chloride Level 100 MMOL/L (98-107) Carbon Dioxide Level 22 MMOL/L (21-32) Anion Gap 13 mmol/L (5-15) Blood Urea Nitrogen 21 mg/dL (7-18) H Creatinine 1.4 MG/DL (0.55-1.30) H Estimat Glomerular Filtration Rate 54.3 mL/min (>60) Glucose Level 89 MG/DL (74-106) Lactic Acid Level 1.40 mmol/L (0.66-2.22) Calcium Level 9.4 MG/DL (8.5-10.1) Total Bilirubin 0.5 MG/DL (0.2-1.0) Aspartate Amino Transf (AST/SGOT) 50 U/L (15-37) H Alanine Aminotransferase (ALT/SGPT) 59 U/L (12-78) Alkaline Phosphatase 74 U/L (46-116) Total Creatine Kinase 29 U/L (26-308) Troponin I 0.000 ng/mL (0.000-0.056) Pro-B-Type Natriuretic Peptide 92 pg/mL (0-125) Total Protein 8.4 G/DL (6.4-8.2) H Albumin 3.3 G/DL (3.4-5.0) L Globulin 5.1 g/dL Albumin/Globulin Ratio 0.6 (1.0-2.7) L Lipase 125 U/L (73-393) Urine Color Yellow Urine Appearance Cloudy Urine pH 5 (4.5-8.0) Urine Specific [place] 1.025 (1.005-1.035) Urine Protein 3+ (NEGATIVE) H Urine Glucose (UA) Negative (NEGATIVE) Urine Ketones 3+ (NEGATIVE) H Urine Occult Blood 2+ (NEGATIVE) H Urine Nitrite Negative (NEGATIVE) Urine Bilirubin 1+ (NEGATIVE) H Urine Ictotest Positive Urine Urobilinogen 1 MG/DL (0.0-1.0) H Urine Leukocyte Esterase 1+ (NEGATIVE) H Urine RBC 2-4 /HPF (0 - 0) H Urine WBC 5-10 /HPF (0 - 0) H Urine Squamous Epithelial Cells Few /LPF (NONE/OCC) Urine Bacteria Few /HPF (NONE) Urine Granular Casts 5-10 /LPF (NONE) H Urine Opiates Screen Pending Urine Barbiturates Screen Pending Phencyclidine (PCP) Screen Pending Urine Amphetamines Screen Pending Urine Benzodiazepines Screen Pending Urine Cocaine Screen Pending Urine Marijuana (THC) Screen Pending General Appearance: well appearing, no apparent distress, alert Head: normocephalic EENT: PERRL/EOMI, normal ENT inspection Neck: supple Respiratory: normal breath sounds, no respiratory distress Cardiovascular: normal rate Gastrointestinal: normal inspection, non tender, soft, normal bowel sounds, non -distended Rectal: deferred Genitourinary: deferred Musculoskeletal: normal inspection, back normal Neurologic: normal inspection, alert, oriented x3, responsive Psychiatric: normal inspection, judgement/insight normal, memory normal Skin: normal inspection, normal color, no rash, warm/dry, palpation normal, well hydrated Lymphatic: normal inspection, no adenopathy Current Medications Current Medications Medications (Trade) Dose Ordered Sig/Beau Route PRN Reason Start Time Stop Time Status Last Admin Dose Admin Acetaminophen (Tylenol) 650 mg Q4H PRN ORAL fever 11/02/17 15:00 12/02/17 14:59 UNV Al Hydroxide/Mg Hydroxide (Mylanta II) 30 ml Q6H PRN ORAL dyspepsia 11/02/17 15:00 12/02/17 14:59 UNV Ceftriaxone Sodium 1 gm/ Dextrose 55 ml @ 110 mls/hr ONCE ONCE IVPB 11/02/17 14:45 11/02/17 15:14 11/02/17 14:43 Dextrose (Dextrose 50%) STAT PRN IV Hypoglycemia 11/02/17 15:00 12/02/17 14:59 UNV Dextrose/Sodium Chloride 1,000 ml @ 75 mls/hr [id number] IV 11/02/17 14:50 12/02/17 14:49 UNV Diphenhydramine HCl (Benadryl) 25 mg Q6H PRN ORAL Itching/Pruritis 11/02/17 15:00 12/02/17 14:59 UNV Heparin Sodium (Porcine) (Heparin 5000 units/ml) 5,000 units EVERY 12 HOURS SUBQ 11/02/17 21:00 12/02/17 20:59 UNV Lisinopril (Prinivil) 40 mg DAILY ORAL 11/03/17 09:00 12/03/17 08:59 UNV Metoprolol Tartrate (Lopressor) 50 mg BID ORAL 11/02/17 18:00 12/02/17 17:59 UNV Morphine Sulfate (Morphine Sulfate) 2 mg EVERY 4 HOURS PRN IVP severe Pain (Pain Scale 7-10) 11/02/17 15:00 11/09/17 14:59 UNV Nitroglycerin (Ntg) 0.4 mg Q5M X 3 DOSES PRN SL Prn Chest Pain 11/02/17 15:00 12/02/17 14:59 UNV Ondansetron HCl (Zofran) 4 mg Q6H PRN IVP Nausea & Vomiting 11/02/17 15:00 12/02/17 14:59 UNV Pantoprazole (Protonix) 40 mg DAILY IVP 11/03/17 09:00 12/03/17 08:59 UNV Polyethylene Glycol (Miralax) 17 gm HSPRN PRN ORAL Constipation 11/02/17 15:00 12/02/17 14:59 UNV Sodium Chloride 1,000 ml @ 300 mls/hr Q3H20M IV 11/02/17 12:15 12/02/17 12:14 11/02/17 13:32 Temazepam (Restoril) 15 mg HSPRN PRN ORAL Insomnia 11/02/17 15:00 11/09/17 14:59 UNV GI: Plan Problems: (1) Thrush (2) Renal insufficiency (3) GERD (gastroesophageal reflux disease) (4) HIV (human immunodeficiency virus infection) (5) EF of 20% (6) Esophagitis Plan maintain NPO + IVFs >> 2L fluid restriction given hx of CHF ST evaluation, will consider endoscopy pending work up ppi + H2B trend AST nystatin fu utox fu labs Discussed with Dr. Coe. Thank you for this patient referral, we will follow. Ramonita Villa N.P. Nov 02, 2017 15:27
[2017-11-02 15:41] VITALS: BP 151/82
[2017-11-02] MEDS: D5 1/2NS 1,000 ML IV SCH (16:06)
[2017-11-02] MEDS: Metoprolol Tartrate 50mg tab ORAL SCH (17:07)
[2017-11-02] MEDS: Morphine Sulfate 4mg/ml Inj IVP PRN ×2 (17:07→22:02)
[2017-11-02] MEDS: Nystatin Susp 500,000 units/5ml ORAL SCH ×2 (17:24→21:37)
[2017-11-02 20:00] VITALS: BP 140/89
--- NOTE | 2017-11-02 20:06 | History and Physical ---
History of Present Illness General Date patient seen: Nov 02, 2017 Reason for Hospitalization: Skin Rash/Abscess Present Illness HPI 47 with hx of CHF, HIV presented to [facility] because he is unable to eat or swallow for 5 days because of pain in his mouth and throat. He states he's been feeling weak because he is unable to take his medications. He is admitted for further evaluations. Allergies: Coded Allergies: No Known Allergies (Unverified , 09/08/13) Medication History Scheduled Aspirin* (Aspir 81*), 81 MG ORAL DAILY, (Reported) Ferrous Sulfate (Ferrous Sulfate), 325 MG ORAL TID, (Reported) Furosemide* (Lasix*), 40 MG ORAL TWICE A DAY, (Reported) Lisinopril (Lisinopril*), 40 MG ORAL DAILY Metolazone (Metolazone), 2.5 MG ORAL DAILY@0845 Metoprolol Tartrate* (Metoprolol Tartrate*), 50 MG ORAL BID, (Reported) No Known Medications* (NKM - No Known Medications*), 0 ., (Reported) Omeprazole (Omeprazole), 20 MG ORAL DAILY, (Reported) Potassium Chloride (Klor-Con M20), 40 MEQ ORAL DAILY Patient History Healthcare decision maker Resuscitation status Full Code Advanced Directive on File Past Medical/Surgical History Past Medical/Surgical History: (1) Cardiomyopathy (2) HIV (human immunodeficiency virus infection) (3) EF of 20% Review of Systems All Other Systems: negative except mentioned in HPI Physical Exam General Appearance: WD/WN Lines, tubes and drains: peripheral, PICC HEENT: normocephalic, atraumatic Neck: non-tender, supple Respiratory/Chest: chest wall non-tender, lungs clear Breasts: no masses Cardiovascular/Chest: normal peripheral pulses, regular rhythm Abdomen: normal bowel sounds, non tender Genitourinary/Rectal: normal genital exam Extremities: normal range of motion Skin Exam: normal pigmentation 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 Last 24 Hour Vital Signs Date Time Temp Pulse Resp B/P (MAP) Pulse Ox O2 Delivery O2 Flow Rate FiO2 11/02/17 17:37 98.1 11/02/17 17:07 98.1 11/02/17 17:07 80 151/82 11/02/17 15:41 98.1 80 18 151/82 95 98.1 11/02/17 14:53 98.4 99 22 131/93 96 Room Air 21 209.5 11/02/17 14:53 98.6 99 22 131/93 96 Room Air 98.6 11/02/17 13:39 98.3 95 22 135/87 95 Room Air 21 98.3 11/02/17 12:33 91 23 100 Room Air 21 11/02/17 12:20 72 18 Room Air 21 11/02/17 12:20 72 18 100 Room Air 21 11/02/17 11:38 98.0 92 18 141/95 95 Room Air 98.1 Laboratory Tests Test 11/02/17 12:30 11/02/17 13:22 White Blood Count 7.6 K/UL (4.8-10.8) Red Blood Count 5.21 M/UL (4.70-6.10) Hemoglobin 14.4 G/DL (14.2-18.0) Hematocrit 43.5 % (42.0-52.0) Mean Corpuscular Volume 84 FL (80-99) Mean Corpuscular Hemoglobin 27.6 PG (27.0-31.0) Mean Corpuscular Hemoglobin Concent 33.0 G/DL (32.0-36.0) Red Cell Distribution Width 14.5 % (11.6-14.8) Platelet Count 228 K/UL (150-450) Mean Platelet Volume 8.6 FL (6.5-10.1) Neutrophils (%) (Auto) 58.6 % (45.0-75.0) Lymphocytes (%) (Auto) 28.8 % (20.0-45.0) Monocytes (%) (Auto) 9.5 % (1.0-10.0) Eosinophils (%) (Auto) 2.0 % (0.0-3.0) Basophils (%) (Auto) 1.1 % (0.0-2.0) Prothrombin Time 10.5 SEC (9.30-11.50) Prothromb Time International Ratio 1.0 (0.9-1.1) Activated Partial Thromboplast Time 28 SEC (23-33) Sodium Level 135 MMOL/L (136-145) L Potassium Level 4.5 MMOL/L (3.5-5.1) Chloride Level 100 MMOL/L (98-107) Carbon Dioxide Level 22 MMOL/L (21-32) Anion Gap 13 mmol/L (5-15) Blood Urea Nitrogen 21 mg/dL (7-18) H Creatinine 1.4 MG/DL (0.55-1.30) H Estimat Glomerular Filtration Rate 54.3 mL/min (>60) Glucose Level 89 MG/DL (74-106) Lactic Acid Level 1.40 mmol/L (0.66-2.22) Calcium Level 9.4 MG/DL (8.5-10.1) Total Bilirubin 0.5 MG/DL (0.2-1.0) Aspartate Amino Transf (AST/SGOT) 50 U/L (15-37) H Alanine Aminotransferase (ALT/SGPT) 59 U/L (12-78) Alkaline Phosphatase 74 U/L (46-116) Total Creatine Kinase 29 U/L (26-308) Troponin I 0.000 ng/mL (0.000-0.056) Pro-B-Type Natriuretic Peptide 92 pg/mL (0-125) Total Protein 8.4 G/DL (6.4-8.2) H Albumin 3.3 G/DL (3.4-5.0) L Globulin 5.1 g/dL Albumin/Globulin Ratio 0.6 (1.0-2.7) L Lipase 125 U/L (73-393) Urine Color Yellow Urine Appearance Cloudy Urine pH 5 (4.5-8.0) Urine Specific [place] 1.025 (1.005-1.035) Urine Protein 3+ (NEGATIVE) H Urine Glucose (UA) Negative (NEGATIVE) Urine Ketones 3+ (NEGATIVE) H Urine Occult Blood 2+ (NEGATIVE) H Urine Nitrite Negative (NEGATIVE) Urine Bilirubin 1+ (NEGATIVE) H Urine Ictotest Positive Urine Urobilinogen 1 MG/DL (0.0-1.0) H Urine Leukocyte Esterase 1+ (NEGATIVE) H Urine RBC 2-4 /HPF (0 - 0) H Urine WBC 5-10 /HPF (0 - 0) H Urine Squamous Epithelial Cells Few /LPF (NONE/OCC) Urine Bacteria Few /HPF (NONE) Urine Granular Casts 5-10 /LPF (NONE) H Urine Opiates Screen Positive (NEGATIVE) H Urine Barbiturates Screen Negative (NEGATIVE) Phencyclidine (PCP) Screen Negative (NEGATIVE) Urine Amphetamines Screen Negative (NEGATIVE) Urine Benzodiazepines Screen Negative (NEGATIVE) Urine Cocaine Screen Negative (NEGATIVE) Urine Marijuana (THC) Screen Positive (NEGATIVE) H Height (Feet): 5 Height (Inches): 10.00 Weight (Pounds): 180 Medications Current Medications Medications (Trade) Dose Ordered Sig/Beau Route PRN Reason Start Time Stop Time Status Last Admin Dose Admin Acetaminophen (Tylenol) 650 mg Q4H PRN ORAL fever 11/02/17 15:00 12/02/17 14:59 Al Hydroxide/Mg Hydroxide (Mylanta II) 30 ml Q6H PRN ORAL dyspepsia 11/02/17 15:00 12/02/17 14:59 Dextrose (Dextrose 50%) 25 ml STAT PRN IV Hypoglycemia BS 60-69 11/02/17 15:00 12/02/17 14:59 Dextrose (Dextrose 50%) 50 ml STAT PRN IV Hypoglycemia BS<60 11/02/17 15:45 12/02/17 15:44 Dextrose/Sodium Chloride 1,000 ml @ 75 mls/hr [id number] IV 11/02/17 16:00 12/02/17 15:59 11/02/17 16:06 Diphenhydramine HCl (Benadryl) 25 mg Q6H PRN ORAL Itching/Pruritis 11/02/17 15:00 12/02/17 14:59 Famotidine (Pepcid I.v.) 20 mg QHS IVP 11/02/17 21:00 12/02/17 20:59 Heparin Sodium (Porcine) (Heparin 5000 units/ml) 5,000 units EVERY 12 HOURS SUBQ 11/02/17 21:00 12/02/17 20:59 Lisinopril (Prinivil) 40 mg DAILY ORAL 11/03/17 09:00 12/03/17 08:59 Metoprolol Tartrate (Lopressor) 50 mg BID ORAL 11/02/17 18:00 12/02/17 17:59 11/02/17 17:07 Morphine Sulfate (Morphine Sulfate) 2 mg EVERY 4 HOURS PRN IVP Severe Pain (Pain Scale 7-10) 11/02/17 16:00 11/09/17 15:59 11/02/17 17:07 Nitroglycerin (Ntg) 0.4 mg Q5M X 3 DOSES PRN SL Prn Chest Pain 11/02/17 15:00 12/02/17 14:59 Nystatin (Nystatin) 5 ml QID ORAL 11/02/17 18:00 11/09/17 17:59 11/02/17 17:24 Ondansetron HCl (Zofran) 4 mg Q6H PRN IVP Nausea & Vomiting 11/02/17 15:00 12/02/17 14:59 Pantoprazole (Protonix) 40 mg DAILY IVP 11/03/17 09:00 12/03/17 08:59 Polyethylene Glycol (Miralax) 17 gm HSPRN PRN ORAL Constipation 11/02/17 15:00 12/02/17 14:59 Temazepam (Restoril) 15 mg HSPRN PRN ORAL Insomnia 11/02/17 15:00 11/09/17 14:59 Assessment/Plan Problem List: (1) GERD (gastroesophageal reflux disease) ICD Codes: K21.9 - Gastro-esophageal reflux disease without esophagitis SNOMED: 804958718 (2) HIV (human immunodeficiency virus infection) ICD Codes: Z21 - HIV (human immunodeficiency virus infection) SNOMED: 58245938 (3) Cardiomyopathy (4) EF of 20% Assessment/Plan NPO GI evaluation IV fluids possible endoscopy ID evaluation. Lyn Wesley MD Nov 02, 2017 20:06
[2017-11-02] MEDS: Heparin 5000 units/ml inj SUBQ SCH (21:38)
[2017-11-02 23:54] VITALS: BP 143/90
[2017-11-03] VITALS (13 sets, daily range): BP systolic 123–142; BP diastolic 78–92
[2017-11-03] MEDS: Morphine Sulfate 4mg/ml Inj IVP PRN ×5 (02:44→23:55)
[2017-11-03] MEDS: D5 1/2NS 1,000 ML IV SCH ×3 (05:41→23:55)
[2017-11-03] MEDS: Metoprolol Tartrate 50mg tab ORAL SCH ×2 (08:17→17:46)
[2017-11-03] MEDS: Nystatin Susp 500,000 units/5ml ORAL SCH ×4 (08:17→21:23)
[2017-11-03] MEDS: Lisinopril 20mg tab ORAL SCH (08:18)
[2017-11-03] MEDS: Heparin 5000 units/ml inj SUBQ SCH ×2 (08:23→21:26)
[2017-11-03] MEDS: Pantoprazole Inj IVP SCH (08:27)
[2017-11-03 08:47] LABS: BASOPHILS % (AUTO) 1.2 % (0.0-2.0); EOSINOPHILS % (AUTO) 2.1 % (0.0-3.0); HEMATOCRIT 35.5 % (42.0-52.0); HEMOGLOBIN 11.9 G/DL (14.2-18.0); LYMPHOCYTES % (AUTO) 29.6 % (20.0-45.0); MEAN CORPUSCULAR VOLUME 83 FL (80-99); NEUTROPHILS % (AUTO) 54.1 % (45.0-75.0); PLATELET COUNT 191 K/UL (150-450); RED BLOOD COUNT 4.27 M/UL (4.70-6.10); RED CELL DISTRIBUTION WIDTH 14.7 % (11.6-14.8); WHITE BLOOD COUNT 6.9 K/UL (4.8-10.8)
[2017-11-03] MEDS ORDERED: Pantoprazole Inj IVP SCH (09:00)
[2017-11-03 09:18] LABS: ALANINE AMINOTRANSFERASE 42 U/L (12-78); ALBUMIN 2.6 G/DL (3.4-5.0); ALBUMIN/GLOBULIN RATIO 0.6 (1.0-2.7); ALKALINE PHOSPHATASE 57 U/L (46-116); AMYLASE 98 U/L (25-115); ANION GAP 9 mmol/L (5-15); ASPARTATE AMINO TRANSFERASE 28 U/L (15-37); BILIRUBIN,TOTAL 0.3 MG/DL (0.2-1.0); BLOOD UREA NITROGEN 10 mg/dL (7-18); CALCIUM 8.3 MG/DL (8.5-10.1); CARBON DIOXIDE 24 MMOL/L (21-32); CHLORIDE 105 MMOL/L (98-107); CREATININE 0.8 MG/DL (0.55-1.30); SODIUM 138 MMOL/L (136-145)
[2017-11-03] MEDS ORDERED: Propofol 200mg/20ml IV ONE (10:00)
[2017-11-03] MEDS ORDERED: Lidocaine 1% MPF 10mg/ml 5ml ONE (10:00)
--- NOTE | 2017-11-03 10:06 | Anethesia Preoperative Eval ---
Anesthesia Pre-op PMH/ROS General Date of Evaluation: Nov 03, 2017 Time of Evaluation: 09:56 Anesthesiologist: jacques ASA Score: ASA 4 Mallampati Score Class I : Soft palate, uvula, fauces, pillars visible Class II: Soft palate, uvula, fauces visible Class III: Soft palate, base of uvula visible Class IV: Only hard plate visible Mallampati Classification: Class II Surgeon: carola Diagnosis: esophagitis Surgical Procedure: egd Family History: no anesthesia problems Allergies: Coded Allergies: No Known Allergies (Unverified , 09/08/13) Medications: see eMAR Past Medical History Cardiovascular: Reports: HTN, other - chf, pacemaker (patient denies pacemaker) Pulmonary: Reports: other - bronchitis Gastrointestinal/Genitourinary: Reports: other Neurologic/Psychiatric: Reports: depression/anxiety, other - bipolar disorder Hematology/Immune: Reports: other - hiv+ Anesthesia Pre-op Phys. Exam Physician Exam Last Vital Signs Date Time Temp Pulse Resp B/P (MAP) Pulse Ox O2 Delivery O2 Flow Rate FiO2 11/03/17 08:57 97.8 11/03/17 08:18 130/92 11/03/17 08:17 77 11/03/17 08:00 20 93 11/02/17 14:53 Room Air 21 Constitutional: NAD Neurologic: CN 2-12 intact Cardiovascular: RRR Respiratory: CTA Gastrointestinal: S/NT/ND Airway Exam Mallampati Score: Class II MO: limited Neck: short TMD: 2fb ROM: limited Teeth: intact Anesthesia Pre-op A/P Labs Hematology Test 11/02/17 12:30 11/03/17 08:00 White Blood Count 7.6 K/UL (4.8-10.8) 6.9 K/UL (4.8-10.8) Red Blood Count 5.21 M/UL (4.70-6.10) 4.27 M/UL (4.70-6.10) L Hemoglobin 14.4 G/DL (14.2-18.0) 11.9 G/DL (14.2-18.0) L Hematocrit 43.5 % (42.0-52.0) 35.5 % (42.0-52.0) L Mean Corpuscular Volume 84 FL (80-99) 83 FL (80-99) Mean Corpuscular Hemoglobin 27.6 PG (27.0-31.0) 27.9 PG (27.0-31.0) Mean Corpuscular Hemoglobin Concent 33.0 G/DL (32.0-36.0) 33.6 G/DL (32.0-36.0) Red Cell Distribution Width 14.5 % (11.6-14.8) 14.7 % (11.6-14.8) Platelet Count 228 K/UL (150-450) 191 K/UL (150-450) Mean Platelet Volume 8.6 FL (6.5-10.1) 8.2 FL (6.5-10.1) Neutrophils (%) (Auto) 58.6 % (45.0-75.0) 54.1 % (45.0-75.0) Lymphocytes (%) (Auto) 28.8 % (20.0-45.0) 29.6 % (20.0-45.0) Monocytes (%) (Auto) 9.5 % (1.0-10.0) 13.0 % (1.0-10.0) H Eosinophils (%) (Auto) 2.0 % (0.0-3.0) 2.1 % (0.0-3.0) Basophils (%) (Auto) 1.1 % (0.0-2.0) 1.2 % (0.0-2.0) Coagulation Test 11/02/17 12:30 11/03/17 08:00 Prothrombin Time 10.5 SEC (9.30-11.50) Prothromb Time International Ratio 1.0 (0.9-1.1) Activated Partial Thromboplast Time 28 SEC (23-33) 32 SEC (23-33) Chemistry Test 11/02/17 12:30 11/03/17 08:00 Sodium Level 135 MMOL/L (136-145) L 138 MMOL/L (136-145) Potassium Level 4.5 MMOL/L (3.5-5.1) 4.0 MMOL/L (3.5-5.1) Chloride Level 100 MMOL/L (98-107) 105 MMOL/L (98-107) Carbon Dioxide Level 22 MMOL/L (21-32) 24 MMOL/L (21-32) Anion Gap 13 mmol/L (5-15) 9 mmol/L (5-15) Blood Urea Nitrogen 21 mg/dL (7-18) H 10 mg/dL (7-18) Creatinine 1.4 MG/DL (0.55-1.30) H 0.8 MG/DL (0.55-1.30) Estimat Glomerular Filtration Rate 54.3 mL/min (>60) > 60 mL/min (>60) Glucose Level 89 MG/DL (74-106) 92 MG/DL (74-106) Lactic Acid Level 1.40 mmol/L (0.66-2.22) Calcium Level 9.4 MG/DL (8.5-10.1) 8.3 MG/DL (8.5-10.1) L Total Bilirubin 0.5 MG/DL (0.2-1.0) 0.3 MG/DL (0.2-1.0) Aspartate Amino Transf (AST/SGOT) 50 U/L (15-37) H 28 U/L (15-37) Alanine Aminotransferase (ALT/SGPT) 59 U/L (12-78) 42 U/L (12-78) Alkaline Phosphatase 74 U/L (46-116) 57 U/L (46-116) Total Creatine Kinase 29 U/L (26-308) Troponin I 0.000 ng/mL (0.000-0.056) Pro-B-Type Natriuretic Peptide 92 pg/mL (0-125) Total Protein 8.4 G/DL (6.4-8.2) H 6.8 G/DL (6.4-8.2) Albumin 3.3 G/DL (3.4-5.0) L 2.6 G/DL (3.4-5.0) L Globulin 5.1 g/dL 4.2 g/dL Albumin/Globulin Ratio 0.6 (1.0-2.7) L 0.6 (1.0-2.7) L Lipase 125 U/L (73-393) 168 U/L (73-393) Amylase Level 98 U/L (25-115) Risk Assessment & Plan Assessment: [email or web address] Plan: mac Status Change Before Surgery: No Pre-Antibiotics Drug: DIDI Sibley Nov 03, 2017 10:06
--- NOTE | 2017-11-03 10:09 | Pre-Procedure Note/Attestation ---
Pre-Procedure Note/Attestation Complete Prior to Procedure Planned Procedure: not applicable Procedure Narrative: egd Indications for Procedure Pre-Operative Diagnosis: dysphagia Attestation I attest that I discussed the nature of the procedure; its benefits; risks and complications; and alternatives (and the risks and benefits of such alternatives ), prior to the procedure, with the patient (or the patient's legal vendor representatives). I attest that, if there was a reasonable possibility of needing a blood transfusion, the patient (or the patient's legal vendor representatives) was given the [facility] standardized written summary, pursuant to the Farhad Boutte Blood Safety Act ([place] Health and Safety Code # 1645, as amended). I attest that I re-evaluated the patient just prior to the surgery and that there has been no change in the patient's H&P, except as documented below: ROOSEVELT ARIAS Nov 03, 2017 10:09
[2017-11-03] MEDS ORDERED: NS 500ML IV ONE (10:10)
[2017-11-03] MEDS ORDERED: Midazolam 2mg/2ml Inj IVP PRN (10:15)
[2017-11-03] MEDS ORDERED: fentaNYL 100 mcg/2 mL IV PRN (10:15)
[2017-11-03] MEDS ORDERED: Atropine Inj 1mg/10ml Syr IV PRN (10:15)
[2017-11-03] MEDS ORDERED: DiphenhydrAMINE 50mg/ml Inj IVP PRN (10:15)
--- NOTE | 2017-11-03 10:33 | Endoscopy Procedure Note ---
Endoscopy Procedure Note General Indication for Procedure: dysphagia Procedures Performed: EGD Operative Findings/Diagnosis: esophagitis Specimen: yes Pt Tolerated Procedure Well: Yes Estimated Blood Loss: none Anesthesia Anesthesiologist: john Anesthesia: MAC Inserted Devices Implant(s) used?: No GI Core Measures 50 yrs or older w/o bx or poly: Not Applicable 10yrs. F/U not recommended: Not Applicable ROOSEVELT ARIAS Nov 03, 2017 10:33
--- NOTE | 2017-11-03 13:18 | Immediate Post-Op Evaluation ---
Immediate Post-Op Evalulation Immediate Post-Op Evalulation Procedure: egd Date of Evaluation: Nov 03, 2017 Time of Evaluation: 10:49 IV Fluids: 150ml 0.9ns Blood Products: none Estimated Blood Loss: negligible Blood Pressure Systolic: 135 Blood Pressure Diastolic: 68 Pulse Rate: 67 Respiratory Rate: 18 O2 Sat by Pulse Oximetry: 100 Temperature (Fahrenheit): 97.9 Pain Score (1-10): 0 Nausea: No Vomiting: No Complications none Patient Status: awake, reacts, patent Hydration Status: adequate Drug: DIDI Sibley Nov 03, 2017 13:18
--- NOTE | 2017-11-03 13:19 | 48 Hour Post Anesthesia Eval ---
Post Anesthesia Evaluation Procedure: egd Date of Evaluation: Nov 03, 2017 Time of Evaluation: 11:01 Blood Pressure Systolic: 136 0: 65 Pulse Rate: 66 Respiratory Rate: 18 Temperature (Fahrenheit): 97.9 O2 Sat by Pulse Oximetry: 100 Airway: patent Nausea: No Vomiting: No Pain Intensity: 0 Hydration Status: adequate Cardiopulmonary Status: stable Mental Status/LOC: patient returned to baseline Post-Anesthesia Complications: none Follow-up care needed: N/A DIDI FRANK Nov 03, 2017 13:19
--- NOTE | 2017-11-03 16:15 | Procedure Note ---
DATE OF PROCEDURE: 11/03/2017 SURGEON: Tay Coe M.D. ANESTHESIA: Per Dr. Iglesias. REFERRING PHYSICIAN: Lyn Wesley M.D. PROCEDURE: Upper endoscopy with biopsy. INSTRUMENT: Olympus adult flexible upper endoscope. INDICATION: Dysphagia. The procedure, risks, benefits, and possible consequences, including hemorrhage, aspiration, perforation and infection, and alternative treatments, were explained to the patient/legal guardian by Dr. Tay Coe and the patient/legal guardian understood and accepted these risks. DESCRIPTION OF PROCEDURE: After informed consent was obtained and the patient was adequately sedated, Olympus upper endoscope was advanced from mouth into the second portion of the duodenum and retroflexion was performed in the stomach. The patient had evidence of multiple ulcerations in the distal esophagus suspicious for HSV versus CMV infection. Biopsy from the these ulcers was obtained. The patient also has evidence of severe miguel esophagitis and also miguel injection in his mouth and his throat. In the stomach, there was no evidence of any obvious ulcerations. At this time, the scope was retrieved and the procedure was terminated. SUMMARY OF FINDINGS: 1. Severe miguel infection of the oral cavity and also esophagus. 2. Multiple ulcerations of the distal esophagus suspicious for HSV versus CMV. PLAN: Send a serology for CMV and HSV. Follow biopsy results and treat accordingly. Start Diflucan IV 200 mg daily for 10 days. I want to thank Dr. Wesley for this kind referral. Tay Coe M.D. DR: ALAN JOB#: [id number] CC: Lyn Wesley M.D.; Fax#: [phone]
--- NOTE | 2017-11-03 17:24 | Cardiology Report ---
APPROVED REPORT EKG Measurement Heart [id number] Normal sinus rhythm Left axis deviation Septal infarct, age undetermined Abnormal ECG
--- NOTE | 2017-11-03 19:21 | Pulmonology Progress Note ---
Assessment/Plan Problems: (1) Esophagitis (2) EF of 20% (3) HIV (human immunodeficiency virus infection) (4) Cardiomyopathy Assessment/Plan iv abx check cultures advance diet gradually Subjective ROS Limited/Unobtainable: No Allergies: Coded Allergies: No Known Allergies (Unverified , 09/08/13) Objective Last 24 Hour Vital Signs Date Time Temp Pulse Resp B/P (MAP) Pulse Ox O2 Delivery O2 Flow Rate FiO2 11/03/17 18:42 98.1 11/03/17 17:46 69 123/78 11/03/17 16:00 98.1 69 19 123/78 96 98.1 11/03/17 16:00 Room Air 11/03/17 14:12 97.9 11/03/17 13:42 97.9 11/03/17 13:19 208.2 66 18 100 11/03/17 13:18 208.2 67 18 100 11/03/17 12:00 98.2 66 20 141/89 93 98.2 11/03/17 11:30 97.9 63 17 128/79 96 Room Air 97.9 11/03/17 11:17 64 17 126/81 96 Room Air 11/03/17 11:07 97.9 63 18 128/80 96 Room Air 97.9 11/03/17 10:57 64 18 129/89 96 Room Air 11/03/17 10:47 66 18 126/87 100 Nasal Cannula 2.0 11/03/17 10:42 69 19 125/87 100 Nasal Cannula 2.0 11/03/17 10:37 97.9 72 18 135/86 100 Nasal Cannula 2.0 97.9 11/03/17 08:27 97.8 11/03/17 08:18 130/92 11/03/17 08:17 77 130/92 11/03/17 08:15 144/97 11/03/17 08:00 97.8 77 20 138/92 93 97.8 11/03/17 04:00 98.1 67 18 134/90 94 98.1 11/02/17 23:54 97.8 72 18 143/90 95 97.8 11/02/17 22:02 97.9 11/02/17 20:00 97.9 70 18 140/89 95 97.9 Intake and Output 11/02/17 11/03/17 19:00 07:00 Intake Total 1420 ml 75 ml Output Total 620 ml Balance 1420 ml -545 ml Intake Oral 120 ml IV Total 1300 ml 75 ml Output Urine Total 620 ml # Bowel Movements 1 General Appearance: WD/WN HEENT: normocephalic Respiratory/Chest: chest wall non-tender, lungs clear Cardiovascular: normal peripheral pulses, normal rate Abdomen: normal bowel sounds, soft, non tender Genitourinary: normal external genitalia Skin: no lesions, no ulcers Laboratory Tests 11/03/17 08:00: White Blood Count 6.9, Red Blood Count 4.27L, Hemoglobin 11.9L, Hematocrit 35.5L , Mean Corpuscular Volume 83, Mean Corpuscular Hemoglobin 27.9, Mean Corpuscular Hemoglobin Concent 33.6, Red Cell Distribution Width 14.7, Platelet Count 191, Mean Platelet Volume 8.2, Neutrophils (%) (Auto) 54.1, Lymphocytes (% ) (Auto) 29.6, Monocytes (%) (Auto) 13.0H, Eosinophils (%) (Auto) 2.1, Basophils (%) (Auto) 1.2, Activated Partial Thromboplast Time 32, Sodium Level 138, Potassium Level 4.0, Chloride Level 105, Carbon Dioxide Level 24, Anion Gap 9, Blood Urea Nitrogen 10, Creatinine 0.8, Estimat Glomerular Filtration Rate > 60, Glucose Level 92, Calcium Level 8.3L, Total Bilirubin 0.3, Aspartate Amino Transf (AST/SGOT) 28, Alanine Aminotransferase (ALT/SGPT) 42, Alkaline Phosphatase 57, Total Protein 6.8, Albumin 2.6L, Globulin 4.2, Albumin/Globulin Ratio 0.6L, Amylase Level 98, Lipase 168 11/03/17 16:30: Cytomegalovirus IgG Antibody [Pending], Herpes Simplex Virus I IgG Antibody [ Pending], Herpes Simplex Virus I IgM Ab (IFA) [Pending], Herpes Simplex Virus II IgG Ab [Pending], Herpes Simplex Virus II IgM Ab (IFA [Pending] Current Medications Medications (Trade) Dose Ordered Sig/Beau Route PRN Reason Start Time Stop Time Status Last Admin Dose Admin Acetaminophen (Tylenol) 650 mg Q4H PRN ORAL fever 11/02/17 15:00 12/02/17 14:59 Al Hydroxide/Mg Hydroxide (Mylanta II) 30 ml Q6H PRN ORAL dyspepsia 11/02/17 15:00 12/02/17 14:59 Dextrose (Dextrose 50%) 25 ml STAT PRN IV Hypoglycemia BS 60-69 11/02/17 15:00 12/02/17 14:59 Dextrose (Dextrose 50%) 50 ml STAT PRN IV Hypoglycemia BS<60 11/02/17 15:45 12/02/17 15:44 Dextrose/Sodium Chloride 1,000 ml @ 75 mls/hr [id number] IV 11/02/17 16:00 12/02/17 15:59 11/03/17 17:47 Diphenhydramine HCl (Benadryl) 25 mg Q6H PRN ORAL Itching/Pruritis 11/02/17 15:00 12/02/17 14:59 Famotidine (Pepcid I.v.) 20 mg QHS IVP 11/02/17 21:00 12/02/17 20:59 11/02/17 22:36 Fluconazole/ Sodium Chloride 100 ml @ 100 mls/hr Q24H IV 11/03/17 12:00 11/10/17 11:59 11/03/17 12:55 Heparin Sodium (Porcine) (Heparin 5000 units/ml) 5,000 units EVERY 12 HOURS SUBQ 11/02/17 21:00 12/02/17 20:59 11/03/17 08:23 Lisinopril (Prinivil) 40 mg DAILY ORAL 11/03/17 09:00 12/03/17 08:59 11/03/17 08:18 Metoprolol Tartrate (Lopressor) 50 mg BID ORAL 11/02/17 18:00 12/02/17 17:59 11/03/17 17:46 Morphine Sulfate (Morphine Sulfate) 2 mg EVERY 4 HOURS PRN IVP Severe Pain (Pain Scale 7-10) 11/02/17 16:00 11/09/17 15:59 11/03/17 18:42 Nitroglycerin (Ntg) 0.4 mg Q5M X 3 DOSES PRN SL Prn Chest Pain 11/02/17 15:00 12/02/17 14:59 11/03/17 08:15 Nystatin (Nystatin) 5 ml QID ORAL 11/02/17 18:00 11/09/17 17:59 11/03/17 17:46 Ondansetron HCl (Zofran) 4 mg Q6H PRN IVP Nausea & Vomiting 11/02/17 15:00 12/02/17 14:59 Pantoprazole (Protonix) 40 mg DAILY IVP 11/03/17 09:00 12/03/17 08:59 11/03/17 08:27 Polyethylene Glycol (Miralax) 17 gm HSPRN PRN ORAL Constipation 11/02/17 15:00 12/02/17 14:59 Temazepam (Restoril) 15 mg HSPRN PRN ORAL Insomnia 11/02/17 15:00 11/09/17 14:59 Lyn Wesley MD Nov 03, 2017 19:21
--- NOTE | 2017-11-03 22:53 | Consultation ---
Consult Note Consult Note [id number] Tramaine Wick MD Nov 03, 2017 22:53
[2017-11-04 04:00] VITALS: BP 134/76
[2017-11-04] MEDS: Morphine Sulfate 4mg/ml Inj IVP PRN ×4 (06:08→21:01)
[2017-11-04 07:04] LABS: ALANINE AMINOTRANSFERASE 35 U/L (12-78); ALBUMIN 2.7 G/DL (3.4-5.0); ALBUMIN/GLOBULIN RATIO 0.6 (1.0-2.7); ALKALINE PHOSPHATASE 58 U/L (46-116); ANION GAP 3 mmol/L (5-15); ASPARTATE AMINO TRANSFERASE 22 U/L (15-37); BILIRUBIN,TOTAL 0.5 MG/DL (0.2-1.0); BLOOD UREA NITROGEN 7 mg/dL (7-18); CALCIUM 8.5 MG/DL (8.5-10.1); CARBON DIOXIDE 29 MMOL/L (21-32); CHLORIDE 105 MMOL/L (98-107); CREATININE 0.9 MG/DL (0.55-1.30); POTASSIUM 3.9 MMOL/L (3.5-5.1); SODIUM 137 MMOL/L (136-145)
[2017-11-04 07:17] LABS: EOSINOPHILS % (AUTO) 1.4 % (0.0-3.0); HEMATOCRIT 35.6 % (42.0-52.0); HEMOGLOBIN 12.3 G/DL (14.2-18.0); LYMPHOCYTES % (AUTO) 30.3 % (20.0-45.0); MEAN CORPUSCULAR VOLUME 83 FL (80-99); MONOCYTES % (AUTO) 12.2 % (1.0-10.0); NEUTROPHILS % (AUTO) 55.1 % (45.0-75.0); PLATELET COUNT 188 K/UL (150-450); RED BLOOD COUNT 4.29 M/UL (4.70-6.10); RED CELL DISTRIBUTION WIDTH 14.7 % (11.6-14.8)
[2017-11-04 07:23] LABS: PHOSPHORUS 2.8 MG/DL (2.5-4.9)
[2017-11-04 08:15] VITALS: BP 138/86
[2017-11-04] MEDS: Nystatin Susp 500,000 units/5ml ORAL SCH ×5 (08:38→21:47)
[2017-11-04] MEDS: Lisinopril 20mg tab ORAL SCH (08:38)
[2017-11-04] MEDS: Metoprolol Tartrate 50mg tab ORAL SCH ×2 (08:39→17:41)
[2017-11-04] MEDS: Heparin 5000 units/ml inj SUBQ SCH ×2 (08:42→21:48)
[2017-11-04] MEDS: Pantoprazole Inj IVP SCH (09:32)
--- NOTE | 2017-11-04 09:53 | GI Progress Note ---
Assessment/Plan Problems: (1) Esophageal ulcer ICD Codes: K22.10 - Ulcer of esophagus without bleeding SNOMED: 34621877 (2) Candidiasis, esophageal ICD Codes: B37.81 - Candidal esophagitis SNOMED: 64135742 (3) HIV (human immunodeficiency virus infection) ICD Codes: Z21 - HIV (human immunodeficiency virus infection) SNOMED: 37412982 (4) Thrush ICD Codes: B37.0 - Candidal stomatitis SNOMED: 30085672 (5) CHF exacerbation Status: unchanged Status Narrative Discussed with Dr. Coe. Assessment/Plan SUMMARY OF FINDINGS: 1. Severe miguel infection of the oral cavity and also esophagus. 2. Multiple ulcerations of the distal esophagus suspicious for HSV versus CMV. PLAN: Send a serology for CMV and HSV. Follow biopsy results and treat accordingly. Start Diflucan IV 200 mg daily for 10 days. FLD, adv as tolerated pain mgmt fu labs Subjective Subjective painful swallowing Objective Last 24 Hour Vital Signs Date Time Temp Pulse Resp B/P (MAP) Pulse Ox O2 Delivery O2 Flow Rate FiO2 11/04/17 08:39 67 138/86 11/04/17 08:38 138/86 11/04/17 08:15 98.2 67 20 138/86 92 98.2 11/04/17 08:15 Room Air 11/04/17 06:38 98.0 11/04/17 06:08 98.0 11/04/17 05:26 Room Air 11/04/17 04:00 98.0 60 18 134/76 96 98.0 11/04/17 00:00 Room Air 11/03/17 23:58 98.2 63 18 138/89 96 98.2 11/03/17 23:55 98.6 11/03/17 20:00 Room Air 11/03/17 20:00 98.6 62 18 142/82 96 98.6 11/03/17 18:42 98.1 11/03/17 17:46 69 123/78 11/03/17 16:00 98.1 69 19 123/78 96 98.1 11/03/17 16:00 Room Air 11/03/17 13:42 97.9 11/03/17 13:19 208.2 66 18 100 11/03/17 13:18 208.2 67 18 100 11/03/17 12:00 98.2 66 20 141/89 93 98.2 11/03/17 11:30 97.9 63 17 128/79 96 Room Air 97.9 11/03/17 11:17 64 17 126/81 96 Room Air 11/03/17 11:07 97.9 63 18 128/80 96 Room Air 97.9 11/03/17 10:57 64 18 129/89 96 Room Air 11/03/17 10:47 66 18 126/87 100 Nasal Cannula 2.0 11/03/17 10:42 69 19 125/87 100 Nasal Cannula 2.0 11/03/17 10:37 97.9 72 18 135/86 100 Nasal Cannula 2.0 97.9 Intake and Output 11/03/17 11/04/17 19:00 07:00 Intake Total 1165 ml 1205 ml Output Total 700 ml Balance 1165 ml 505 ml Intake Oral 240 ml 455 ml IV Total 925 ml 750 ml Output Urine Total 700 ml # Voids 3 Laboratory Tests Test 11/03/17 16:30 11/04/17 05:50 Cytomegalovirus IgG Antibody Pending Herpes Simplex Virus I IgG Antibody Pending Herpes Simplex Virus I IgM Ab (IFA) Pending Herpes Simplex Virus II IgG Ab <0.91 index (0.00-0.90) Herpes Simplex Virus II IgM Ab (IFA Pending White Blood Count 6.0 K/UL (4.8-10.8) Red Blood Count 4.29 M/UL (4.70-6.10) L Hemoglobin 12.3 G/DL (14.2-18.0) L Hematocrit 35.6 % (42.0-52.0) L Mean Corpuscular Volume 83 FL (80-99) Mean Corpuscular Hemoglobin 28.6 PG (27.0-31.0) Mean Corpuscular Hemoglobin Concent 34.5 G/DL (32.0-36.0) Red Cell Distribution Width 14.7 % (11.6-14.8) Platelet Count 188 K/UL (150-450) Mean Platelet Volume 8.7 FL (6.5-10.1) Neutrophils (%) (Auto) 55.1 % (45.0-75.0) Lymphocytes (%) (Auto) 30.3 % (20.0-45.0) Monocytes (%) (Auto) 12.2 % (1.0-10.0) H Eosinophils (%) (Auto) 1.4 % (0.0-3.0) Basophils (%) (Auto) 1.0 % (0.0-2.0) Lymphocytes Pending Erythrocyte Sedimentation Rate 30 MM/HR (0-15) H Sodium Level 137 MMOL/L (136-145) Potassium Level 3.9 MMOL/L (3.5-5.1) Chloride Level 105 MMOL/L (98-107) Carbon Dioxide Level 29 MMOL/L (21-32) Anion Gap 3 mmol/L (5-15) L Blood Urea Nitrogen 7 mg/dL (7-18) Creatinine 0.9 MG/DL (0.55-1.30) Estimat Glomerular Filtration Rate > 60 mL/min (>60) Glucose Level 91 MG/DL (74-106) Calcium Level 8.5 MG/DL (8.5-10.1) Phosphorus Level 2.8 MG/DL (2.5-4.9) Magnesium Level 1.9 MG/DL (1.8-2.4) Total Bilirubin 0.5 MG/DL (0.2-1.0) Aspartate Amino Transf (AST/SGOT) 22 U/L (15-37) Alanine Aminotransferase (ALT/SGPT) 35 U/L (12-78) Alkaline Phosphatase 58 U/L (46-116) C-Reactive Protein, Quantitative 4.2 mg/dL (0.00-0.90) H Total Protein 6.9 G/DL (6.4-8.2) Albumin 2.7 G/DL (3.4-5.0) L Globulin 4.2 g/dL Albumin/Globulin Ratio 0.6 (1.0-2.7) L Percent CD3 Cells Pending Absolute CD3 Count Pending Percent CD4 Cells Pending Absolute CD4 Count Pending T-Lymphocyte CD4/CD8 Ratio Pending Percent CD8 Cells Pending Absolute CD8 Count Pending Height (Feet): 5 Height (Inches): 5.00 Weight (Pounds): 180 General Appearance: WD/WN, no apparent distress, alert Cardiovascular: normal rate Respiratory/Chest: normal breath sounds, no respiratory distress Abdominal Exam: normal bowel sounds, non tender, soft Extremities: normal range of motion, non-tender Ramonita Villa N.P. Nov 04, 2017 09:53
[2017-11-04 11:44] VITALS: BP 142/89
[2017-11-04] MEDS ORDERED: D5 1/2NS 1000ml IV ONE ×2 (12:24→16:13)
[2017-11-04 15:39] VITALS: BP 140/96
--- NOTE | 2017-11-04 18:43 | Pulmonology Progress Note ---
Assessment/Plan Problems: (1) Esophageal ulcer (2) Candidiasis, esophageal (3) Chest pain (4) EF of 20% (5) Cardiomyopathy Assessment/Plan improving slowly continue abx symptomatic treatment f/u by GI and ID Subjective Allergies: Coded Allergies: No Known Allergies (Unverified , 09/08/13) Objective Last 24 Hour Vital Signs Date Time Temp Pulse Resp B/P (MAP) Pulse Ox O2 Delivery O2 Flow Rate FiO2 11/04/17 17:41 67 140/96 11/04/17 15:54 99.1 11/04/17 15:40 Room Air 11/04/17 15:39 99.1 67 20 140/96 95 99.1 11/04/17 15:24 97.9 11/04/17 11:44 97.9 63 20 142/89 96 97.9 11/04/17 10:13 98.2 11/04/17 08:39 67 138/86 11/04/17 08:38 138/86 11/04/17 08:15 98.2 67 20 138/86 92 98.2 11/04/17 08:15 Room Air 11/04/17 06:08 98.0 11/04/17 05:26 Room Air 11/04/17 04:00 98.0 60 18 134/76 96 98.0 11/04/17 00:00 Room Air 11/03/17 23:58 98.2 63 18 138/89 96 98.2 11/03/17 23:55 98.6 11/03/17 20:00 Room Air 11/03/17 20:00 98.6 62 18 142/82 96 98.6 Intake and Output 11/03/17 11/04/17 19:00 07:00 Intake Total 1165 ml 1205 ml Output Total 700 ml Balance 1165 ml 505 ml Intake Oral 240 ml 455 ml IV Total 925 ml 750 ml Output Urine Total 700 ml # Voids 3 General Appearance: WD/WN HEENT: normocephalic, PERRL Respiratory/Chest: lungs clear Cardiovascular: normal peripheral pulses, no JVD Abdomen: soft, non tender, no scars Extremities: no clubbing Skin: no ulcers Neurologic/Psychiatric: abnormal gait, oriented x 3 Microbiology Date/Time Source Procedure Growth Status 11/02/17 12:30 Blood Blood Culture - Preliminary NO GROWTH AFTER 24 HOURS Resulted 11/02/17 12:15 Blood Blood Culture - Preliminary NO GROWTH AFTER 24 HOURS Resulted Laboratory Tests 11/04/17 05:50: White Blood Count 6.0, Red Blood Count 4.29L, Hemoglobin 12.3L, Hematocrit 35.6L , Mean Corpuscular Volume 83, Mean Corpuscular Hemoglobin 28.6, Mean Corpuscular Hemoglobin Concent 34.5, Red Cell Distribution Width 14.7, Platelet Count 188, Mean Platelet Volume 8.7, Neutrophils (%) (Auto) 55.1, Lymphocytes (% ) (Auto) 30.3, Monocytes (%) (Auto) 12.2H, Eosinophils (%) (Auto) 1.4, Basophils (%) (Auto) 1.0, Lymphocytes [Pending], Erythrocyte Sedimentation Rate 30H, Sodium Level 137, Potassium Level 3.9, Chloride Level 105, Carbon Dioxide Level 29, Anion Gap 3L, Blood Urea Nitrogen 7, Creatinine 0.9, Estimat Glomerular Filtration Rate > 60, Glucose Level 91, Calcium Level 8.5, Phosphorus Level 2.8, Magnesium Level 1.9, Total Bilirubin 0.5, Aspartate Amino Transf (AST/SGOT) 22, Alanine Aminotransferase (ALT/SGPT) 35, Alkaline Phosphatase 58, C-Reactive Protein, Quantitative 4.2H, Total Protein 6.9, Albumin 2.7L, Globulin 4.2, Albumin/Globulin Ratio 0.6L, Percent CD3 Cells [ Pending], Absolute CD3 Count [Pending], Percent CD4 Cells [Pending], Absolute CD4 Count [Pending], T-Lymphocyte CD4/CD8 Ratio [Pending], Percent CD8 Cells [ Pending], Absolute CD8 Count [Pending] Current Medications Medications (Trade) Dose Ordered Sig/Beau Route PRN Reason Start Time Stop Time Status Last Admin Dose Admin Acetaminophen (Tylenol) 650 mg Q4H PRN ORAL fever 11/02/17 15:00 12/02/17 14:59 Al Hydroxide/Mg Hydroxide (Mylanta II) 30 ml Q6H PRN ORAL dyspepsia 11/02/17 15:00 12/02/17 14:59 Dextrose (Dextrose 50%) 25 ml STAT PRN IV Hypoglycemia BS 60-69 11/02/17 15:00 12/02/17 14:59 Dextrose (Dextrose 50%) 50 ml STAT PRN IV Hypoglycemia BS<60 11/02/17 15:45 12/02/17 15:44 Dextrose/Sodium Chloride 1,000 ml @ 75 mls/hr [id number] IV 11/02/17 16:00 12/02/17 15:59 11/03/17 23:55 Diphenhydramine HCl (Benadryl) 25 mg Q6H PRN ORAL Itching/Pruritis 11/02/17 15:00 12/02/17 14:59 Famotidine (Pepcid I.v.) 20 mg QHS IVP 11/02/17 21:00 12/02/17 20:59 11/03/17 21:23 Fluconazole/ Sodium Chloride 100 ml @ 100 mls/hr Q24H IV 11/03/17 12:00 11/10/17 11:59 11/04/17 12:12 Heparin Sodium (Porcine) (Heparin 5000 units/ml) 5,000 units EVERY 12 HOURS SUBQ 11/02/17 21:00 12/02/17 20:59 11/04/17 08:42 Lisinopril (Prinivil) 40 mg DAILY ORAL 11/03/17 09:00 12/03/17 08:59 11/04/17 08:38 Metoprolol Tartrate (Lopressor) 50 mg BID ORAL 11/02/17 18:00 12/02/17 17:59 11/04/17 17:41 Morphine Sulfate (Morphine Sulfate) 2 mg EVERY 4 HOURS PRN IVP Severe Pain (Pain Scale 7-10) 11/02/17 16:00 11/09/17 15:59 11/04/17 15:24 Nitroglycerin (Ntg) 0.4 mg Q5M X 3 DOSES PRN SL Prn Chest Pain 11/02/17 15:00 12/02/17 14:59 11/03/17 08:15 Nystatin (Nystatin) 5 ml QID ORAL 11/02/17 18:00 11/09/17 17:59 11/04/17 13:13 Ondansetron HCl (Zofran) 4 mg Q6H PRN IVP Nausea & Vomiting 11/02/17 15:00 12/02/17 14:59 Pantoprazole (Protonix) 40 mg DAILY IVP 11/03/17 09:00 5/11/18 08:59 11/04/17 09:32 Polyethylene Glycol (Miralax) 17 gm HSPRN PRN ORAL Constipation 11/02/17 15:00 12/02/17 14:59 Temazepam (Restoril) 15 mg HSPRN PRN ORAL Insomnia 11/02/17 15:00 11/09/17 14:59 Valganciclovir (Valcyte) 450 mg Q12HR ORAL 11/04/17 14:00 12/04/17 13:59 11/04/17 15:16 Lyn Wesley MD Nov 04, 2017 18:43
[2017-11-04 19:55] VITALS: BP 145/97
--- NOTE | 2017-11-04 19:57 | Infectious Diseases Prog Note ---
Subjective Allergies: Coded Allergies: No Known Allergies (Unverified , 09/08/13) Objective Vital Signs Last 24 Hour Vital Signs Date Time Temp Pulse Resp B/P (MAP) Pulse Ox O2 Delivery O2 Flow Rate FiO2 11/04/17 19:55 99.0 78 18 145/97 97 99.0 11/04/17 17:41 67 140/96 11/04/17 15:54 99.1 11/04/17 15:40 Room Air 11/04/17 15:39 99.1 67 20 140/96 95 99.1 11/04/17 15:24 97.9 11/04/17 11:44 97.9 63 20 142/89 96 97.9 11/04/17 10:13 98.2 11/04/17 08:39 67 138/86 11/04/17 08:38 138/86 11/04/17 08:15 98.2 67 20 138/86 92 98.2 11/04/17 08:15 Room Air 11/04/17 06:08 98.0 11/04/17 05:26 Room Air 11/04/17 04:00 98.0 60 18 134/76 96 98.0 11/04/17 00:00 Room Air 11/03/17 23:58 98.2 63 18 138/89 96 98.2 11/03/17 23:55 98.6 11/03/17 20:00 Room Air 11/03/17 20:00 98.6 62 18 142/82 96 98.6 Height (Feet): 5 Height (Inches): 5.00 Weight (Pounds): 180 Microbiology Date/Time Source Procedure Growth Status 11/02/17 12:30 Blood Blood Culture - Preliminary NO GROWTH AFTER 24 HOURS Resulted 11/02/17 12:15 Blood Blood Culture - Preliminary NO GROWTH AFTER 24 HOURS Resulted Laboratory Tests Test 11/04/17 05:50 White Blood Count 6.0 K/UL (4.8-10.8) Red Blood Count 4.29 M/UL (4.70-6.10) L Hemoglobin 12.3 G/DL (14.2-18.0) L Hematocrit 35.6 % (42.0-52.0) L Mean Corpuscular Volume 83 FL (80-99) Mean Corpuscular Hemoglobin 28.6 PG (27.0-31.0) Mean Corpuscular Hemoglobin Concent 34.5 G/DL (32.0-36.0) Red Cell Distribution Width 14.7 % (11.6-14.8) Platelet Count 188 K/UL (150-450) Mean Platelet Volume 8.7 FL (6.5-10.1) Neutrophils (%) (Auto) 55.1 % (45.0-75.0) Lymphocytes (%) (Auto) 30.3 % (20.0-45.0) Monocytes (%) (Auto) 12.2 % (1.0-10.0) H Eosinophils (%) (Auto) 1.4 % (0.0-3.0) Basophils (%) (Auto) 1.0 % (0.0-2.0) Lymphocytes Pending Erythrocyte Sedimentation Rate 30 MM/HR (0-15) H Sodium Level 137 MMOL/L (136-145) Potassium Level 3.9 MMOL/L (3.5-5.1) Chloride Level 105 MMOL/L (98-107) Carbon Dioxide Level 29 MMOL/L (21-32) Anion Gap 3 mmol/L (5-15) L Blood Urea Nitrogen 7 mg/dL (7-18) Creatinine 0.9 MG/DL (0.55-1.30) Estimat Glomerular Filtration Rate > 60 mL/min (>60) Glucose Level 91 MG/DL (74-106) Calcium Level 8.5 MG/DL (8.5-10.1) Phosphorus Level 2.8 MG/DL (2.5-4.9) Magnesium Level 1.9 MG/DL (1.8-2.4) Total Bilirubin 0.5 MG/DL (0.2-1.0) Aspartate Amino Transf (AST/SGOT) 22 U/L (15-37) Alanine Aminotransferase (ALT/SGPT) 35 U/L (12-78) Alkaline Phosphatase 58 U/L (46-116) C-Reactive Protein, Quantitative 4.2 mg/dL (0.00-0.90) H Total Protein 6.9 G/DL (6.4-8.2) Albumin 2.7 G/DL (3.4-5.0) L Globulin 4.2 g/dL Albumin/Globulin Ratio 0.6 (1.0-2.7) L Percent CD3 Cells Pending Absolute CD3 Count Pending Percent CD4 Cells Pending Absolute CD4 Count Pending T-Lymphocyte CD4/CD8 Ratio Pending Percent CD8 Cells Pending Absolute CD8 Count Pending Current Medications Medications (Trade) Dose Ordered Sig/Beau Route PRN Reason Start Time Stop Time Status Last Admin Dose Admin Acetaminophen (Tylenol) 650 mg Q4H PRN ORAL fever 11/02/17 15:00 12/02/17 14:59 Al Hydroxide/Mg Hydroxide (Mylanta II) 30 ml Q6H PRN ORAL dyspepsia 11/02/17 15:00 12/02/17 14:59 Dextrose (Dextrose 50%) 25 ml STAT PRN IV Hypoglycemia BS 60-69 11/02/17 15:00 12/02/17 14:59 Dextrose (Dextrose 50%) 50 ml STAT PRN IV Hypoglycemia BS<60 11/02/17 15:45 12/02/17 15:44 Dextrose/Sodium Chloride 1,000 ml @ 75 mls/hr [id number] IV 11/02/17 16:00 12/02/17 15:59 11/03/17 23:55 Diphenhydramine HCl (Benadryl) 25 mg Q6H PRN ORAL Itching/Pruritis 11/02/17 15:00 12/02/17 14:59 Famotidine (Pepcid I.v.) 20 mg QHS IVP 11/02/17 21:00 12/02/17 20:59 11/03/17 21:23 Fluconazole/ Sodium Chloride 100 ml @ 100 mls/hr Q24H IV 11/03/17 12:00 11/10/17 11:59 11/04/17 12:12 Heparin Sodium (Porcine) (Heparin 5000 units/ml) 5,000 units EVERY 12 HOURS SUBQ 11/02/17 21:00 12/02/17 20:59 11/04/17 08:42 Lisinopril (Prinivil) 40 mg DAILY ORAL 11/03/17 09:00 12/03/17 08:59 11/04/17 08:38 Metoprolol Tartrate (Lopressor) 50 mg BID ORAL 11/02/17 18:00 12/02/17 17:59 11/04/17 17:41 Morphine Sulfate (Morphine Sulfate) 2 mg EVERY 4 HOURS PRN IVP Severe Pain (Pain Scale 7-10) 11/02/17 16:00 11/09/17 15:59 11/04/17 15:24 Nitroglycerin (Ntg) 0.4 mg Q5M X 3 DOSES PRN SL Prn Chest Pain 11/02/17 15:00 12/02/17 14:59 11/03/17 08:15 Nystatin (Nystatin) 5 ml QID ORAL 11/02/17 18:00 11/09/17 17:59 11/04/17 13:13 Ondansetron HCl (Zofran) 4 mg Q6H PRN IVP Nausea & Vomiting 11/02/17 15:00 12/02/17 14:59 Pantoprazole (Protonix) 40 mg DAILY IVP 11/03/17 09:00 12/03/17 08:59 11/04/17 09:32 Polyethylene Glycol (Miralax) 17 gm HSPRN PRN ORAL Constipation 11/02/17 15:00 12/02/17 14:59 Temazepam (Restoril) 15 mg HSPRN PRN ORAL Insomnia 11/02/17 15:00 11/09/17 14:59 Valganciclovir (Valcyte) 450 mg Q12HR ORAL 11/04/17 14:00 12/04/17 13:59 11/04/17 15:16 Tramaine Wick MD Nov 04, 2017 19:57
--- NOTE | 2017-11-04 20:31 | Infectious Diseases Prog Note ---
Assessment/Plan Assessment/Plan ASSESSMENT: The patient is a 47-year-old male with, Oral thrush. Esophagitis, candidiasis, thrush (CMV versus HSV). Status post EGD, pathology : pending. HIV/AIDS noncompliant, CD4 count of 101 ( 08/2017) History of HIV, noncompliant with taking his medication, CD4 in 2014 was 283. Hepatitis panel has been negative in 2014. History of CHF. Hypertension. Diverticulosis Anxiety/depression. PLAN: continue the patient on Diflucan d # and Valcyte d# cont patient on Bactrim for PCP prophylaxis. restart HIV medication as outpatient. Monitor CBC and BMP. Monitor chest x-ray. cryptococcus antigen coccidio AB AFB and fungal blood culture. Subjective Allergies: Coded Allergies: No Known Allergies (Unverified , 09/08/13) Subjective feeling better Objective Vital Signs Last 24 Hour Vital Signs Date Time Temp Pulse Resp B/P (MAP) Pulse Ox O2 Delivery O2 Flow Rate FiO2 11/04/17 19:55 99.0 78 18 145/97 97 99.0 11/04/17 17:41 67 140/96 11/04/17 15:54 99.1 11/04/17 15:40 Room Air 11/04/17 15:39 99.1 67 20 140/96 95 99.1 11/04/17 15:24 97.9 11/04/17 11:44 97.9 63 20 142/89 96 97.9 11/04/17 10:13 98.2 11/04/17 08:39 67 138/86 11/04/17 08:38 138/86 11/04/17 08:15 98.2 67 20 138/86 92 98.2 11/04/17 08:15 Room Air 11/04/17 06:08 98.0 11/04/17 05:26 Room Air 11/04/17 04:00 98.0 60 18 134/76 96 98.0 11/04/17 00:00 Room Air 11/03/17 23:58 98.2 63 18 138/89 96 98.2 11/03/17 23:55 98.6 Height (Feet): 5 Height (Inches): 5.00 Weight (Pounds): 180 HEENT: anicteric Respiratory/Chest: normal breath sounds Cardiovascular: regular rhythm Abdomen: no organomegaly Microbiology Date/Time Source Procedure Growth Status 11/02/17 12:30 Blood Blood Culture - Preliminary NO GROWTH AFTER 24 HOURS Resulted 11/02/17 12:15 Blood Blood Culture - Preliminary NO GROWTH AFTER 24 HOURS Resulted Laboratory Tests Test 11/04/17 05:50 White Blood Count 6.0 K/UL (4.8-10.8) Red Blood Count 4.29 M/UL (4.70-6.10) L Hemoglobin 12.3 G/DL (14.2-18.0) L Hematocrit 35.6 % (42.0-52.0) L Mean Corpuscular Volume 83 FL (80-99) Mean Corpuscular Hemoglobin 28.6 PG (27.0-31.0) Mean Corpuscular Hemoglobin Concent 34.5 G/DL (32.0-36.0) Red Cell Distribution Width 14.7 % (11.6-14.8) Platelet Count 188 K/UL (150-450) Mean Platelet Volume 8.7 FL (6.5-10.1) Neutrophils (%) (Auto) 55.1 % (45.0-75.0) Lymphocytes (%) (Auto) 30.3 % (20.0-45.0) Monocytes (%) (Auto) 12.2 % (1.0-10.0) H Eosinophils (%) (Auto) 1.4 % (0.0-3.0) Basophils (%) (Auto) 1.0 % (0.0-2.0) Lymphocytes Pending Erythrocyte Sedimentation Rate 30 MM/HR (0-15) H Sodium Level 137 MMOL/L (136-145) Potassium Level 3.9 MMOL/L (3.5-5.1) Chloride Level 105 MMOL/L (98-107) Carbon Dioxide Level 29 MMOL/L (21-32) Anion Gap 3 mmol/L (5-15) L Blood Urea Nitrogen 7 mg/dL (7-18) Creatinine 0.9 MG/DL (0.55-1.30) Estimat Glomerular Filtration Rate > 60 mL/min (>60) Glucose Level 91 MG/DL (74-106) Calcium Level 8.5 MG/DL (8.5-10.1) Phosphorus Level 2.8 MG/DL (2.5-4.9) Magnesium Level 1.9 MG/DL (1.8-2.4) Total Bilirubin 0.5 MG/DL (0.2-1.0) Aspartate Amino Transf (AST/SGOT) 22 U/L (15-37) Alanine Aminotransferase (ALT/SGPT) 35 U/L (12-78) Alkaline Phosphatase 58 U/L (46-116) C-Reactive Protein, Quantitative 4.2 mg/dL (0.00-0.90) H Total Protein 6.9 G/DL (6.4-8.2) Albumin 2.7 G/DL (3.4-5.0) L Globulin 4.2 g/dL Albumin/Globulin Ratio 0.6 (1.0-2.7) L Percent CD3 Cells Pending Absolute CD3 Count Pending Percent CD4 Cells Pending Absolute CD4 Count Pending T-Lymphocyte CD4/CD8 Ratio Pending Percent CD8 Cells Pending Absolute CD8 Count Pending Current Medications Medications (Trade) Dose Ordered Sig/Beau Route PRN Reason Start Time Stop Time Status Last Admin Dose Admin Acetaminophen (Tylenol) 650 mg Q4H PRN ORAL fever 11/02/17 15:00 12/02/17 14:59 Al Hydroxide/Mg Hydroxide (Mylanta II) 30 ml Q6H PRN ORAL dyspepsia 11/02/17 15:00 12/02/17 14:59 Dextrose (Dextrose 50%) 25 ml STAT PRN IV Hypoglycemia BS 60-69 11/02/17 15:00 12/02/17 14:59 Dextrose (Dextrose 50%) 50 ml STAT PRN IV Hypoglycemia BS<60 11/02/17 15:45 12/02/17 15:44 Dextrose/Sodium Chloride 1,000 ml @ 75 mls/hr [id number] IV 11/02/17 16:00 12/02/17 15:59 11/03/17 23:55 Diphenhydramine HCl (Benadryl) 25 mg Q6H PRN ORAL Itching/Pruritis 11/02/17 15:00 12/02/17 14:59 Famotidine (Pepcid I.v.) 20 mg QHS IVP 11/02/17 21:00 12/02/17 20:59 11/03/17 21:23 Fluconazole/ Sodium Chloride 100 ml @ 100 mls/hr Q24H IV 11/03/17 12:00 11/10/17 11:59 11/04/17 12:12 Heparin Sodium (Porcine) (Heparin 5000 units/ml) 5,000 units EVERY 12 HOURS SUBQ 11/02/17 21:00 12/02/17 20:59 11/04/17 08:42 Lisinopril (Prinivil) 40 mg DAILY ORAL 11/03/17 09:00 12/03/17 08:59 11/04/17 08:38 Metoprolol Tartrate (Lopressor) 50 mg BID ORAL 11/02/17 18:00 12/02/17 17:59 11/04/17 17:41 Morphine Sulfate (Morphine Sulfate) 2 mg EVERY 4 HOURS PRN IVP Severe Pain (Pain Scale 7-10) 11/02/17 16:00 11/09/17 15:59 11/04/17 15:24 Nitroglycerin (Ntg) 0.4 mg Q5M X 3 DOSES PRN SL Prn Chest Pain 11/02/17 15:00 12/02/17 14:59 11/03/17 08:15 Nystatin (Nystatin) 5 ml QID ORAL 11/02/17 18:00 11/09/17 17:59 11/04/17 13:13 Ondansetron HCl (Zofran) 4 mg Q6H PRN IVP Nausea & Vomiting 11/02/17 15:00 12/02/17 14:59 Pantoprazole (Protonix) 40 mg DAILY IVP 11/03/17 09:00 12/03/17 08:59 11/04/17 09:32 Polyethylene Glycol (Miralax) 17 gm HSPRN PRN ORAL Constipation 11/02/17 15:00 12/02/17 14:59 Temazepam (Restoril) 15 mg HSPRN PRN ORAL Insomnia 11/02/17 15:00 11/09/17 14:59 Trimethoprim/ Sulfamethoxazole 10 ml/Dextrose 285 ml @ 190 mls/hr DAILY IVPB 11/05/17 09:00 11/12/17 08:59 UNV Valganciclovir (Valcyte) 450 mg Q12HR ORAL 11/04/17 14:00 12/04/17 13:59 11/04/17 15:16 Tramaine Wick MD Nov 04, 2017 20:31
[2017-11-04] MEDS: D5 1/2NS 1,000 ML IV SCH (21:49)
[2017-11-04 23:53] VITALS: BP 139/90
--- NOTE | 2017-11-05 01:30 | Consultation ---
DATE OF CONSULTATION: 11/04/2017 INFECTIOUS DISEASE CONSULTATION CONSULTING PHYSICIAN: Tramaine Wick M.D. REQUESTING PHYSICIAN: Lyn Wesley M.D. REASON FOR CONSULTATION: Evaluation of patient for HIV and esophagitis, antibiotic management. HISTORY OF PRESENT ILLNESS: The patient is a 47-year-old male with multiple medical problems, who was admitted to this medical center due to odynophagia and pain during swallowing x5 days. The patient underwent upper endoscopy that showed esophagitis, lesions suggestive of candidiasis and ulceration suggestive of CMV versus herpes simplex. Infectious Diseases consultation has been requested for further evaluation of the patient and antibiotic management. PAST MEDICAL HISTORY: 1. History of HIV, noncompliant with taking his medication, CD4 in 2013 was 283. 2. Hepatitis panel has been negative in 2013. 3. History of CHF. 4. Hypertension. 5. Diverticulitis. 6. Anxiety/depression. ALLERGIES: No known drug allergies. MEDICATIONS: The patient off of HIV regimen. The patient will be started on Diflucan. REVIEW OF SYSTEMS: Ten-point review was done, except what was mentioned has been negative. PHYSICAL EXAMINATION: VITAL SIGNS: Temperature 99 degrees, pulse 86, respiratory rate 18, and blood pressure 145/97. HEENT: The patient has oral thrush. NECK: No lymphadenopathy. CHEST: Clear. HEART: S1 and S2. ABDOMEN: Soft. EXTREMITIES: No cyanosis at this time. NEUROLOGIC: Awake. LABORATORY AND DIAGNOSTIC DATA: White blood cells 6, hemoglobin 12 and platelets 188. UA unremarkable. BUN and creatinine are unremarkable. Liver function tests are unremarkable. CD4 count in August 2017 of 101. Hepatitis panel unremarkable in 2013. ASSESSMENT: The patient is a 47-year-old male with, 1. Oral thrush. 2. Esophagitis, candidiasis, thrush (CMV versus HSV). 3. Status post EGD, pathology report pending. 4. human immunodeficiency virus, noncompliant, CD4 count of 101. PLAN: 1. We will continue the patient on Diflucan and we will start the patient on IV ganciclovir. 2. We will start the patient on Bactrim for PCP prophylaxis. 3. Continue the patient on HIV medication as outpatient. 4. Monitor CBC and BMP. 5. Monitor the patient's clinical progression. 6. Monitor chest x-ray. 7. We will check the patient for cryptococcus antigen. 8. AFB and fungal blood culture. 9. Based on the patient's clinical course and labs, we will do further recommendation. Tramaine Wick M.D. DR: ALMA JOB#: [id number] CC:
[2017-11-05] MEDS: Morphine Sulfate 4mg/ml Inj IVP PRN ×5 (02:54→22:30)
[2017-11-05 04:00] VITALS: BP 136/88
[2017-11-05] MEDS: Metoprolol Tartrate 50mg tab ORAL SCH ×2 (08:12→17:16)
[2017-11-05] MEDS: Pantoprazole Inj IVP SCH (08:12)
[2017-11-05] MEDS: Bactrim-DS 1 tab ORAL SCH (08:12)
[2017-11-05] MEDS: Lisinopril 20mg tab ORAL SCH (08:13)
[2017-11-05] MEDS: Nystatin Susp 500,000 units/5ml ORAL SCH ×4 (08:13→22:30)
[2017-11-05 08:16] VITALS: BP 126/83
[2017-11-05] MEDS: Heparin 5000 units/ml inj SUBQ SCH ×2 (08:17→22:32)
[2017-11-05] MEDS ORDERED: Trimethoprim/Sulfamethoxazole 10 ML in D5W 275 ML IVPB SCH (09:00)
[2017-11-05 09:58] LABS: EOSINOPHILS % (AUTO) 0.5 % (0.0-3.0); HEMATOCRIT 35.6 % (42.0-52.0); HEMOGLOBIN 11.9 G/DL (14.2-18.0); LYMPHOCYTES % (AUTO) 18.4 % (20.0-45.0); MEAN CORPUSCULAR VOLUME 83 FL (80-99); MONOCYTES % (AUTO) 9.9 % (1.0-10.0); NEUTROPHILS % (AUTO) 70.2 % (45.0-75.0); PLATELET COUNT 179 K/UL (150-450); RED BLOOD COUNT 4.31 M/UL (4.70-6.10); RED CELL DISTRIBUTION WIDTH 14.8 % (11.6-14.8); WHITE BLOOD COUNT 9.2 K/UL (4.8-10.8)
[2017-11-05 10:07] LABS: ANION GAP 9 mmol/L (5-15); BLOOD UREA NITROGEN 5 mg/dL (7-18); CARBON DIOXIDE 25 MMOL/L (21-32); CHLORIDE 102 MMOL/L (98-107); CREATININE 0.8 MG/DL (0.55-1.30); POTASSIUM 3.3 MMOL/L (3.5-5.1); SODIUM 135 MMOL/L (136-145)
[2017-11-05] MEDS: D5 1/2NS 1,000 ML IV SCH (10:11)
[2017-11-05 11:47] VITALS: BP 125/86
--- NOTE | 2017-11-05 12:15 | GI Progress Note ---
Assessment/Plan Problems: (1) Esophageal ulcer ICD Codes: K22.10 - Ulcer of esophagus without bleeding SNOMED: 58296393 (2) Candidiasis, esophageal ICD Codes: B37.81 - Candidal esophagitis SNOMED: 55277488 (3) HIV (human immunodeficiency virus infection) ICD Codes: Z21 - HIV (human immunodeficiency virus infection) SNOMED: 44456835 (4) Thrush ICD Codes: B37.0 - Candidal stomatitis SNOMED: 08585559 (5) CHF exacerbation Status: progressing Status Narrative Discussed with Dr. Coe. Assessment/Plan SUMMARY OF FINDINGS: 1. Severe miguel infection of the oral cavity and also esophagus. 2. Multiple ulcerations of the distal esophagus suspicious for HSV versus CMV. CMV IgG ab positive HSV I IgG Ab positive PLAN: Start Diflucan IV 200 mg daily for 10 days. FLD, adv as tolerated pain mgmt abx per ID fu labs Subjective Subjective painful swallowing getting better Objective Last 24 Hour Vital Signs Date Time Temp Pulse Resp B/P (MAP) Pulse Ox O2 Delivery O2 Flow Rate FiO2 11/05/17 11:47 97.7 67 20 125/86 97 97.7 11/05/17 08:35 99.7 11/05/17 08:16 99.7 77 20 126/83 95 99.7 11/05/17 08:13 126/83 11/05/17 08:12 74 126/83 11/05/17 08:05 98.6 11/05/17 04:00 98.6 74 18 136/88 95 Room Air 98.6 11/04/17 23:53 98.8 77 18 139/90 97 98.8 11/04/17 19:55 99.0 78 18 145/97 97 99.0 11/04/17 17:41 67 140/96 11/04/17 15:40 Room Air 11/04/17 15:39 99.1 67 20 140/96 95 99.1 11/04/17 15:24 97.9 Intake and Output 11/04/17 11/05/17 19:00 07:00 Intake Total 865 ml 915 ml Balance 865 ml 915 ml Intake Oral 240 ml 240 ml IV Total 625 ml 675 ml # Voids 2 # Bowel Movements 1 Laboratory Tests Test 11/05/17 09:30 White Blood Count 9.2 K/UL (4.8-10.8) # Red Blood Count 4.31 M/UL (4.70-6.10) L Hemoglobin 11.9 G/DL (14.2-18.0) L Hematocrit 35.6 % (42.0-52.0) L Mean Corpuscular Volume 83 FL (80-99) Mean Corpuscular Hemoglobin 27.6 PG (27.0-31.0) Mean Corpuscular Hemoglobin Concent 33.4 G/DL (32.0-36.0) Red Cell Distribution Width 14.8 % (11.6-14.8) Platelet Count 179 K/UL (150-450) Mean Platelet Volume 8.6 FL (6.5-10.1) Neutrophils (%) (Auto) 70.2 % (45.0-75.0) Lymphocytes (%) (Auto) 18.4 % (20.0-45.0) L Monocytes (%) (Auto) 9.9 % (1.0-10.0) Eosinophils (%) (Auto) 0.5 % (0.0-3.0) Basophils (%) (Auto) 1.0 % (0.0-2.0) Sodium Level 135 MMOL/L (136-145) L Potassium Level 3.3 MMOL/L (3.5-5.1) L Chloride Level 102 MMOL/L (98-107) Carbon Dioxide Level 25 MMOL/L (21-32) Anion Gap 9 mmol/L (5-15) Blood Urea Nitrogen 5 mg/dL (7-18) L Creatinine 0.8 MG/DL (0.55-1.30) Estimat Glomerular Filtration Rate > 60 mL/min (>60) Glucose Level 104 MG/DL (74-106) Calcium Level 8.0 MG/DL (8.5-10.1) L Height (Feet): 5 Height (Inches): 5.00 Weight (Pounds): 180 General Appearance: WD/WN, no apparent distress, alert Cardiovascular: normal rate Respiratory/Chest: normal breath sounds, no respiratory distress Abdominal Exam: normal bowel sounds, non tender, soft Extremities: normal range of motion, non-tender Ramonita Villa N.PSanjana Nov 05, 2017 12:15
[2017-11-05] MEDS ORDERED: Potassium Chloride 40 MEQ in Sodium Chloride 500ML 550 ML IVPB ONE (13:00)
[2017-11-05 15:20] VITALS: BP 130/82
[2017-11-05 19:54] VITALS: BP 135/89
[2017-11-06] VITALS: BP 135/86
[2017-11-06] MEDS: Morphine Sulfate 4mg/ml Inj IVP PRN ×6 (02:32→22:58)
[2017-11-06 04:00] VITALS: BP 128/85
[2017-11-06 07:24] LABS: BASOPHILS % (AUTO) 0.7 % (0.0-2.0); EOSINOPHILS % (AUTO) 1.4 % (0.0-3.0); HEMATOCRIT 37.2 % (42.0-52.0); HEMOGLOBIN 12.8 G/DL (14.2-18.0); LYMPHOCYTES % (AUTO) 20.5 % (20.0-45.0); MEAN CORPUSCULAR VOLUME 82 FL (80-99); MONOCYTES % (AUTO) 8.3 % (1.0-10.0); NEUTROPHILS % (AUTO) 69.2 % (45.0-75.0); PLATELET COUNT 173 K/UL (150-450); RED BLOOD COUNT 4.53 M/UL (4.70-6.10); RED CELL DISTRIBUTION WIDTH 14.5 % (11.6-14.8); WHITE BLOOD COUNT 8.4 K/UL (4.8-10.8)
[2017-11-06 07:44] LABS: ANION GAP 7 mmol/L (5-15); BLOOD UREA NITROGEN 5 mg/dL (7-18); CALCIUM 8.4 MG/DL (8.5-10.1); CARBON DIOXIDE 25 MMOL/L (21-32); CHLORIDE 102 MMOL/L (98-107); CREATININE 0.9 MG/DL (0.55-1.30); POTASSIUM 4.2 MMOL/L (3.5-5.1); SODIUM 134 MMOL/L (136-145)
[2017-11-06 07:56] VITALS: BP 130/82
[2017-11-06] MEDS: Nystatin Susp 500,000 units/5ml ORAL SCH ×4 (08:37→21:09)
[2017-11-06] MEDS: Lisinopril 20mg tab ORAL SCH (08:38)
[2017-11-06] MEDS: Pantoprazole Inj IVP SCH (08:39)
[2017-11-06] MEDS: Metoprolol Tartrate 50mg tab ORAL SCH ×2 (08:39→17:25)
[2017-11-06] MEDS: Bactrim-DS 1 tab ORAL SCH (08:39)
[2017-11-06] MEDS: Heparin 5000 units/ml inj SUBQ SCH ×2 (08:41→21:11)
[2017-11-06 11:51] VITALS: BP 127/76
--- NOTE | 2017-11-06 13:18 | General Progress Note ---
Assessment/Plan Problem List: (1) HIV (human immunodeficiency virus infection) ICD Codes: Z21 - HIV (human immunodeficiency virus infection) SNOMED: 22267704 (2) Candidiasis, esophageal ICD Codes: B37.81 - Candidal esophagitis SNOMED: 27709280 (3) Esophageal ulcer ICD Codes: K22.10 - Ulcer of esophagus without bleeding SNOMED: 29125282 (4) Esophagitis ICD Codes: K20.9 - Esophagitis, unspecified SNOMED: 31545866 (5) GERD (gastroesophageal reflux disease) ICD Codes: K21.9 - Gastro-esophageal reflux disease without esophagitis SNOMED: 165340815 (6) Thrush ICD Codes: B37.0 - Candidal stomatitis SNOMED: 71109085 Assessment/Plan SUMMARY OF FINDINGS: 1. Severe miguel infection of the oral cavity and also esophagus. 2. Multiple ulcerations of the distal esophagus suspicious for HSV versus CMV. CMV IgG ab positive HSV I IgG Ab positive PLAN: Diflucan IV 200 mg daily for 10 days. FLD, adv as tolerated pain mgmt abx per ID fu labs fu surg path Subjective ROS Limited/Unobtainable: Yes Allergies: Coded Allergies: No Known Allergies (Unverified , 09/08/13) Subjective no event Objective Last 24 Hour Vital Signs Date Time Temp Pulse Resp B/P (MAP) Pulse Ox O2 Delivery O2 Flow Rate FiO2 11/06/17 11:51 97.5 66 20 127/76 93 97.5 11/06/17 08:39 71 130/82 11/06/17 08:38 130/82 11/06/17 07:56 98.2 71 20 130/82 96 98.2 11/06/17 07:37 99.3 11/06/17 06:04 99.3 11/06/17 04:00 99.3 68 17 128/85 95 Room Air 99.3 11/06/17 02:32 97.9 11/06/17 00:00 97.9 65 20 135/86 95 Room Air 97.9 11/05/17 22:30 98.6 11/05/17 19:54 98.6 66 20 135/89 97 Room Air 98.6 11/05/17 17:16 98.1 11/05/17 17:16 64 130/82 11/05/17 15:20 98.1 64 20 130/82 97 98.1 Intake and Output 11/05/17 11/06/17 19:00 07:00 Intake Total 100 ml Output Total 0 ml Balance 100 ml 0 ml Intake Oral 100 ml Stool Total 0 ml # Voids 2 4 # Bowel Movements 1 Laboratory Tests 11/05/17 18:00: Coccidioides Antibody (Comp Fix) [Pending], Cryptococcus Antigen [Pending] 11/06/17 05:40: White Blood Count 8.4, Red Blood Count 4.53L, Hemoglobin 12.8L, Hematocrit 37.2L , Mean Corpuscular Volume 82, Mean Corpuscular Hemoglobin 28.3, Mean Corpuscular Hemoglobin Concent 34.4, Red Cell Distribution Width 14.5, Platelet Count 173, Mean Platelet Volume 8.9, Neutrophils (%) (Auto) 69.2, Lymphocytes (% ) (Auto) 20.5, Monocytes (%) (Auto) 8.3, Eosinophils (%) (Auto) 1.4, Basophils ( %) (Auto) 0.7, Sodium Level 134L, Potassium Level 4.2, Chloride Level 102, Carbon Dioxide Level 25, Anion Gap 7, Blood Urea Nitrogen 5L, Creatinine 0.9, Estimat Glomerular Filtration Rate > 60, Glucose Level 76, Calcium Level 8.4L Height (Feet): 5 Height (Inches): 5.00 Weight (Pounds): 180 General Appearance: alert EENT: normal ENT inspection Neck: supple Cardiovascular: normal rate Respiratory/Chest: decreased breath sounds Abdomen: normal bowel sounds, non tender, soft Extremities: non-tender ROOSEVELT ARIAS Nov 06, 2017 13:18
[2017-11-06] MEDS: D5 1/2NS 1,000 ML IV SCH ×3 (13:36→16:00)
--- NOTE | 2017-11-06 15:17 | Pulmonology Progress Note ---
Assessment/Plan Problems: (1) GERD (gastroesophageal reflux disease) (2) HIV (human immunodeficiency virus infection) (3) Cardiomyopathy (4) EF of 20% Assessment/Plan decrease iv fluids advance diet improving slowly continue abx symptomatic treatment f/u by GI and ID dc planning in 1-2 days Subjective ROS Limited/Unobtainable: No Constitutional: Reports: no symptoms HEENT: Repors: no symptoms Respiratory: Reports: no symptoms Allergies: Coded Allergies: No Known Allergies (Unverified , 09/08/13) Objective Last 24 Hour Vital Signs Date Time Temp Pulse Resp B/P (MAP) Pulse Ox O2 Delivery O2 Flow Rate FiO2 11/06/17 11:51 97.5 66 20 127/76 93 97.5 11/06/17 08:39 71 130/82 11/06/17 08:38 130/82 11/06/17 07:56 98.2 71 20 130/82 96 98.2 11/06/17 07:37 99.3 11/06/17 06:04 99.3 11/06/17 04:00 99.3 68 17 128/85 95 Room Air 99.3 11/06/17 02:32 97.9 11/06/17 00:00 97.9 65 20 135/86 95 Room Air 97.9 11/05/17 22:30 98.6 11/05/17 19:54 98.6 66 20 135/89 97 Room Air 98.6 11/05/17 17:16 98.1 11/05/17 17:16 64 130/82 11/05/17 15:20 98.1 64 20 130/82 97 98.1 Intake and Output 11/05/17 11/06/17 19:00 07:00 Intake Total 100 ml Output Total 0 ml Balance 100 ml 0 ml Intake Oral 100 ml Stool Total 0 ml # Voids 2 4 # Bowel Movements 1 Objective General Appearance: WD/WN Lines, tubes and drains: peripheral HEENT: normocephalic, atraumatic Neck: non-tender, normal alignment Respiratory/Chest: chest wall non-tender, lungs clear Breasts: no masses Cardiovascular/Chest: normal peripheral pulses Abdomen: normal bowel sounds, non tender Genitourinary/Rectal: normal genital exam Extremities: normal range of motion Skin Exam: normal pigmentation Laboratory Tests 11/05/17 18:00: Coccidioides Antibody (Comp Fix) [Pending], Cryptococcus Antigen [Pending] 11/06/17 05:40: White Blood Count 8.4, Red Blood Count 4.53L, Hemoglobin 12.8L, Hematocrit 37.2L , Mean Corpuscular Volume 82, Mean Corpuscular Hemoglobin 28.3, Mean Corpuscular Hemoglobin Concent 34.4, Red Cell Distribution Width 14.5, Platelet Count 173, Mean Platelet Volume 8.9, Neutrophils (%) (Auto) 69.2, Lymphocytes (% ) (Auto) 20.5, Monocytes (%) (Auto) 8.3, Eosinophils (%) (Auto) 1.4, Basophils ( %) (Auto) 0.7, Sodium Level 134L, Potassium Level 4.2, Chloride Level 102, Carbon Dioxide Level 25, Anion Gap 7, Blood Urea Nitrogen 5L, Creatinine 0.9, Estimat Glomerular Filtration Rate > 60, Glucose Level 76, Calcium Level 8.4L Current Medications Medications (Trade) Dose Ordered Sig/Beau Route PRN Reason Start Time Stop Time Status Last Admin Dose Admin Acetaminophen (Tylenol) 650 mg Q4H PRN ORAL fever 11/02/17 15:00 12/02/17 14:59 Al Hydroxide/Mg Hydroxide (Mylanta II) 30 ml Q6H PRN ORAL dyspepsia 11/02/17 15:00 12/02/17 14:59 Dextrose (Dextrose 50%) 25 ml STAT PRN IV Hypoglycemia BS 60-69 11/02/17 15:00 12/02/17 14:59 Dextrose (Dextrose 50%) 50 ml STAT PRN IV Hypoglycemia BS<60 11/02/17 15:45 12/02/17 15:44 Dextrose/Sodium Chloride 1,000 ml @ 75 mls/hr [id number] IV 11/02/17 16:00 12/02/17 15:59 11/06/17 13:36 Diphenhydramine HCl (Benadryl) 25 mg Q6H PRN ORAL Itching/Pruritis 11/02/17 15:00 12/02/17 14:59 Famotidine (Pepcid I.v.) 20 mg QHS IVP 11/02/17 21:00 12/02/17 20:59 11/04/17 21:01 Fluconazole/ Sodium Chloride 100 ml @ 100 mls/hr Q24H IV 11/03/17 12:00 11/10/17 11:59 11/06/17 12:05 Heparin Sodium (Porcine) (Heparin 5000 units/ml) 5,000 units EVERY 12 HOURS SUBQ 11/02/17 21:00 12/02/17 20:59 11/06/17 08:41 Lisinopril (Prinivil) 40 mg DAILY ORAL 11/03/17 09:00 12/03/17 08:59 11/06/17 08:38 Metoprolol Tartrate (Lopressor) 50 mg BID ORAL 11/02/17 18:00 12/02/17 17:59 11/06/17 08:39 Morphine Sulfate (Morphine Sulfate) 2 mg EVERY 4 HOURS PRN IVP Severe Pain (Pain Scale 7-10) 11/02/17 16:00 11/09/17 15:59 11/06/17 14:48 Nitroglycerin (Ntg) 0.4 mg Q5M X 3 DOSES PRN SL Prn Chest Pain 11/02/17 15:00 12/02/17 14:59 11/03/17 08:15 Nystatin (Nystatin) 5 ml QID ORAL 11/02/17 18:00 11/09/17 17:59 11/06/17 13:36 Ondansetron HCl (Zofran) 4 mg Q6H PRN IVP Nausea & Vomiting 11/02/17 15:00 12/02/17 14:59 11/04/17 21:01 Pantoprazole (Protonix) 40 mg DAILY IVP 11/03/17 09:00 12/03/17 08:59 11/06/17 08:39 Polyethylene Glycol (Miralax) 17 gm HSPRN PRN ORAL Constipation 11/02/17 15:00 12/02/17 14:59 Temazepam (Restoril) 15 mg HSPRN PRN ORAL Insomnia 11/02/17 15:00 11/09/17 14:59 11/05/17 02:54 Trimethoprim/ Sulfamethoxazole (Bactrim-DS) 1 tab DAILY ORAL 11/05/17 09:00 11/12/17 08:59 11/06/17 08:39 Valganciclovir (Valcyte) 900 mg Q12HR ORAL 11/04/17 21:15 12/04/17 13:59 11/06/17 08:37 Lyn Wesley MD Nov 06, 2017 15:17
[2017-11-06 15:46] VITALS: BP 123/83
[2017-11-06 20:00] VITALS: BP 133/72
[2017-11-07 00:20] VITALS: BP 130/65
[2017-11-07] MEDS: Mylanta II UD 30ml ORAL PRN ×2 (01:20→22:54)
[2017-11-07] MEDS: Morphine Sulfate 4mg/ml Inj IVP PRN ×5 (03:03→21:17)
[2017-11-07] MEDS: D5 1/2NS 1,000 ML IV SCH ×2 (03:03→22:48)
[2017-11-07 04:16] VITALS: BP 125/81
--- NOTE | 2017-11-07 07:31 | General Progress Note ---
Assessment/Plan Problem List: (1) HIV (human immunodeficiency virus infection) ICD Codes: Z21 - HIV (human immunodeficiency virus infection) SNOMED: 51215989 (2) Candidiasis, esophageal ICD Codes: B37.81 - Candidal esophagitis SNOMED: 55825330 (3) Esophageal ulcer ICD Codes: K22.10 - Ulcer of esophagus without bleeding SNOMED: 23013745 (4) Esophagitis ICD Codes: K20.9 - Esophagitis, unspecified SNOMED: 61765908 (5) GERD (gastroesophageal reflux disease) ICD Codes: K21.9 - Gastro-esophageal reflux disease without esophagitis SNOMED: 803455967 (6) Thrush ICD Codes: B37.0 - Candidal stomatitis SNOMED: 47444582 Assessment/Plan SUMMARY OF FINDINGS: 1. Severe miguel infection of the oral cavity and also esophagus. 2. Multiple ulcerations of the distal esophagus suspicious for HSV versus CMV. CMV IgG ab positive HSV I IgG Ab positive PLAN: Diflucan IV 200 mg daily for 10 days. pain mgmt abx per ID fu labs fu surg path Subjective ROS Limited/Unobtainable: Yes Allergies: Coded Allergies: No Known Allergies (Unverified , 09/08/13) Subjective no event Objective Last 24 Hour Vital Signs Date Time Temp Pulse Resp B/P (MAP) Pulse Ox O2 Delivery O2 Flow Rate FiO2 11/07/17 05:07 98.4 11/07/17 04:22 Room Air 11/07/17 04:16 100.4 78 18 125/81 96 100.4 11/07/17 04:08 100.4 11/07/17 03:33 99.1 11/07/17 03:03 99.1 11/07/17 00:58 Room Air 11/07/17 00:20 99.1 70 18 130/65 100 99.1 11/06/17 22:58 98.8 11/06/17 22:13 98.8 Room Air 98.8 11/06/17 21:09 100.2 11/06/17 20:00 100.2 74 17 133/72 100 100.2 11/06/17 17:25 72 123/83 11/06/17 15:46 98.2 72 20 123/83 95 98.2 11/06/17 11:51 97.5 66 20 127/76 93 97.5 11/06/17 08:39 71 130/82 11/06/17 08:38 130/82 11/06/17 07:56 98.2 71 20 130/82 96 98.2 Intake and Output 11/06/17 11/07/17 19:00 07:00 Intake Total 270 ml 980 ml Balance 270 ml 980 ml Intake Oral 220 ml 480 ml IV Total 50 ml 500 ml # Voids 5 4 Laboratory Tests 11/07/17 05:50: White Blood Count [Pending], Red Blood Count [Pending], Hemoglobin [Pending], Hematocrit [Pending], Mean Corpuscular Volume [Pending], Mean Corpuscular Hemoglobin [Pending], Mean Corpuscular Hemoglobin Concent [Pending], Red Cell Distribution Width [Pending], Platelet Count [Pending], Mean Platelet Volume [ Pending], Neutrophils (%) (Auto) [Pending], Lymphocytes (%) (Auto) [Pending], Monocytes (%) (Auto) [Pending], Eosinophils (%) (Auto) [Pending], Basophils (%) (Auto) [Pending], Sodium Level [Pending], Potassium Level [Pending], Chloride Level [Pending], Carbon Dioxide Level [Pending], Blood Urea Nitrogen [Pending], Creatinine [Pending], Estimat Glomerular Filtration Rate [Pending], Glucose Level [Pending], Calcium Level [Pending], Phosphorus Level [Pending], Magnesium Level [Pending], Total Bilirubin [Pending], Aspartate Amino Transf (AST/SGOT) [ Pending], Alanine Aminotransferase (ALT/SGPT) [Pending], Alkaline Phosphatase [ Pending], Total Protein [Pending], Albumin [Pending], Globulin [Pending] Height (Feet): 5 Height (Inches): 5.00 Weight (Pounds): 180 General Appearance: alert EENT: normal ENT inspection Neck: supple Cardiovascular: normal rate Respiratory/Chest: decreased breath sounds Abdomen: normal bowel sounds, non tender, soft Extremities: non-tender ROOSEVELT ARIAS Nov 07, 2017 07:31
[2017-11-07 07:46] LABS: BASOPHILS % (AUTO) 0.5 % (0.0-2.0); EOSINOPHILS % (AUTO) 1.5 % (0.0-3.0); HEMATOCRIT 36.2 % (42.0-52.0); HEMOGLOBIN 12.3 G/DL (14.2-18.0); LYMPHOCYTES % (AUTO) 16.2 % (20.0-45.0); MEAN CORPUSCULAR VOLUME 83 FL (80-99); MONOCYTES % (AUTO) 8.5 % (1.0-10.0); NEUTROPHILS % (AUTO) 73.4 % (45.0-75.0); PLATELET COUNT 157 K/UL (150-450); RED BLOOD COUNT 4.37 M/UL (4.70-6.10); RED CELL DISTRIBUTION WIDTH 15.1 % (11.6-14.8); WHITE BLOOD COUNT 10.7 K/UL (4.8-10.8)
[2017-11-07 07:58] LABS: ALANINE AMINOTRANSFERASE 30 U/L (12-78); ALBUMIN 2.3 G/DL (3.4-5.0); ALBUMIN/GLOBULIN RATIO 0.5 (1.0-2.7); ALKALINE PHOSPHATASE 67 U/L (46-116); ANION GAP 6 mmol/L (5-15); ASPARTATE AMINO TRANSFERASE 25 U/L (15-37); BILIRUBIN,TOTAL 0.5 MG/DL (0.2-1.0); BLOOD UREA NITROGEN 4 mg/dL (7-18); CARBON DIOXIDE 26 MMOL/L (21-32); CHLORIDE 100 MMOL/L (98-107); CREATININE 0.9 MG/DL (0.55-1.30); PHOSPHORUS 2.5 MG/DL (2.5-4.9); POTASSIUM 3.6 MMOL/L (3.5-5.1); SODIUM 132 MMOL/L (136-145)
[2017-11-07 08:00] VITALS: BP 115/70
[2017-11-07] MEDS: Bactrim-DS 1 tab ORAL SCH (08:19)
[2017-11-07] MEDS: Pantoprazole Inj IVP SCH (08:19)
[2017-11-07] MEDS: Lisinopril 20mg tab ORAL SCH (08:20)
[2017-11-07] MEDS: Metoprolol Tartrate 50mg tab ORAL SCH ×2 (08:20→17:15)
[2017-11-07] MEDS: Nystatin Susp 500,000 units/5ml ORAL SCH ×4 (08:20→21:07)
[2017-11-07] MEDS: Heparin 5000 units/ml inj SUBQ SCH ×2 (08:22→21:11)
[2017-11-07 12:00] VITALS: BP 118/75
--- NOTE | 2017-11-07 14:20 | Pulmonology Progress Note ---
Assessment/Plan Problems: (1) GERD (gastroesophageal reflux disease) (2) HIV (human immunodeficiency virus infection) (3) Cardiomyopathy (4) EF of 20% Assessment/Plan decrease iv fluids advance diet improving slowly continue abx symptomatic treatment f/u by GI and ID dc planning in 1-2 days Subjective ROS Limited/Unobtainable: No Constitutional: Reports: no symptoms Respiratory: Reports: no symptoms Allergies: Coded Allergies: No Known Allergies (Unverified , 09/08/13) Objective Last 24 Hour Vital Signs Date Time Temp Pulse Resp B/P (MAP) Pulse Ox O2 Delivery O2 Flow Rate FiO2 11/07/17 13:31 98.1 11/07/17 13:01 98.1 11/07/17 12:00 98.1 61 20 118/75 97 98.1 11/07/17 08:21 98.4 11/07/17 08:20 70 113/70 11/07/17 08:20 113/70 11/07/17 08:00 97.9 70 20 115/70 94 97.9 11/07/17 05:07 98.4 11/07/17 04:22 Room Air 11/07/17 04:16 100.4 78 18 125/81 96 100.4 11/07/17 04:08 100.4 11/07/17 03:03 99.1 11/07/17 00:58 Room Air 11/07/17 00:20 99.1 70 18 130/65 100 99.1 11/06/17 22:58 98.8 11/06/17 22:13 98.8 Room Air 98.8 11/06/17 21:09 100.2 11/06/17 20:00 100.2 74 17 133/72 100 100.2 11/06/17 17:25 72 123/83 11/06/17 15:46 98.2 72 20 123/83 95 98.2 Intake and Output 11/06/17 11/07/17 19:00 07:00 Intake Total 270 ml 980 ml Balance 270 ml 980 ml Intake Oral 220 ml 480 ml IV Total 50 ml 500 ml # Voids 5 4 Objective General Appearance: WD/WN Lines, tubes and drains: peripheral HEENT: normocephalic, atraumatic Neck: non-tender, normal alignment Respiratory/Chest: chest wall non-tender, lungs clear Breasts: no masses Cardiovascular/Chest: normal peripheral pulses Abdomen: normal bowel sounds, non tender Genitourinary/Rectal: normal genital exam Extremities: normal range of motion Skin Exam: normal pigmentation Laboratory Tests 11/07/17 05:50: White Blood Count 10.7, Red Blood Count 4.37L, Hemoglobin 12.3L, Hematocrit 36.2L, Mean Corpuscular Volume 83, Mean Corpuscular Hemoglobin 28.0, Mean Corpuscular Hemoglobin Concent 33.8, Red Cell Distribution Width 15.1H, Platelet Count 157, Mean Platelet Volume 8.4, Neutrophils (%) (Auto) 73.4, Lymphocytes (%) (Auto) 16.2L, Monocytes (%) (Auto) 8.5, Eosinophils (%) (Auto) 1.5, Basophils (%) (Auto) 0.5, Sodium Level 132L, Potassium Level 3.6, Chloride Level 100, Carbon Dioxide Level 26, Anion Gap 6, Blood Urea Nitrogen 4L, Creatinine 0.9, Estimat Glomerular Filtration Rate > 60, Glucose Level 91, Calcium Level 8.0L, Phosphorus Level 2.5, Magnesium Level 1.5L, Total Bilirubin 0.5, Aspartate Amino Transf (AST/SGOT) 25, Alanine Aminotransferase (ALT/SGPT) 30, Alkaline Phosphatase 67, Total Protein 6.6, Albumin 2.3L, Globulin 4.3, Albumin/Globulin Ratio 0.5L Current Medications Medications (Trade) Dose Ordered Sig/Beau Route PRN Reason Start Time Stop Time Status Last Admin Dose Admin Acetaminophen (Tylenol) 650 mg Q4H PRN ORAL fever 11/02/17 15:00 12/02/17 14:59 11/07/17 04:08 Al Hydroxide/Mg Hydroxide (Mylanta II) 30 ml Q6H PRN ORAL dyspepsia 11/02/17 15:00 12/02/17 14:59 11/07/17 01:20 Dextrose (Dextrose 50%) 25 ml STAT PRN IV Hypoglycemia BS 60-69 11/02/17 15:00 12/02/17 14:59 Dextrose (Dextrose 50%) 50 ml STAT PRN IV Hypoglycemia BS<60 11/02/17 15:45 12/02/17 15:44 Dextrose/Sodium Chloride 1,000 ml @ 50 mls/hr Q20H IV 11/06/17 16:00 5/10/18 15:59 11/07/17 03:03 Diphenhydramine HCl (Benadryl) 25 mg Q6H PRN ORAL Itching/Pruritis 11/02/17 15:00 12/02/17 14:59 Famotidine (Pepcid I.v.) 20 mg QHS IVP 11/02/17 21:00 12/02/17 20:59 11/06/17 22:08 Fluconazole/ Sodium Chloride 100 ml @ 100 mls/hr Q24H IV 11/03/17 12:00 11/10/17 11:59 11/07/17 11:00 Heparin Sodium (Porcine) (Heparin 5000 units/ml) 5,000 units EVERY 12 HOURS SUBQ 11/02/17 21:00 12/02/17 20:59 11/07/17 08:22 Lisinopril (Prinivil) 40 mg DAILY ORAL 11/03/17 09:00 12/03/17 08:59 11/07/17 08:20 Metoprolol Tartrate (Lopressor) 50 mg BID ORAL 11/02/17 18:00 12/02/17 17:59 11/07/17 08:20 Morphine Sulfate (Morphine Sulfate) 2 mg EVERY 4 HOURS PRN IVP Severe Pain (Pain Scale 7-10) 11/02/17 16:00 11/09/17 15:59 11/07/17 13:01 Nitroglycerin (Ntg) 0.4 mg Q5M X 3 DOSES PRN SL Prn Chest Pain 11/02/17 15:00 12/02/17 14:59 11/03/17 08:15 Nystatin (Nystatin) 5 ml QID ORAL 11/02/17 18:00 11/09/17 17:59 11/07/17 12:25 Ondansetron HCl (Zofran) 4 mg Q6H PRN IVP Nausea & Vomiting 11/02/17 15:00 12/02/17 14:59 11/06/17 17:58 Pantoprazole (Protonix) 40 mg DAILY IVP 11/03/17 09:00 12/03/17 08:59 11/07/17 08:19 Polyethylene Glycol (Miralax) 17 gm HSPRN PRN ORAL Constipation 11/02/17 15:00 12/02/17 14:59 Temazepam (Restoril) 15 mg HSPRN PRN ORAL Insomnia 11/02/17 15:00 11/09/17 14:59 11/05/17 02:54 Trimethoprim/ Sulfamethoxazole (Bactrim-DS) 1 tab DAILY ORAL 11/05/17 09:00 11/12/17 08:59 11/07/17 08:19 Valganciclovir (Valcyte) 900 mg Q12HR ORAL 11/04/17 21:15 12/04/17 13:59 11/07/17 08:21 Lyn Wesley MD Nov 07, 2017 14:20
[2017-11-07 16:00] VITALS: BP 129/82
[2017-11-07 20:00] VITALS: BP 122/76
--- NOTE | 2017-11-07 22:38 | Infectious Diseases Prog Note ---
Assessment/Plan Assessment/Plan ASSESSMENT: The patient is a 47-year-old male with, low garde fever Oral thrush. Esophagitis, candidiasis, thrush (CMV versus HSV). Status post EGD, pathology : pending. HIV/AIDS noncompliant, CD4 count of 101 ( 08/2017) History of HIV, noncompliant with taking his medication, CD4 in 2013 was 283. Hepatitis panel has been negative in 2014. History of CHF. Hypertension. Diverticulosis Anxiety/depression. PLAN: continue the patient on Diflucan d # and Valcyte d# cont patient on Bactrim for PCP prophylaxis. restart HIV medication as outpatient. Monitor CBC and BMP. Monitor chest x-ray. cryptococcus antigen coccidio AB AFB and fungal blood culture. Subjective Allergies: Coded Allergies: No Known Allergies (Unverified , 09/08/13) Subjective feeling better Objective Vital Signs Last 24 Hour Vital Signs Date Time Temp Pulse Resp B/P (MAP) Pulse Ox O2 Delivery O2 Flow Rate FiO2 11/07/17 20:00 98.6 60 20 122/76 96 Room Air 98.6 11/07/17 17:45 98.2 11/07/17 17:15 98.2 11/07/17 17:15 62 129/82 11/07/17 16:00 98.2 62 20 129/82 98 98.2 11/07/17 13:01 98.1 11/07/17 12:00 98.1 61 20 118/75 97 98.1 11/07/17 08:21 98.4 11/07/17 08:20 70 113/70 11/07/17 08:20 113/70 11/07/17 08:00 97.9 70 20 115/70 94 97.9 11/07/17 05:07 98.4 11/07/17 04:22 Room Air 11/07/17 04:16 100.4 78 18 125/81 96 100.4 11/07/17 04:08 100.4 11/07/17 03:03 99.1 11/07/17 00:58 Room Air 11/07/17 00:20 99.1 70 18 130/65 100 99.1 11/06/17 22:58 98.8 Height (Feet): 5 Height (Inches): 5.00 Weight (Pounds): 180 HEENT: anicteric Respiratory/Chest: no respiratory distress Cardiovascular: regular rhythm Abdomen: no organomegaly Laboratory Tests Test 11/07/17 05:50 White Blood Count 10.7 K/UL (4.8-10.8) Red Blood Count 4.37 M/UL (4.70-6.10) L Hemoglobin 12.3 G/DL (14.2-18.0) L Hematocrit 36.2 % (42.0-52.0) L Mean Corpuscular Volume 83 FL (80-99) Mean Corpuscular Hemoglobin 28.0 PG (27.0-31.0) Mean Corpuscular Hemoglobin Concent 33.8 G/DL (32.0-36.0) Red Cell Distribution Width 15.1 % (11.6-14.8) H Platelet Count 157 K/UL (150-450) Mean Platelet Volume 8.4 FL (6.5-10.1) Neutrophils (%) (Auto) 73.4 % (45.0-75.0) Lymphocytes (%) (Auto) 16.2 % (20.0-45.0) L Monocytes (%) (Auto) 8.5 % (1.0-10.0) Eosinophils (%) (Auto) 1.5 % (0.0-3.0) Basophils (%) (Auto) 0.5 % (0.0-2.0) Sodium Level 132 MMOL/L (136-145) L Potassium Level 3.6 MMOL/L (3.5-5.1) Chloride Level 100 MMOL/L (98-107) Carbon Dioxide Level 26 MMOL/L (21-32) Anion Gap 6 mmol/L (5-15) Blood Urea Nitrogen 4 mg/dL (7-18) L Creatinine 0.9 MG/DL (0.55-1.30) Estimat Glomerular Filtration Rate > 60 mL/min (>60) Glucose Level 91 MG/DL (74-106) Calcium Level 8.0 MG/DL (8.5-10.1) L Phosphorus Level 2.5 MG/DL (2.5-4.9) Magnesium Level 1.5 MG/DL (1.8-2.4) L Total Bilirubin 0.5 MG/DL (0.2-1.0) Aspartate Amino Transf (AST/SGOT) 25 U/L (15-37) Alanine Aminotransferase (ALT/SGPT) 30 U/L (12-78) Alkaline Phosphatase 67 U/L (46-116) Total Protein 6.6 G/DL (6.4-8.2) Albumin 2.3 G/DL (3.4-5.0) L Globulin 4.3 g/dL Albumin/Globulin Ratio 0.5 (1.0-2.7) L Current Medications Medications (Trade) Dose Ordered Sig/Beau Route PRN Reason Start Time Stop Time Status Last Admin Dose Admin Acetaminophen (Tylenol) 650 mg Q4H PRN ORAL fever 11/02/17 15:00 12/02/17 14:59 11/07/17 04:08 Al Hydroxide/Mg Hydroxide (Mylanta II) 30 ml Q6H PRN ORAL dyspepsia 11/02/17 15:00 12/02/17 14:59 11/07/17 01:20 Dextrose (Dextrose 50%) 25 ml STAT PRN IV Hypoglycemia BS 60-69 11/02/17 15:00 12/02/17 14:59 Dextrose (Dextrose 50%) 50 ml STAT PRN IV Hypoglycemia BS<60 11/02/17 15:45 12/02/17 15:44 Dextrose/Sodium Chloride 1,000 ml @ 50 mls/hr Q20H IV 11/06/17 16:00 12/02/17 15:59 11/07/17 03:03 Diphenhydramine HCl (Benadryl) 25 mg Q6H PRN ORAL Itching/Pruritis 11/02/17 15:00 12/02/17 14:59 Famotidine (Pepcid I.v.) 20 mg QHS IVP 11/02/17 21:00 12/02/17 20:59 11/07/17 21:01 Fluconazole/ Sodium Chloride 100 ml @ 100 mls/hr Q24H IV 11/03/17 12:00 11/10/17 11:59 11/07/17 11:00 Heparin Sodium (Porcine) (Heparin 5000 units/ml) 5,000 units EVERY 12 HOURS SUBQ 11/02/17 21:00 12/02/17 20:59 11/07/17 21:11 Lisinopril (Prinivil) 40 mg DAILY ORAL 11/03/17 09:00 12/03/17 08:59 11/07/17 08:20 Metoprolol Tartrate (Lopressor) 50 mg BID ORAL 11/02/17 18:00 12/02/17 17:59 11/07/17 17:15 Morphine Sulfate (Morphine Sulfate) 2 mg EVERY 4 HOURS PRN IVP Severe Pain (Pain Scale 7-10) 11/02/17 16:00 11/09/17 15:59 11/07/17 21:17 Nitroglycerin (Ntg) 0.4 mg Q5M X 3 DOSES PRN SL Prn Chest Pain 11/02/17 15:00 12/02/17 14:59 11/03/17 08:15 Nystatin (Nystatin) 5 ml QID ORAL 11/02/17 18:00 11/09/17 17:59 11/07/17 21:07 Ondansetron HCl (Zofran) 4 mg Q6H PRN IVP Nausea & Vomiting 11/02/17 15:00 12/02/17 14:59 11/06/17 17:58 Pantoprazole (Protonix) 40 mg DAILY IVP 11/03/17 09:00 12/03/17 08:59 11/07/17 08:19 Polyethylene Glycol (Miralax) 17 gm HSPRN PRN ORAL Constipation 11/02/17 15:00 12/02/17 14:59 Temazepam (Restoril) 15 mg HSPRN PRN ORAL Insomnia 11/02/17 15:00 11/09/17 14:59 11/05/17 02:54 Trimethoprim/ Sulfamethoxazole (Bactrim-DS) 1 tab DAILY ORAL 11/05/17 09:00 11/12/17 08:59 11/07/17 08:19 Valganciclovir (Valcyte) 900 mg Q12HR ORAL 11/04/17 21:15 12/04/17 13:59 11/07/17 21:07 Tramaine Wick MD Nov 07, 2017 22:38
[2017-11-07] MEDS ORDERED: D5 1/2NS 1000ml IV ONE (22:49)
[2017-11-08] VITALS: BP 129/79
[2017-11-08] MEDS: Morphine Sulfate 4mg/ml Inj IVP PRN ×4 (02:02→21:45)
[2017-11-08 04:00] VITALS: BP 133/84
[2017-11-08 07:51] LABS: BASOPHILS % (AUTO) 0.6 % (0.0-2.0); EOSINOPHILS % (AUTO) 1.3 % (0.0-3.0); HEMATOCRIT 36.1 % (42.0-52.0); HEMOGLOBIN 12.6 G/DL (14.2-18.0); LYMPHOCYTES % (AUTO) 13.9 % (20.0-45.0); MEAN CORPUSCULAR VOLUME 83 FL (80-99); MONOCYTES % (AUTO) 5.8 % (1.0-10.0); NEUTROPHILS % (AUTO) 78.4 % (45.0-75.0); PLATELET COUNT 169 K/UL (150-450); RED BLOOD COUNT 4.36 M/UL (4.70-6.10); RED CELL DISTRIBUTION WIDTH 14.9 % (11.6-14.8); WHITE BLOOD COUNT 11.7 K/UL (4.8-10.8)
[2017-11-08 07:56] LABS: ALANINE AMINOTRANSFERASE 26 U/L (12-78); ALBUMIN 2.5 G/DL (3.4-5.0); ALBUMIN/GLOBULIN RATIO 0.6 (1.0-2.7); ALKALINE PHOSPHATASE 69 U/L (46-116); ANION GAP 7 mmol/L (5-15); ASPARTATE AMINO TRANSFERASE 25 U/L (15-37); BILIRUBIN,TOTAL 0.4 MG/DL (0.2-1.0); BLOOD UREA NITROGEN 3 mg/dL (7-18); CALCIUM 8.5 MG/DL (8.5-10.1); CARBON DIOXIDE 28 MMOL/L (21-32); CHLORIDE 100 MMOL/L (98-107); CREATININE 0.9 MG/DL (0.55-1.30); PHOSPHORUS 2.3 MG/DL (2.5-4.9); SODIUM 135 MMOL/L (136-145)
[2017-11-08 07:59] VITALS: BP 147/86
[2017-11-08] MEDS: Bactrim-DS 1 tab ORAL SCH (08:46)
[2017-11-08] MEDS: Nystatin Susp 500,000 units/5ml ORAL SCH ×4 (08:46→21:43)
[2017-11-08] MEDS: Pantoprazole Inj IVP SCH (08:46)
[2017-11-08] MEDS: Metoprolol Tartrate 50mg tab ORAL SCH ×2 (08:46→17:31)
[2017-11-08] MEDS: Lisinopril 20mg tab ORAL SCH (08:46)
[2017-11-08] MEDS: Heparin 5000 units/ml inj SUBQ SCH ×2 (08:58→21:46)
--- NOTE | 2017-11-08 10:20 | GI Progress Note ---
Assessment/Plan Problems: (1) Esophageal ulcer ICD Codes: K22.10 - Ulcer of esophagus without bleeding SNOMED: 79608437 (2) Candidiasis, esophageal ICD Codes: B37.81 - Candidal esophagitis SNOMED: 57532676 (3) HIV (human immunodeficiency virus infection) ICD Codes: Z21 - HIV (human immunodeficiency virus infection) SNOMED: 79098247 (4) Thrush ICD Codes: B37.0 - Candidal stomatitis SNOMED: 60586447 (5) CHF exacerbation Status: stable, progressing Status Narrative Discussed with Dr. Coe. Assessment/Plan SUMMARY OF FINDINGS: 1. Severe migeul infection of the oral cavity and also esophagus. 2. Multiple ulcerations of the distal esophagus suspicious for HSV versus CMV. CMV IgG ab positive HSV I IgG Ab positive PLAN: Diflucan IV 200 mg daily for 10 days. pain mgmt abx per ID fu labs fu surg path Subjective Subjective tolerating foods Objective Last 24 Hour Vital Signs Date Time Temp Pulse Resp B/P (MAP) Pulse Ox O2 Delivery O2 Flow Rate FiO2 11/08/17 09:46 99.2 11/08/17 09:17 100.2 11/08/17 08:47 100.2 11/08/17 08:47 100.0 11/08/17 08:46 91 147/86 11/08/17 08:46 147/86 11/08/17 07:59 100.2 91 18 147/86 97 Room Air 100.2 11/08/17 04:00 99.3 82 19 133/84 94 Room Air 99.3 11/08/17 00:00 98.0 64 18 129/79 97 Room Air 98.0 11/07/17 20:00 98.6 60 20 122/76 96 Room Air 98.6 11/07/17 17:15 98.2 11/07/17 17:15 62 129/82 11/07/17 16:00 98.2 62 20 129/82 98 98.2 11/07/17 13:01 98.1 11/07/17 12:00 98.1 61 20 118/75 97 98.1 Intake and Output 11/07/17 11/08/17 19:00 07:00 Intake Total 1450 ml 500 ml Balance 1450 ml 500 ml Intake Oral 800 ml IV Total 650 ml 500 ml # Voids 5 2 # Bowel Movements 1 Laboratory Tests Test 11/08/17 06:10 White Blood Count 11.7 K/UL (4.8-10.8) H Red Blood Count 4.36 M/UL (4.70-6.10) L Hemoglobin 12.6 G/DL (14.2-18.0) L Hematocrit 36.1 % (42.0-52.0) L Mean Corpuscular Volume 83 FL (80-99) Mean Corpuscular Hemoglobin 28.9 PG (27.0-31.0) Mean Corpuscular Hemoglobin Concent 34.9 G/DL (32.0-36.0) Red Cell Distribution Width 14.9 % (11.6-14.8) H Platelet Count 169 K/UL (150-450) Mean Platelet Volume 8.3 FL (6.5-10.1) Neutrophils (%) (Auto) 78.4 % (45.0-75.0) H Lymphocytes (%) (Auto) 13.9 % (20.0-45.0) L Monocytes (%) (Auto) 5.8 % (1.0-10.0) Eosinophils (%) (Auto) 1.3 % (0.0-3.0) Basophils (%) (Auto) 0.6 % (0.0-2.0) Sodium Level 135 MMOL/L (136-145) L Potassium Level 4.0 MMOL/L (3.5-5.1) Chloride Level 100 MMOL/L (98-107) Carbon Dioxide Level 28 MMOL/L (21-32) Anion Gap 7 mmol/L (5-15) Blood Urea Nitrogen 3 mg/dL (7-18) L Creatinine 0.9 MG/DL (0.55-1.30) Estimat Glomerular Filtration Rate > 60 mL/min (>60) Glucose Level 91 MG/DL (74-106) Calcium Level 8.5 MG/DL (8.5-10.1) Phosphorus Level 2.3 MG/DL (2.5-4.9) L Magnesium Level 1.6 MG/DL (1.8-2.4) L Total Bilirubin 0.4 MG/DL (0.2-1.0) Aspartate Amino Transf (AST/SGOT) 25 U/L (15-37) Alanine Aminotransferase (ALT/SGPT) 26 U/L (12-78) Alkaline Phosphatase 69 U/L (46-116) Total Protein 6.7 G/DL (6.4-8.2) Albumin 2.5 G/DL (3.4-5.0) L Globulin 4.2 g/dL Albumin/Globulin Ratio 0.6 (1.0-2.7) L Height (Feet): 5 Height (Inches): 5.00 Weight (Pounds): 180 General Appearance: WD/WN, no apparent distress, alert Cardiovascular: normal rate Respiratory/Chest: normal breath sounds, no respiratory distress Abdominal Exam: normal bowel sounds, non tender, soft Extremities: normal range of motion, non-tender Ramonita Villa N.P. Nov 08, 2017 10:20
[2017-11-08] MEDS ORDERED: D5 1/2NS 1000ml IV ONE (10:35)
[2017-11-08 12:00] VITALS: BP 112/72
--- NOTE | 2017-11-08 15:18 | Pulmonology Progress Note ---
Assessment/Plan Problems: (1) GERD (gastroesophageal reflux disease) (2) HIV (human immunodeficiency virus infection) (3) Cardiomyopathy (4) EF of 20% Assessment/Plan decrease iv fluids advance diet improving slowly continue abx symptomatic treatment f/u by GI and ID Subjective ROS Limited/Unobtainable: No Interval Events: didn't eat lunch at all Allergies: Coded Allergies: No Known Allergies (Unverified , 09/08/13) Objective Last 24 Hour Vital Signs Date Time Temp Pulse Resp B/P (MAP) Pulse Ox O2 Delivery O2 Flow Rate FiO2 11/08/17 12:00 98.1 85 18 112/72 97 Room Air 98.1 11/08/17 09:46 99.2 11/08/17 09:17 100.2 11/08/17 08:47 100.2 11/08/17 08:47 100.0 11/08/17 08:46 91 147/86 11/08/17 08:46 147/86 11/08/17 07:59 100.2 91 18 147/86 97 Room Air 100.2 11/08/17 04:00 99.3 82 19 133/84 94 Room Air 99.3 11/08/17 00:00 98.0 64 18 129/79 97 Room Air 98.0 11/07/17 20:00 98.6 60 20 122/76 96 Room Air 98.6 11/07/17 17:15 98.2 11/07/17 17:15 62 129/82 11/07/17 16:00 98.2 62 20 129/82 98 98.2 Intake and Output 11/07/17 11/08/17 19:00 07:00 Intake Total 1450 ml 500 ml Balance 1450 ml 500 ml Intake Oral 800 ml IV Total 650 ml 500 ml # Voids 5 2 # Bowel Movements 1 Objective General Appearance: WD/WN Lines, tubes and drains: peripheral HEENT: normocephalic, atraumatic Neck: non-tender, normal alignment Respiratory/Chest: chest wall non-tender, lungs clear Breasts: no masses Cardiovascular/Chest: normal peripheral pulses Abdomen: normal bowel sounds, non tender Genitourinary/Rectal: normal genital exam Extremities: normal range of motion Skin Exam: normal pigmentation Laboratory Tests 11/08/17 06:10: White Blood Count 11.7H, Red Blood Count 4.36L, Hemoglobin 12.6L, Hematocrit 36.1L, Mean Corpuscular Volume 83, Mean Corpuscular Hemoglobin 28.9, Mean Corpuscular Hemoglobin Concent 34.9, Red Cell Distribution Width 14.9H, Platelet Count 169, Mean Platelet Volume 8.3, Neutrophils (%) (Auto) 78.4H, Lymphocytes (%) (Auto) 13.9L, Monocytes (%) (Auto) 5.8, Eosinophils (%) (Auto) 1.3, Basophils (%) (Auto) 0.6, Sodium Level 135L, Potassium Level 4.0, Chloride Level 100, Carbon Dioxide Level 28, Anion Gap 7, Blood Urea Nitrogen 3L, Creatinine 0.9, Estimat Glomerular Filtration Rate > 60, Glucose Level 91, Calcium Level 8.5, Phosphorus Level 2.3L, Magnesium Level 1.6L, Total Bilirubin 0.4, Aspartate Amino Transf (AST/SGOT) 25, Alanine Aminotransferase (ALT/SGPT) 26, Alkaline Phosphatase 69, Total Protein 6.7, Albumin 2.5L, Globulin 4.2, Albumin/Globulin Ratio 0.6L Current Medications Medications (Trade) Dose Ordered Sig/Beau Route PRN Reason Start Time Stop Time Status Last Admin Dose Admin Acetaminophen (Tylenol) 650 mg Q4H PRN ORAL fever 11/02/17 15:00 12/02/17 14:59 11/08/17 08:47 Al Hydroxide/Mg Hydroxide (Mylanta II) 30 ml Q6H PRN ORAL dyspepsia 11/02/17 15:00 12/02/17 14:59 11/07/17 22:54 Dextrose (Dextrose 50%) 25 ml STAT PRN IV Hypoglycemia BS 60-69 11/02/17 15:00 12/02/17 14:59 Dextrose (Dextrose 50%) 50 ml STAT PRN IV Hypoglycemia BS<60 11/02/17 15:45 12/02/17 15:44 Dextrose/Sodium Chloride 1,000 ml @ 50 mls/hr Q20H IV 11/06/17 16:00 12/02/17 15:59 11/07/17 22:48 Diphenhydramine HCl (Benadryl) 25 mg Q6H PRN ORAL Itching/Pruritis 11/02/17 15:00 12/02/17 14:59 Famotidine (Pepcid I.v.) 20 mg QHS IVP 11/02/17 21:00 12/02/17 20:59 11/07/17 21:01 Fluconazole/ Sodium Chloride 100 ml @ 100 mls/hr Q24H IV 11/03/17 12:00 11/10/17 11:59 11/08/17 12:36 Heparin Sodium (Porcine) (Heparin 5000 units/ml) 5,000 units EVERY 12 HOURS SUBQ 11/02/17 21:00 12/02/17 20:59 11/08/17 08:58 Lisinopril (Prinivil) 40 mg DAILY ORAL 11/03/17 09:00 12/03/17 08:59 11/08/17 08:46 Metoprolol Tartrate (Lopressor) 50 mg BID ORAL 11/02/17 18:00 12/02/17 17:59 11/08/17 08:46 Morphine Sulfate (Morphine Sulfate) 2 mg EVERY 4 HOURS PRN IVP Severe Pain (Pain Scale 7-10) 11/02/17 16:00 11/09/17 15:59 11/08/17 08:47 Nitroglycerin (Ntg) 0.4 mg Q5M X 3 DOSES PRN SL Prn Chest Pain 11/02/17 15:00 12/02/17 14:59 11/03/17 08:15 Nystatin (Nystatin) 5 ml QID ORAL 11/02/17 18:00 11/09/17 17:59 11/08/17 12:38 Ondansetron HCl (Zofran) 4 mg Q6H PRN IVP Nausea & Vomiting 11/02/17 15:00 12/02/17 14:59 11/08/17 08:46 Pantoprazole (Protonix) 40 mg DAILY IVP 11/03/17 09:00 12/03/17 08:59 11/08/17 08:46 Polyethylene Glycol (Miralax) 17 gm HSPRN PRN ORAL Constipation 11/02/17 15:00 12/02/17 14:59 Temazepam (Restoril) 15 mg HSPRN PRN ORAL Insomnia 11/02/17 15:00 11/09/17 14:59 11/07/17 22:54 Trimethoprim/ Sulfamethoxazole (Bactrim-DS) 1 tab DAILY ORAL 11/05/17 09:00 11/12/17 08:59 11/08/17 08:46 Valganciclovir (Valcyte) 900 mg Q12HR ORAL 11/04/17 21:15 12/04/17 13:59 11/08/17 08:45 Lyn Wesley MD Nov 08, 2017 15:18
[2017-11-08 15:57] VITALS: BP 124/75
--- NOTE | 2017-11-08 19:55 | Infectious Diseases Prog Note ---
Assessment/Plan Assessment/Plan ASSESSMENT: The patient is a 47-year-old male with, low garde fever , SP Oral thrush. Esophagitis, candidiasis, thrush Status post EGD, SP Bx ( Path Neg for CMV and HSV). HIV/AIDS noncompliant, CD4 count of 101 ( 08/2017)=> CD4 221 ( 10/2017) History of HIV, noncompliant with taking his medication, CD4 in 2013 was 283. Hepatitis panel has been negative in 2014. History of CHF. Hypertension. Diverticulosis Anxiety/depression. PLAN: continue the patient on Diflucan d # 6 / 10 and DC Valcyte d# 6 cont patient on Bactrim for PCP prophylaxis. restart HIV medication as outpatient. Monitor CBC and BMP. Monitor chest x-ray. cryptococcus antigen coccidio AB AFB and fungal blood culture. Subjective Constitutional: Denies: no symptoms, fever, chills, fatigue, anorexia, drenching sweats, other Allergies: Coded Allergies: No Known Allergies (Unverified , 09/08/13) Subjective feeling better Objective Vital Signs Last 24 Hour Vital Signs Date Time Temp Pulse Resp B/P (MAP) Pulse Ox O2 Delivery O2 Flow Rate FiO2 11/08/17 17:31 94 124/75 11/08/17 16:05 98.1 11/08/17 15:57 98.1 94 18 124/75 98 Room Air 98.1 11/08/17 15:35 98.1 11/08/17 12:00 98.1 85 18 112/72 97 Room Air 98.1 11/08/17 09:46 99.2 11/08/17 08:47 100.2 11/08/17 08:47 100.0 11/08/17 08:46 91 147/86 11/08/17 08:46 147/86 11/08/17 07:59 100.2 91 18 147/86 97 Room Air 100.2 11/08/17 04:00 99.3 82 19 133/84 94 Room Air 99.3 11/08/17 00:00 98.0 64 18 129/79 97 Room Air 98.0 11/07/17 20:00 98.6 60 20 122/76 96 Room Air 98.6 Height (Feet): 5 Height (Inches): 5.00 Weight (Pounds): 180 HEENT: mucous membranes moist Respiratory/Chest: no respiratory distress Cardiovascular: regularly irregular Abdomen: non distended Laboratory Tests Test 11/08/17 06:10 White Blood Count 11.7 K/UL (4.8-10.8) H Red Blood Count 4.36 M/UL (4.70-6.10) L Hemoglobin 12.6 G/DL (14.2-18.0) L Hematocrit 36.1 % (42.0-52.0) L Mean Corpuscular Volume 83 FL (80-99) Mean Corpuscular Hemoglobin 28.9 PG (27.0-31.0) Mean Corpuscular Hemoglobin Concent 34.9 G/DL (32.0-36.0) Red Cell Distribution Width 14.9 % (11.6-14.8) H Platelet Count 169 K/UL (150-450) Mean Platelet Volume 8.3 FL (6.5-10.1) Neutrophils (%) (Auto) 78.4 % (45.0-75.0) H Lymphocytes (%) (Auto) 13.9 % (20.0-45.0) L Monocytes (%) (Auto) 5.8 % (1.0-10.0) Eosinophils (%) (Auto) 1.3 % (0.0-3.0) Basophils (%) (Auto) 0.6 % (0.0-2.0) Sodium Level 135 MMOL/L (136-145) L Potassium Level 4.0 MMOL/L (3.5-5.1) Chloride Level 100 MMOL/L (98-107) Carbon Dioxide Level 28 MMOL/L (21-32) Anion Gap 7 mmol/L (5-15) Blood Urea Nitrogen 3 mg/dL (7-18) L Creatinine 0.9 MG/DL (0.55-1.30) Estimat Glomerular Filtration Rate > 60 mL/min (>60) Glucose Level 91 MG/DL (74-106) Calcium Level 8.5 MG/DL (8.5-10.1) Phosphorus Level 2.3 MG/DL (2.5-4.9) L Magnesium Level 1.6 MG/DL (1.8-2.4) L Total Bilirubin 0.4 MG/DL (0.2-1.0) Aspartate Amino Transf (AST/SGOT) 25 U/L (15-37) Alanine Aminotransferase (ALT/SGPT) 26 U/L (12-78) Alkaline Phosphatase 69 U/L (46-116) Total Protein 6.7 G/DL (6.4-8.2) Albumin 2.5 G/DL (3.4-5.0) L Globulin 4.2 g/dL Albumin/Globulin Ratio 0.6 (1.0-2.7) L Current Medications Medications (Trade) Dose Ordered Sig/Beau Route PRN Reason Start Time Stop Time Status Last Admin Dose Admin Acetaminophen (Tylenol) 650 mg Q4H PRN ORAL fever 11/02/17 15:00 12/02/17 14:59 11/08/17 08:47 Al Hydroxide/Mg Hydroxide (Mylanta II) 30 ml Q6H PRN ORAL dyspepsia 11/02/17 15:00 12/02/17 14:59 11/07/17 22:54 Dextrose (Dextrose 50%) 25 ml STAT PRN IV Hypoglycemia BS 60-69 11/02/17 15:00 12/02/17 14:59 Dextrose (Dextrose 50%) 50 ml STAT PRN IV Hypoglycemia BS<60 11/02/17 15:45 12/02/17 15:44 Dextrose/Sodium Chloride 1,000 ml @ 50 mls/hr Q20H IV 11/06/17 16:00 12/02/17 15:59 11/07/17 22:48 Diphenhydramine HCl (Benadryl) 25 mg Q6H PRN ORAL Itching/Pruritis 11/02/17 15:00 12/02/17 14:59 Famotidine (Pepcid I.v.) 20 mg QHS IVP 11/02/17 21:00 12/02/17 20:59 11/07/17 21:01 Fluconazole/ Sodium Chloride 100 ml @ 100 mls/hr Q24H IV 11/03/17 12:00 11/10/17 11:59 11/08/17 12:36 Heparin Sodium (Porcine) (Heparin 5000 units/ml) 5,000 units EVERY 12 HOURS SUBQ 11/02/17 21:00 12/02/17 20:59 11/08/17 08:58 Lisinopril (Prinivil) 40 mg DAILY ORAL 11/03/17 09:00 12/03/17 08:59 11/08/17 08:46 Magnesium Sulfate 100 ml @ 100 mls/hr Q1H IVPB 11/08/17 19:00 11/08/17 20:59 Metoprolol Tartrate (Lopressor) 50 mg BID ORAL 11/02/17 18:00 12/02/17 17:59 11/08/17 17:31 Morphine Sulfate (Morphine Sulfate) 2 mg EVERY 4 HOURS PRN IVP Severe Pain (Pain Scale 7-10) 11/02/17 16:00 11/09/17 15:59 11/08/17 15:35 Nitroglycerin (Ntg) 0.4 mg Q5M X 3 DOSES PRN SL Prn Chest Pain 11/02/17 15:00 12/02/17 14:59 11/03/17 08:15 Nystatin (Nystatin) 5 ml QID ORAL 11/02/17 18:00 11/09/17 17:59 11/08/17 12:38 Ondansetron HCl (Zofran) 4 mg Q6H PRN IVP Nausea & Vomiting 11/02/17 15:00 12/02/17 14:59 11/08/17 15:36 Pantoprazole (Protonix) 40 mg DAILY IVP 11/03/17 09:00 12/03/17 08:59 11/08/17 08:46 Polyethylene Glycol (Miralax) 17 gm HSPRN PRN ORAL Constipation 11/02/17 15:00 12/02/17 14:59 Temazepam (Restoril) 15 mg HSPRN PRN ORAL Insomnia 11/02/17 15:00 11/09/17 14:59 11/07/17 22:54 Trimethoprim/ Sulfamethoxazole (Bactrim-DS) 1 tab DAILY ORAL 11/05/17 09:00 11/12/17 08:59 11/08/17 08:46 Valganciclovir (Valcyte) 900 mg Q12HR ORAL 11/04/17 21:15 12/04/17 13:59 11/08/17 08:45 Tramaine Wick MD Nov 08, 2017 19:55
[2017-11-08 20:00] VITALS: BP 128/77
[2017-11-09] VITALS: BP 113/71
[2017-11-09] MEDS: Morphine Sulfate 4mg/ml Inj IVP PRN ×4 (01:46→14:56)
[2017-11-09 04:00] VITALS: BP 117/72
[2017-11-09] MEDS: D5 1/2NS 1,000 ML IV SCH (04:01)
[2017-11-09 06:21] LABS: BASOPHILS % (AUTO) 0.3 % (0.0-2.0); EOSINOPHILS % (AUTO) 0.4 % (0.0-3.0); HEMATOCRIT 35.3 % (42.0-52.0); HEMOGLOBIN 12.8 G/DL (14.2-18.0); LYMPHOCYTES % (AUTO) 13.1 % (20.0-45.0); MEAN CORPUSCULAR VOLUME 82 FL (80-99); MONOCYTES % (AUTO) 4.7 % (1.0-10.0); NEUTROPHILS % (AUTO) 81.6 % (45.0-75.0); PLATELET COUNT 170 K/UL (150-450); RED BLOOD COUNT 4.31 M/UL (4.70-6.10); RED CELL DISTRIBUTION WIDTH 14.8 % (11.6-14.8)
[2017-11-09 06:44] LABS: ANION GAP 8 mmol/L (5-15); BLOOD UREA NITROGEN 5 mg/dL (7-18); CALCIUM 8.4 MG/DL (8.5-10.1); CARBON DIOXIDE 25 MMOL/L (21-32); CHLORIDE 98 MMOL/L (98-107); POTASSIUM 3.7 MMOL/L (3.5-5.1); SODIUM 131 MMOL/L (136-145)
[2017-11-09 08:00] VITALS: BP 116/70
[2017-11-09] MEDS: Metoprolol Tartrate 50mg tab ORAL SCH ×2 (08:57→18:00)
[2017-11-09] MEDS: Pantoprazole Inj IVP SCH (08:57)
[2017-11-09] MEDS: Lisinopril 20mg tab ORAL SCH (08:57)
[2017-11-09] MEDS: Bactrim-DS 1 tab ORAL SCH (08:58)
[2017-11-09] MEDS: Nystatin Susp 500,000 units/5ml ORAL SCH ×2 (08:58→12:35)
[2017-11-09] MEDS: Heparin 5000 units/ml inj SUBQ SCH (08:59)
[2017-11-09 12:00] VITALS: BP 119/75
--- NOTE | 2017-11-09 13:36 | Infectious Diseases Prog Note ---
Assessment/Plan Assessment/Plan ASSESSMENT: The patient is a 47-year-old male with, Leukocytosis ? Etio low garde fever , SP Oral thrush. Esophagitis, candidiasis, thrush Status post EGD, SP Bx ( Path Neg for CMV and HSV). HIV/AIDS noncompliant, CD4 count of 101 ( 08/2017)=> CD4 221 ( 10/2017) History of HIV, noncompliant with taking his medication, CD4 in 2013 was 283. Hepatitis panel has been negative in 2014. History of CHF. Hypertension. Diverticulosis Anxiety/depression. PLAN: continue the patient on Diflucan d # 7 / 10 , add oral Vanco d# 1 cont patient on Bactrim for PCP prophylaxis. restart HIV medication as outpatient. SP Valcyte d# 6 Monitor CBC and BMP. Monitor chest x-ray. cryptococcus antigen coccidio AB AFB and fungal blood culture. blood and Urine Cx Cxray C Diff Subjective Allergies: Coded Allergies: No Known Allergies (Unverified , 09/08/13) Subjective feeling better Objective Vital Signs Last 24 Hour Vital Signs Date Time Temp Pulse Resp B/P (MAP) Pulse Ox O2 Delivery O2 Flow Rate FiO2 11/09/17 12:00 97.3 68 16 119/75 98 Room Air 97.3 11/09/17 08:57 77 116/70 11/09/17 08:57 116/70 11/09/17 08:00 96.2 77 18 116/70 94 Room Air 96.2 11/09/17 04:00 98.2 86 17 117/72 98 Room Air 98.2 11/09/17 00:00 98.8 86 18 113/71 98 Room Air 98.8 11/08/17 20:00 99.9 86 20 128/77 98 Room Air 99.9 11/08/17 17:31 94 124/75 11/08/17 16:05 98.1 11/08/17 15:57 98.1 94 18 124/75 98 Room Air 98.1 11/08/17 15:35 98.1 Height (Feet): 5 Height (Inches): 5.00 Weight (Pounds): 180 HEENT: atraumatic Respiratory/Chest: no respiratory distress Cardiovascular: regular rhythm Abdomen: no organomegaly Laboratory Tests Test 11/09/17 05:25 White Blood Count 17.0 K/UL (4.8-10.8) H Red Blood Count 4.31 M/UL (4.70-6.10) L Hemoglobin 12.8 G/DL (14.2-18.0) L Hematocrit 35.3 % (42.0-52.0) L Mean Corpuscular Volume 82 FL (80-99) Mean Corpuscular Hemoglobin 29.7 PG (27.0-31.0) Mean Corpuscular Hemoglobin Concent 36.3 G/DL (32.0-36.0) H Red Cell Distribution Width 14.8 % (11.6-14.8) Platelet Count 170 K/UL (150-450) Mean Platelet Volume 8.7 FL (6.5-10.1) Neutrophils (%) (Auto) 81.6 % (45.0-75.0) H Lymphocytes (%) (Auto) 13.1 % (20.0-45.0) L Monocytes (%) (Auto) 4.7 % (1.0-10.0) Eosinophils (%) (Auto) 0.4 % (0.0-3.0) Basophils (%) (Auto) 0.3 % (0.0-2.0) Sodium Level 131 MMOL/L (136-145) L Potassium Level 3.7 MMOL/L (3.5-5.1) Chloride Level 98 MMOL/L (98-107) Carbon Dioxide Level 25 MMOL/L (21-32) Anion Gap 8 mmol/L (5-15) Blood Urea Nitrogen 5 mg/dL (7-18) L Creatinine 1.0 MG/DL (0.55-1.30) Estimat Glomerular Filtration Rate > 60 mL/min (>60) Glucose Level 110 MG/DL (74-106) H Calcium Level 8.4 MG/DL (8.5-10.1) L Current Medications Medications (Trade) Dose Ordered Sig/Beau Route PRN Reason Start Time Stop Time Status Last Admin Dose Admin Acetaminophen (Tylenol) 650 mg Q4H PRN ORAL fever 11/02/17 15:00 12/02/17 14:59 11/08/17 08:47 Al Hydroxide/Mg Hydroxide (Mylanta II) 30 ml Q6H PRN ORAL dyspepsia 11/02/17 15:00 12/02/17 14:59 11/07/17 22:54 Dextrose (Dextrose 50%) 25 ml STAT PRN IV Hypoglycemia BS 60-69 11/02/17 15:00 12/02/17 14:59 Dextrose (Dextrose 50%) 50 ml STAT PRN IV Hypoglycemia BS<60 11/02/17 15:45 12/02/17 15:44 Dextrose/Sodium Chloride 1,000 ml @ 50 mls/hr Q20H IV 11/06/17 16:00 12/02/17 15:59 11/09/17 04:01 Diphenhydramine HCl (Benadryl) 25 mg Q6H PRN ORAL Itching/Pruritis 11/02/17 15:00 12/02/17 14:59 Famotidine (Pepcid I.v.) 20 mg QHS IVP 11/02/17 21:00 12/02/17 20:59 11/08/17 21:43 Fluconazole/ Sodium Chloride 100 ml @ 100 mls/hr Q24H IV 11/03/17 12:00 11/10/17 11:59 11/09/17 12:35 Heparin Sodium (Porcine) (Heparin 5000 units/ml) 5,000 units EVERY 12 HOURS SUBQ 11/02/17 21:00 12/02/17 20:59 11/09/17 08:59 Lisinopril (Prinivil) 40 mg DAILY ORAL 11/03/17 09:00 12/03/17 08:59 11/09/17 08:57 Metoprolol Tartrate (Lopressor) 50 mg BID ORAL 11/02/17 18:00 12/02/17 17:59 11/09/17 08:57 Morphine Sulfate (Morphine Sulfate) 2 mg EVERY 4 HOURS PRN IVP Severe Pain (Pain Scale 7-10) 11/02/17 16:00 11/09/17 15:59 11/09/17 10:07 Nitroglycerin (Ntg) 0.4 mg Q5M X 3 DOSES PRN SL Prn Chest Pain 11/02/17 15:00 12/02/17 14:59 11/03/17 08:15 Nystatin (Nystatin) 5 ml QID ORAL 11/02/17 18:00 11/09/17 17:59 11/09/17 12:35 Ondansetron HCl (Zofran) 4 mg Q6H PRN IVP Nausea & Vomiting 11/02/17 15:00 12/02/17 14:59 11/08/17 21:43 Pantoprazole (Protonix) 40 mg DAILY IVP 11/03/17 09:00 12/03/17 08:59 11/09/17 08:57 Polyethylene Glycol (Miralax) 17 gm HSPRN PRN ORAL Constipation 11/02/17 15:00 12/02/17 14:59 Temazepam (Restoril) 15 mg HSPRN PRN ORAL Insomnia 11/02/17 15:00 11/09/17 14:59 11/07/17 22:54 Trimethoprim/ Sulfamethoxazole (Bactrim-DS) 1 tab DAILY ORAL 11/05/17 09:00 11/12/17 08:59 11/09/17 08:58 Tramaine Wick MD Nov 09, 2017 13:36
--- NOTE | 2017-11-09 14:44 | GI Progress Note ---
Assessment/Plan Problems: (1) Esophageal ulcer ICD Codes: K22.10 - Ulcer of esophagus without bleeding SNOMED: 51808158 (2) Candidiasis, esophageal ICD Codes: B37.81 - Candidal esophagitis SNOMED: 06050878 (3) HIV (human immunodeficiency virus infection) ICD Codes: Z21 - HIV (human immunodeficiency virus infection) SNOMED: 56821207 (4) Thrush ICD Codes: B37.0 - Candidal stomatitis SNOMED: 71259853 (5) CHF exacerbation Status: stable Status Narrative Discussed with Dr. Coe. Assessment/Plan SUMMARY OF FINDINGS: 1. Severe miguel infection of the oral cavity and also esophagus. 2. Multiple ulcerations of the distal esophagus suspicious for HSV versus CMV. pathology, see full report >> negative for CMV and HSV PLAN: Diflucan IV 200 mg daily for 10 days. pain mgmt abx per ID fu labs fu surg path tolerating diet Subjective Subjective tolerating foods Objective Last 24 Hour Vital Signs Date Time Temp Pulse Resp B/P (MAP) Pulse Ox O2 Delivery O2 Flow Rate FiO2 11/09/17 12:00 97.3 68 16 119/75 98 Room Air 97.3 11/09/17 08:57 77 116/70 11/09/17 08:57 116/70 11/09/17 08:00 96.2 77 18 116/70 94 Room Air 96.2 11/09/17 04:00 98.2 86 17 117/72 98 Room Air 98.2 11/09/17 00:00 98.8 86 18 113/71 98 Room Air 98.8 11/08/17 20:00 99.9 86 20 128/77 98 Room Air 99.9 11/08/17 17:31 94 124/75 11/08/17 16:05 98.1 11/08/17 15:57 98.1 94 18 124/75 98 Room Air 98.1 11/08/17 15:35 98.1 Intake and Output 11/08/17 11/09/17 19:00 07:00 Intake Total 360 ml 50 ml Balance 360 ml 50 ml Intake Oral 360 ml 50 ml # Voids 3 3 # Bowel Movements 4 Laboratory Tests Test 11/09/17 05:25 White Blood Count 17.0 K/UL (4.8-10.8) H Red Blood Count 4.31 M/UL (4.70-6.10) L Hemoglobin 12.8 G/DL (14.2-18.0) L Hematocrit 35.3 % (42.0-52.0) L Mean Corpuscular Volume 82 FL (80-99) Mean Corpuscular Hemoglobin 29.7 PG (27.0-31.0) Mean Corpuscular Hemoglobin Concent 36.3 G/DL (32.0-36.0) H Red Cell Distribution Width 14.8 % (11.6-14.8) Platelet Count 170 K/UL (150-450) Mean Platelet Volume 8.7 FL (6.5-10.1) Neutrophils (%) (Auto) 81.6 % (45.0-75.0) H Lymphocytes (%) (Auto) 13.1 % (20.0-45.0) L Monocytes (%) (Auto) 4.7 % (1.0-10.0) Eosinophils (%) (Auto) 0.4 % (0.0-3.0) Basophils (%) (Auto) 0.3 % (0.0-2.0) Sodium Level 131 MMOL/L (136-145) L Potassium Level 3.7 MMOL/L (3.5-5.1) Chloride Level 98 MMOL/L (98-107) Carbon Dioxide Level 25 MMOL/L (21-32) Anion Gap 8 mmol/L (5-15) Blood Urea Nitrogen 5 mg/dL (7-18) L Creatinine 1.0 MG/DL (0.55-1.30) Estimat Glomerular Filtration Rate > 60 mL/min (>60) Glucose Level 110 MG/DL (74-106) H Calcium Level 8.4 MG/DL (8.5-10.1) L Height (Feet): 5 Height (Inches): 5.00 Weight (Pounds): 180 General Appearance: WD/WN, no apparent distress, alert Cardiovascular: normal rate Respiratory/Chest: normal breath sounds, no respiratory distress Abdominal Exam: normal bowel sounds, non tender, soft Extremities: normal range of motion, non-tender Ramonita Villa N.PSanjana Nov 09, 2017 14:44
--- NOTE | 2017-11-09 15:51 | Diagnostic Imaging Report ---
Indication: Cough Technique: One view of the chest Comparison: November 02, 2017 Findings: Blunting of the left costophrenic sulcus likely reflects small amount of atelectasis or pleural fluid, not evident previously. Lungs and pleural spaces are otherwise clear The heart is upper limits of normal in size. Impression: Left basilar atelectasis versus trace left pleural effusion No acute process otherwise
[2017-11-09 16:00] VITALS: BP 109/69
[2017-11-09] MEDS ORDERED: FLUCONAZOLE100 MG ORAL (16:05)
--- NOTE | 2017-11-09 16:07 | Pulmonology Progress Note ---
Assessment/Plan Problems: (1) GERD (gastroesophageal reflux disease) (2) HIV (human immunodeficiency virus infection) (3) Cardiomyopathy (4) EF of 20% Assessment/Plan feeling better advance diet improving slowly continue abx symptomatic treatment f/u by GI and ID dc home with oral diflucan Subjective ROS Limited/Unobtainable: No Constitutional: Reports: no symptoms HEENT: Repors: no symptoms Respiratory: Reports: no symptoms Cardiovascular: Reports: no symptoms Allergies: Coded Allergies: No Known Allergies (Unverified , 09/08/13) Objective Last 24 Hour Vital Signs Date Time Temp Pulse Resp B/P (MAP) Pulse Ox O2 Delivery O2 Flow Rate FiO2 11/09/17 12:00 97.3 68 16 119/75 98 Room Air 97.3 11/09/17 08:57 77 116/70 11/09/17 08:57 116/70 11/09/17 08:00 96.2 77 18 116/70 94 Room Air 96.2 11/09/17 04:00 98.2 86 17 117/72 98 Room Air 98.2 11/09/17 00:00 98.8 86 18 113/71 98 Room Air 98.8 11/08/17 20:00 99.9 86 20 128/77 98 Room Air 99.9 11/08/17 17:31 94 124/75 Intake and Output 11/08/17 11/09/17 19:00 07:00 Intake Total 360 ml 50 ml Balance 360 ml 50 ml Intake Oral 360 ml 50 ml # Voids 3 3 # Bowel Movements 4 Objective General Appearance: WD/WN Lines, tubes and drains: peripheral HEENT: normocephalic, atraumatic Neck: non-tender, normal alignment Respiratory/Chest: chest wall non-tender, lungs clear Breasts: no masses Cardiovascular/Chest: normal peripheral pulses Abdomen: normal bowel sounds, non tender Genitourinary/Rectal: normal genital exam Extremities: normal range of motion Skin Exam: normal pigmentation Laboratory Tests 11/09/17 05:25: White Blood Count 17.0H, Red Blood Count 4.31L, Hemoglobin 12.8L, Hematocrit 35.3L, Mean Corpuscular Volume 82, Mean Corpuscular Hemoglobin 29.7, Mean Corpuscular Hemoglobin Concent 36.3H, Red Cell Distribution Width 14.8, Platelet Count 170, Mean Platelet Volume 8.7, Neutrophils (%) (Auto) 81.6H, Lymphocytes (%) (Auto) 13.1L, Monocytes (%) (Auto) 4.7, Eosinophils (%) (Auto) 0.4, Basophils (%) (Auto) 0.3, Sodium Level 131L, Potassium Level 3.7, Chloride Level 98, Carbon Dioxide Level 25, Anion Gap 8, Blood Urea Nitrogen 5L, Creatinine 1.0, Estimat Glomerular Filtration Rate > 60, Glucose Level 110H, Calcium Level 8.4L Current Medications Medications (Trade) Dose Ordered Sig/Beau Route PRN Reason Start Time Stop Time Status Last Admin Dose Admin Acetaminophen (Tylenol) 650 mg Q4H PRN ORAL fever 11/02/17 15:00 12/02/17 14:59 11/08/17 08:47 Al Hydroxide/Mg Hydroxide (Mylanta II) 30 ml Q6H PRN ORAL dyspepsia 11/02/17 15:00 12/02/17 14:59 11/07/17 22:54 Dextrose (Dextrose 50%) 25 ml STAT PRN IV Hypoglycemia BS 60-69 11/02/17 15:00 12/02/17 14:59 Dextrose (Dextrose 50%) 50 ml STAT PRN IV Hypoglycemia BS<60 11/02/17 15:45 12/02/17 15:44 Dextrose/Sodium Chloride 1,000 ml @ 50 mls/hr Q20H IV 11/06/17 16:00 12/02/17 15:59 11/09/17 04:01 Diphenhydramine HCl (Benadryl) 25 mg Q6H PRN ORAL Itching/Pruritis 11/02/17 15:00 12/02/17 14:59 Famotidine (Pepcid I.v.) 20 mg QHS IVP 11/02/17 21:00 12/02/17 20:59 11/08/17 21:43 Fluconazole/ Sodium Chloride 100 ml @ 100 mls/hr Q24H IV 11/03/17 12:00 11/10/17 11:59 11/09/17 12:35 Heparin Sodium (Porcine) (Heparin 5000 units/ml) 5,000 units EVERY 12 HOURS SUBQ 11/02/17 21:00 12/02/17 20:59 11/09/17 08:59 Lisinopril (Prinivil) 40 mg DAILY ORAL 11/03/17 09:00 12/03/17 08:59 11/09/17 08:57 Metoprolol Tartrate (Lopressor) 50 mg BID ORAL 11/02/17 18:00 12/02/17 17:59 11/09/17 08:57 Nitroglycerin (Ntg) 0.4 mg Q5M X 3 DOSES PRN SL Prn Chest Pain 11/02/17 15:00 12/02/17 14:59 11/03/17 08:15 Nystatin (Nystatin) 5 ml QID ORAL 11/02/17 18:00 11/09/17 17:59 11/09/17 12:35 Ondansetron HCl (Zofran) 4 mg Q6H PRN IVP Nausea & Vomiting 11/02/17 15:00 12/02/17 14:59 11/08/17 21:43 Pantoprazole (Protonix) 40 mg DAILY IVP 11/03/17 09:00 12/03/17 08:59 11/09/17 08:57 Polyethylene Glycol (Miralax) 17 gm HSPRN PRN ORAL Constipation 11/02/17 15:00 12/02/17 14:59 Trimethoprim/ Sulfamethoxazole (Bactrim-DS) 1 tab DAILY ORAL 11/05/17 09:00 11/12/17 08:59 11/09/17 08:58 Lyn Wesley MD Nov 09, 2017 16:07
--- NOTE | 2017-11-10 18:43 | Discharge Summary ---
Discharge Summary Discharge Summary Discharge Summary DATE OF ADMISSION: 11/02/2017 DATE OF DISCHARGE: 11/09/2017 CONSULTANTS: Dr. Tay Wick BRIEF HOSPITAL COURSE: Patient is a 47-year-old male with history of HIV, [place] [facility] [place] of unable to eat or swallow for 5 days because of pain in his mouth and throat. He was recently discharged from [facility] after a two-week hospitalization for pneumonia. He had been unable to eat or swallow for 5 days because of his pain, pain was burning and not exertional or positional. He had been feeling weak because he was unable to take his medications. He was prescribed Bactrim. He also complained of rash that developed 3 days ago, rash spread to his legs, there was no itching and no throat swelling. He was not discharged on any antivirals and was supposed to follow-up with his doctor for treatment of HIV. He is unaware of his CD4 or viral load. On evaluation at ED, he had normal white count. Urinalysis showed pyuria. He was given Rocephin. EKG without any acute changes, chest x-ray was unremarkable. Due to his inability to swallow, he was admitted for further workup. He underwent EGD on 11/03/2017, findings showed severe Kelly infection in the oral cavity and esophagus. There was multiple ulcerations on the distal esophagus suspicious for HSV versus CMV. Infectious disease specialist was called in. He was given Diflucan and IV ganciclovir was added. He was eventually started on PCP prophylaxis. CMV IgG antibody was positive, HSV 1 IgG antibody positive. Oral Vancomycin was also added. Esophageal biopsy was negative for CMV and HSV. He had superimposed fungal organism consistent with Kelly. Diet was advanced. He was eventually discharged home to continue oral Diflucan. FINAL DIAGNOSES: Kelly esophagitis Oral thrush HIV, noncompliant with medications GERD Cardiomyopathy Hypertension Anxiety/depression Diverticulosis DISPOSITION: Patient was discharged home DISCHARGE MEDICATIONS: Refer to Discharge Medication List. Continue with fluconazole 100 mg daily for 5 more days DISCHARGE INSTRUCTIONS: Follow up with PCP in a week. I have been assigned to dictate discharge summary on this account, and I was not involved in the patient's management. Ann Marie Thomson NP Nov 10, 2017 18:43
== END 2017-11-09 18:20 | disposition home or self-care (01) | DRG 894 ==
LOC: EMR 12:00 → 4W 13:05 → EDBEDREQ 13:23
PROC: 0DB58ZX Excision of Esophagus, Via Natural or Artificial Opening Endoscopic, Diagnostic (ICD-10-PCS; principal; 2017-11-03 10:21)
DX: B37.81 Candidal esophagitis (principal); B20 Human immunodeficiency virus [HIV] disease; B37.0 Candidal stomatitis; K22.10 Ulcer of esophagus without bleeding; I11.0 Hypertensive heart disease with heart failure; I50.9 Heart failure, unspecified; R21 Rash and other nonspecific skin eruption; N28.9 Disorder of kidney and ureter, unspecified; F41.9 Anxiety disorder, unspecified; F32.9 Major depressive disorder, single episode, unspecified; Z91.19 Patient's noncompliance with other medical treatment and regimen; K21.0 Gastro-esophageal reflux disease with esophagitis; K57.90 Diverticulosis of intestine, part unspecified, without perforation or abscess without bleeding; N39.0 Urinary tract infection, site not specified
CPT/HCPCS: 36415; 71045; 80048; 80053; 80307; 81003; 82150; 82550; 83605; 83690; 83735; 83880; 84100; 84484; 85025; 85610; 85651; 85730; 86140; 86360; 86635; 86644; 86695; 86696; 86999; 87040; 87449; 93005; 94003; 94150; 94640; 94664; 99285; J2405

== ENCOUNTER 2018-09-07 22:33 | Emergency (ER) | payer OTHER ==
[~2018-09-07] VITALS: Ht 177.8 cm; Wt 87.5 kg
[~2018-09-07 22:33] MED LIST changes: +FLUCONAZOLE100 MG ORAL
--- NOTE | 2018-09-07 22:45 | NUR ---
ED Nurse Note: Pt states he feels like he is having PNA for 1 week. Pt states he is dehydration, coughing with some mucus, chill, fever, feels very weak. patient's temp at time of arrival patient was 103.0, dr brenda oleary
[2018-09-07 22:50] VITALS: BP 137/83
--- NOTE | 2018-09-07 23:13 | Emergency Room Report ---
History of Present Illness General Chief Complaint: Upper Respiratory Illness Source: Patient Present Illness HPI Patient presents with complaint of cough and congestion Reports that he feels short of breath and dehydrated Also has been having fever over the past 2 days Patient reports previous history of HIV with unknown CD4 and viral numbers Denies any neck pain or photophobia patient has had recent hospitalizations for similar complaints denies any focal weakness and eyes any blood in the sputum Allergies: Coded Allergies: No Known Allergies (Unverified , 09/08/13) Patient History Past Medical History: see triage record Pertinent Family History: none Reviewed Nursing Documentation: PMH: Agreed; PSxH: Agreed Nursing Documentation-PMH Hx Cardiac Problems: Yes - CHF Hx Hypertension: Yes Hx Pacemaker: No - HIV+ Hx Cancer: No Hx Gastrointestinal Problems: Yes Hx Neurological Problems: No Review of Systems All Other Systems: negative except mentioned in HPI Physical Exam Vital Signs Date Time Temp Pulse Resp B/P (MAP) Pulse Ox O2 Delivery O2 Flow Rate FiO2 09/07/18 22:46 102.6 107 18 137/83 98 Sp02 EP Interpretation: reviewed, normal General Appearance: well appearing, no apparent distress Head: normocephalic, atraumatic Eyes: bilateral eye PERRL, bilateral eye EOMI ENT: hearing grossly normal, normal pharynx, TMs + canals normal, uvula midline Neck: full range of motion, supple, no meningismus, no bony tend Respiratory: no rhonchi, no respiratory distress, no retraction, no accessory muscle use, crackles - Bilaterally Cardiovascular #1: normal peripheral pulses, regular rate, rhythm, no edema, no gallop, no JVD, no murmur Gastrointestinal: normal bowel sounds, non tender, soft, no mass, no organomegaly, non-distended, no guarding, no hernia, no pulsatile mass, no rebound Genitourinary: no CVA tenderness Musculoskeletal: normal inspection Neurologic: oriented x3, responsive, tugboat engineer III-XII nml as tested, motor strength/ tone normal, sensory intact Psychiatric: mood/affect normal Skin: normal color, no rash, warm/dry, palpation normal Lymphatic: normal inspection, no adenopathy Medical Decision Making Diagnostic Impression: Primary Impression: Upper respiratory infection Additional Impressions: Acute CHF EF of 20% Fever ER Course Patient is a fairly complex patient with multiple differential to consideration including but not limited to cardiac cardiopulmonary and vascular emergencies Given the patient's febrile status other infectious pathology also entertained PCP pneumonia and is to be considered given the patient's history X-ray shows pulmonary congestion blood work reveals elevated BNP patient requiring further Diuretics Antibiotics and inpatient care Labs Test 09/07/18 23:00 09/07/18 23:23 09/08/18 00:01 White Blood Count 8.2 K/UL (4.8-10.8) Red Blood Count 4.96 M/UL (4.70-6.10) Hemoglobin 14.1 G/DL (14.2-18.0) Hematocrit 41.2 % (42.0-52.0) Mean Corpuscular Volume 83 FL (80-99) Mean Corpuscular Hemoglobin 28.5 PG (27.0-31.0) Mean Corpuscular Hemoglobin Concent 34.3 G/DL (32.0-36.0) Red Cell Distribution Width 13.1 % (11.6-14.8) Platelet Count 174 K/UL (150-450) Mean Platelet Volume 9.9 FL (6.5-10.1) Neutrophils (%) (Auto) 81.6 % (45.0-75.0) Lymphocytes (%) (Auto) 12.8 % (20.0-45.0) Monocytes (%) (Auto) 4.7 % (1.0-10.0) Eosinophils (%) (Auto) 0.4 % (0.0-3.0) Basophils (%) (Auto) 0.5 % (0.0-2.0) Urine Color Yellow Urine Appearance Clear Urine pH 6 (4.5-8.0) Urine Specific [place] 1.025 (1.005-1.035) Urine Protein 4+ (NEGATIVE) Urine Glucose (UA) Negative (NEGATIVE) Urine Ketones 1+ (NEGATIVE) Urine Blood 2+ (NEGATIVE) Urine Nitrite Negative (NEGATIVE) Urine Bilirubin Negative (NEGATIVE) Urine Urobilinogen 1 MG/DL (0.0-1.0) Urine Leukocyte Esterase Negative (NEGATIVE) Urine RBC 2-4 /HPF (0 - 0) Urine WBC 0 /HPF (0 - 0) Urine Squamous Epithelial Cells Few /LPF (NONE/OCC) Urine Bacteria Few /HPF (NONE) Sodium Level 135 MMOL/L (136-145) Potassium Level 3.9 MMOL/L (3.5-5.1) Chloride Level 98 MMOL/L (98-107) Carbon Dioxide Level 26 MMOL/L (21-32) Anion Gap 11 mmol/L (5-15) Blood Urea Nitrogen 15 mg/dL (7-18) Creatinine 1.3 MG/DL (0.55-1.30) Estimat Glomerular Filtration Rate 58.9 mL/min (>60) Glucose Level 105 MG/DL (74-106) Calcium Level 8.6 MG/DL (8.5-10.1) Total Bilirubin 0.6 MG/DL (0.2-1.0) Aspartate Amino Transf (AST/SGOT) 34 U/L (15-37) Alanine Aminotransferase (ALT/SGPT) 19 U/L (12-78) Alkaline Phosphatase 67 U/L (46-116) Total Creatine Kinase 58 U/L (26-308) Creatine Kinase MB < 0.5 NG/ML (0.0-3.6) Creatine Kinase MB Relative Index 0.8 Pro-B-Type Natriuretic Peptide 5014 pg/mL (0-125) Total Protein 8.9 G/DL (6.4-8.2) Albumin 2.9 G/DL (3.4-5.0) Globulin 6.0 g/dL Albumin/Globulin Ratio 0.5 (1.0-2.7) Troponin I 0.043 ng/mL (0.000-0.056) Lactic Acid Level 1.90 mmol/L (0.4-2.0) Rhythm Strip Diag. Results EP Interpretation: yes Rate: 110 Rhythm: no PVC's, no ectopy, other - Sinus tach Chest X-Ray Diagnostic Results Chest X-Ray Diagnostic Results : Chest X-Ray Ordered: Yes # of Views/Limited/Complete: 1 View Indication: Chest Pain EP Interpretation: Yes Interpretation: no consolidation, no effusion, no pneumothorax, other - Pulmonary congestion Impression: Other - Acute CHF Electronically Signed by: Atilio Brooks DO Last Vital Signs Date Time Temp Pulse Resp B/P (MAP) Pulse Ox O2 Delivery O2 Flow Rate FiO2 09/07/18 22:46 102.6 107 18 137/83 98 Status: improved Disposition: XFER SHT-TRM HOSP Condition: Serious Atilio Brooks DO Sep 07, 2018 23:13
[2018-09-07] MEDS ORDERED: Ipratropium 0.02% Inh Soln 2.5ml UD HHN ONE (23:15)
[2018-09-07] MEDS ORDERED: Albuterol ud Inhalation HHN ONE (23:15)
[2018-09-07 23:28] LABS: BASOPHILS % (AUTO) 0.5 % (0.0-2.0); EOSINOPHILS % (AUTO) 0.4 % (0.0-3.0); HEMATOCRIT 41.2 % (42.0-52.0); HEMOGLOBIN 14.1 G/DL (14.2-18.0); LYMPHOCYTES % (AUTO) 12.8 % (20.0-45.0); MEAN CORPUSCULAR VOLUME 83 FL (80-99); MONOCYTES % (AUTO) 4.7 % (1.0-10.0); NEUTROPHILS % (AUTO) 81.6 % (45.0-75.0); PLATELET COUNT 174 K/UL (150-450); RED BLOOD COUNT 4.96 M/UL (4.70-6.10); RED CELL DISTRIBUTION WIDTH 13.1 % (11.6-14.8); WHITE BLOOD COUNT 8.2 K/UL (4.8-10.8)
[2018-09-07 23:30] LABS: APPEARANCE,URINE CLEAR; BILIRUBIN, URINE NEGATIVE (NEGATIVE); GLUCOSE, URINE (UA) NEGATIVE (NEGATIVE); KETONES,URINE 1+ (NEGATIVE); LEUKOCYTE ESTERASE ,URINE NEGATIVE (NEGATIVE); NITRITE,URINE NEGATIVE (NEGATIVE); PH,URINE 6 (4.5-8.0); PROTEIN,URINE 4+ (NEGATIVE); UROBILINOGEN,URINE 1 MG/DL (0.0-1.0)
--- NOTE | 2018-09-07 23:30 | NUR ---
ED Nurse Note: Dr. Brooks notified and aware of patient;s temperature of 103.0
[2018-09-07 23:31] LABS: COLOR,URINE YELLOW
[2018-09-07 23:41] LABS: ANION GAP 11 mmol/L (5-15); BLOOD UREA NITROGEN 15 mg/dL (7-18); CALCIUM 8.6 MG/DL (8.5-10.1); CARBON DIOXIDE 26 MMOL/L (21-32); CHLORIDE 98 MMOL/L (98-107); CREATININE 1.3 MG/DL (0.55-1.30); POTASSIUM 3.9 MMOL/L (3.5-5.1); SODIUM 135 MMOL/L (136-145)
[2018-09-07 23:55] LABS: ALANINE AMINOTRANSFERASE 19 U/L (12-78); ALBUMIN 2.9 G/DL (3.4-5.0); ALBUMIN/GLOBULIN RATIO 0.5 (1.0-2.7); ALKALINE PHOSPHATASE 67 U/L (46-116); ASPARTATE AMINO TRANSFERASE 34 U/L (15-37); BILIRUBIN,TOTAL 0.6 MG/DL (0.2-1.0); CKMB < 0.5 NG/ML (0.0-3.6); CREATINE KINASE 58 U/L (26-308)
[2018-09-08] MEDS ORDERED: Acetaminophen 500mg (ES) tab ORAL ONE ×2 (00:21→00:30)
[2018-09-08] MEDS ORDERED: Bactrim-DS 1 tab ORAL ONE (01:00)
[2018-09-08 01:33] VITALS: BP 130/89
--- NOTE | 2018-09-08 01:33 | NUR ---
ED Nurse Note: pt temp is 102.5F pt offered water and cold compress but pt refused. ermd aware.
[2018-09-08 02:45] VITALS: BP 130/89
--- NOTE | 2018-09-08 02:45 | NUR ---
ED Nurse Note: pt was tranfered by 2 emt with stable vital signs. report given by prince brody to recieving nurse.
--- NOTE | 2018-09-08 11:08 | Diagnostic Imaging Report ---
Indication: Shortness of breath Technique: One view of the chest Comparison: 11/09/2017 Findings: The heart is borderline enlarged. There is equivocal mild interstitial congestion, not evident previously. No focal airspace consolidation Impression: Borderline cardiomegaly Equivocal minimal interstitial congestion
--- NOTE | 2018-09-10 16:14 | Cardiology Report ---
APPROVED REPORT EKG Measurement Heart [id number] Sinus tachycardia Possible Left atrial enlargement Left anterior fascicular block Left ventricular hypertrophy Cannot rule out Septal infarct, age undetermined T wave abnormality, consider lateral ischemia Abnormal ECG
== END 2018-09-08 02:50 | disposition short-term general hospital (02) ==
LOC: EMR 23:00
DX: J06.9 Acute upper respiratory infection, unspecified (principal); I11.0 Hypertensive heart disease with heart failure; I50.9 Heart failure, unspecified
CPT/HCPCS: 36415; 71045; 80053; 81003; 82550; 82553; 83605; 83880; 84484; 85025; 86710; 87040; 93005; 94640; 94664; 96374; 99284; J1940